=== PATIENT | male | born 1980 | race Caucasian/White ===

== ENCOUNTER 2018-01-11 11:37 | Emergency (ER) | payer OTHER, SELFPAY | END 2018-01-11 13:56 | disposition home or self-care (01) | DX: S06.0X0D Concussion without loss of consciousness, subsequent encounter (principal) | CPT/HCPCS: 96372; 99283; J1885 ==

== ENCOUNTER 2018-03-15 09:04 | Emergency (ER) | payer OTHER, MEDICAID, SELFPAY ==
[2018-03-15 09:05] VITALS: BP 142/101; PULSE 89; RESP 20; TEMP 37.1; O2SAT 99
--- NOTE | 2018-03-15 09:23 | ED.BURNSMOKE ---
HPI - Burn/Smoke Inhalation General Stated complaint: BLISTERS Time Seen by Provider: 03/15/18 09:05 Source: patient Mode of arrival: ambulatory Limitations: no limitations History of Present Illness HPI Narrative: Otherwise healthy 37-year-old male here for evaluation of a sunburn that is blistering on his bilateral upper arms. Patient states that it happened 2 days ago. States he has tried aloe which has cause it to be worse. Has not tried anything else. Is here because of the pain. Related Data Home Medications Medication Instructions Recorded Confirmed acyclovir [Zovirax] 400 mg PO BID #0 01/19/17 albuterol sulfate [Ventolin HFA] 1 puff INH #0 01/19/17 atorvastatin [Lipitor] 20 mg PO QDAY #0 01/19/17 azithromycin [Zithromax] 250 mg #0 01/19/17 disulfiram [Antabuse] 500 mg PO #0 01/19/17 hydrochlorothiazide 12.5 mg PO QDAY #0 01/19/17 metoprolol tartrate 25 mg PO BID #0 10/09/17 Previous Rx's Medication Instructions Recorded levofloxacin [Levaquin] 750 mg PO QDAY #15 tab 01/19/17 albuterol sulfate [Ventolin HFA] 0 puff INH Q4HP PRN #1 ea 10/09/17 Allergies Allergy/AdvReac Type Severity Reaction Status Date / Time amlodipine [AMLODIPINE] Allergy Unknown Unverified 01/03/18 12:02 Review of Systems Constitutional Denies chills, Denies fever(s) and Denies headache(s) ENT Ears, Nose, Mouth, and Throat: Denies headache(s) Cardiovascular Denies chest pain and Denies dyspnea Respiratory Denies cough and Denies dyspnea Integumentary/Breasts Comments: Sunburn with blistering bilateral arms Neurologic Denies headache(s) [facility] Social History Smoking Status: Never smoker Exam Const General: cooperative and well developed Nutritional Appearance: well nourished Orientation: alert, awake, oriented x3 and not confused Resp Effort & Inspection: normal respiratory effort Skin Other: Patient with sunburn bilateral upper arms from the elbows to the shoulders laterally with blistering and redness MDM - Burn/Smoke Inhalation MDM Narrative Medical decision making narrative: Patient was asking for pain medication. Told him that sunburns did not qualify for pain meds. We did discuss other treatments to include aloe and lotions. We also discussed use of Motrin. Informed him that in the future he does need to use sunscreen. Told him that blistering sunburns to increase his risk of skin cancer. He expressed understanding and agreement with plan Discharge Plan Departure Patient Disposition: Home, Self-Care Clinical Impression: Sunburn Instructions: How to Avoid Sunburn, Sunburn (Alternative Therapy), DI for Sunburn Activity Restrictions/Additional Instructions: Recommend that you continue the Motrin/Tylenol as needed. You can use other lotions such as Cetaphil or Aquaphor as needed. He could also use aloe. Recommend that in the future you wear sunscreen. Return to the emergency department for any new or worsening symptoms Prescriptions: No Action atorvastatin [Lipitor] 20 MG tablet 20 mg PO QDAY Qty: 0 RF: 0 azithromycin [Zithromax] 250 MG tablet 250 mg Qty: 0 RF: 0 albuterol sulfate [Ventolin HFA] 90 MCG/PUFF HFA aerosol inhaler 1 puff INH Qty: 0 RF: 0 acyclovir [Zovirax] 400 MG tablet 400 mg PO BID Qty: 0 RF: 0 hydrochlorothiazide 12.5 MG capsule 12.5 mg PO QDAY Qty: 0 RF: 0 disulfiram [Antabuse] 500 MG tablet 500 mg PO Qty: 0 RF: 0 levofloxacin [Levaquin] 750 MG tablet 750 mg PO QDAY Qty: 15 RF: 0 metoprolol tartrate 25 MG tablet 25 mg PO BID Qty: 0 RF: 0 albuterol sulfate [Ventolin HFA] 90 MCG/PUFF HFA aerosol inhaler INH Q4HP PRNQty: 1 RF: 0
== END 2018-03-15 09:38 | disposition home or self-care (01) ==
PROVIDERS: Emergency Provider Emergency Medicine; PCP Family Medicine
DX: L55.9 Sunburn, unspecified (principal)
CPT/HCPCS: 99282

== ENCOUNTER 2018-04-18 04:55 | Emergency (ER) | payer OTHER, MEDICAID, SELFPAY ==
[2018-04-18 05:03] VITALS: BP 147/101; PULSE 116; RESP 20; TEMP 36.9; O2SAT 100
[2018-04-18] MEDS: METOPROLOL 25 MG TABLET PO (05:42)
[2018-04-18 05:46] VITALS: BP 134/65; PULSE 91; RESP 18; O2SAT 100
--- NOTE | 2018-04-18 05:46 | ED_ITS ---
HPI - Arrhythmia/Palpitations General Chief Complaint: Arrhythmia/Palpitations Stated Complaint: head pain left, dizziness Time Seen by Provider: 04/18/18 05:04 Source: patient Mode of arrival: ambulatory Limitations: no limitations History of Present Illness HPI narrative: 38-year-old male here with multiple complaints. Patient states that for the past couple days he has had left-sided neck pain that gets worse when he touches it. Is in the back of his neck. No trauma. Patient is also here for evaluation of both low and high blood pressure and also a fast heart rate. He states that he does have a prescription for metoprolol but has been ? weaning himself off that medication because he states that when he smokes marijuana which he did last evening and then also several hours ago his blood pressure goes low. Patient also states that he feels now like he is coming down from his marijuana high and his heart rate is fast because of that. He is also here for complaints of pain and tingling around his left elbow and also on his left knee. Patient states that he was gurgling his symptoms and read some information about having a ?blood clot? and that is what he is concerned about. Related Data Home Medications Medication Instructions Recorded Confirmed acyclovir [Zovirax] 400 mg PO BID #0 01/19/17 albuterol sulfate [Ventolin HFA] 1 puff INH #0 01/19/17 atorvastatin [Lipitor] 20 mg PO QDAY #0 01/19/17 azithromycin [Zithromax] 250 mg #0 01/19/17 disulfiram [Antabuse] 500 mg PO #0 01/19/17 hydrochlorothiazide 12.5 mg PO QDAY #0 01/19/17 metoprolol tartrate 25 mg PO BID #0 10/09/17 Previous Rx's Medication Instructions Recorded levofloxacin [Levaquin] 750 mg PO QDAY #15 tab 01/19/17 albuterol sulfate [Ventolin HFA] 0 puff INH Q4HP PRN #1 ea 10/09/17 Allergies Allergy/AdvReac Type Severity Reaction Status Date / Time amlodipine [AMLODIPINE] Allergy Unknown Unverified 01/03/18 12:02 Review of Systems Constitutional Denies fatigue and Denies fever(s) ENT Ears, Nose, Mouth, and Throat: Denies vertigo and Reports dizziness Cardiovascular Denies chest pain, Reports rapid heart rate, Reports palpitations and Denies dyspnea Respiratory Denies cough and Denies dyspnea Gastrointestinal Gastrointestinal: Denies abdominal pain, Denies diarrhea, Denies nausea and Denies vomiting Musculoskeletal Comments: Occasional Left elbow burning and pain Left knee cap pain Integumentary/Breasts Denies lesions and Denies rash Neurologic Denies confusion, Denies vertigo and Reports dizziness Psychiatric Reports anxiety and Denies confusion Endocrine Denies fatigue and Reports palpitations Hematologic/Lymphatic Denies easy bleeding and Denies easy bruising [facility] Medical History Anxiety (Acute) Hypertension (Acute) Social History marital status: unknown Smoking Status: Never smoker alcohol intake: current substance use type: marijuana Exam Initial Vital Signs Initial Vital Signs: Vital Signs Temperature 98.5 F 04/18/18 05:03 Pulse Rate 116 H 04/18/18 05:03 Respiratory Rate 20 04/18/18 05:03 Blood Pressure 147/101 H 04/18/18 05:03 Pulse Oximetry 100 04/18/18 05:03 Const General: cooperative, healthy appearing, comfortable, well developed and well groomed Orientation: alert, awake and oriented x3 HENMT Head: normal to inspection, normocephalic and atraumatic Ears: TM's normal bilaterally Eyes General: appearance normal, both eyes and all related structures EOM: EOM intact bilaterally Neck Other: Patient with reproducible tenderness to palpation over the left-sided paraspinal/occipital muscle/trapezius muscle. Resp Effort & Inspection: normal respiratory effort Auscultation: clear to auscultation bilaterally Cardio Rate: tachycardic Rhythm: regular rhythm Pulses: radial pulses present Skin Lesions: no lesions Rashes: no rashes Extrem Other: Left upper extremity left lower extremity unremarkable Psych Appearance: grossly normal and well kempt Course Orders Ordered: ED Orders 04/18/18 05:06 EKG-12 Lead Stat Discontinued Medications Metoprolol Tartrate (Lopressor) 25 mg PO NOW ONE Stop: 04/18/18 05:30 Vital Signs - 8 hr 04/18/18 05:03 Temperature 98.5 F Pulse Rate 116 H Respiratory Rate 20 Blood Pressure 147/101 H Pulse Oximetry 100 MDM - Arrhythmia/Palpitations ECG Data Attestation: I personally reviewed and interpreted this ECG as follows: Prior ECG tracings: not available for review Interpretation: Sinus rhythm Ventricular rate of 98 Normal axis QRS 124 milliseconds QTC [address] T wave changes MDM Narrative Medical decision making narrative: No emergent condition found on history and physical exam today. Patient does admit to smoking marijuana several hours ago and feels like he is coming down from his high from that. That could explain his tachycardia and his hypertension. He also states that he did not take his blood pressure medicine and has been sporadically taking it because when he smokes marijuana his blood pressure is normally low. He was given a dose of his metoprolol here in the emergency department. The left-sided neck pain is reproducible and musculoskeletal in nature. I suspect tension like headaches. The symptoms that he is having in his left arm occur when his arm is bent which could be a ulnar nerve entrapment or could also be related to his left-sided neck pain and nerve entrapment in his neck. We had a long discussion regarding his symptoms. Informed him that it is important that he takes his medication as directed. Informed him that he should refrain from using marijuana until his blood pressure is more controlled. He was given return precautions. Will hold on further workup for now. He expressed understanding and agreement with plan. Discharge Plan Departure Patient Disposition: Home, Self-Care Clinical Impression: Neck pain, Tachycardia, Hypertension Instructions: Hypertension (Alternative Therapy), Essential Hypertension Activity Restrictions/Additional Instructions: Take all of your medications as directed. Recommend that you stop smoking the weed until your blood pressure is level. Call your primary care provider for a follow up. Prescriptions: No Action atorvastatin [Lipitor] 20 MG tablet 20 mg PO QDAY Qty: 0 RF: 0 azithromycin [Zithromax] 250 MG tablet 250 mg Qty: 0 RF: 0 albuterol sulfate [Ventolin HFA] 90 MCG/PUFF HFA aerosol inhaler 1 puff INH Qty: 0 RF: 0 acyclovir [Zovirax] 400 MG tablet 400 mg PO BID Qty: 0 RF: 0 hydrochlorothiazide 12.5 MG capsule 12.5 mg PO QDAY Qty: 0 RF: 0 disulfiram [Antabuse] 500 MG tablet 500 mg PO Qty: 0 RF: 0 levofloxacin [Levaquin] 750 MG tablet 750 mg PO QDAY Qty: 15 RF: 0 metoprolol tartrate 25 MG tablet 25 mg PO BID Qty: 0 RF: 0 albuterol sulfate [Ventolin HFA] 90 MCG/PUFF HFA aerosol inhaler INH Q4HP PRNQty: 1 RF: 0
== END 2018-04-18 05:46 | disposition home or self-care (01) ==
PROVIDERS: Emergency Provider Emergency Medicine; PCP Family Medicine
DX: M54.2 Cervicalgia (principal); R00.0 Tachycardia, unspecified; I10 Essential (primary) hypertension
CPT/HCPCS: 93005; 99282; 99283

== ENCOUNTER 2018-07-10 20:37 | Emergency (ER) | payer OTHER, MEDICAID, SELFPAY ==
[2018-07-10 20:45] VITALS: BP 158/102; PULSE 118; RESP 20; O2SAT 100
--- NOTE | 2018-07-10 21:35 | ED_ITS ---
HPI - General Adult <DEBORAH Glover - Last Filed: 07/10/18 21:55> General Chief complaint: Toxicology Problem Stated complaint: SOMETHING IS NOT RIGHT Time Seen by Provider: 07/10/18 21:04 Source: patient Mode of arrival: ambulatory Limitations: no limitations History of Present Illness HPI narrative: Patient With a history of hypertension and hyperlipidemia presents with chief complaint of feeling really weird after drinking a Sprite that some the prepared for him earlier today. He is concerned that there was something in the sprite. He states he had onset of flushing, as well as shortness of breath. He denies chest pain fever nausea vomiting or diarrhea any point. He states his heart rate is high, but is concerned that is because he is dehydrated. During my initial interview, the patient asked if he could go home as he does not like needles. He denies any drug use other than smoking marijuana 2 days ago. Patient states that he had bloodshot eyes earlier today, but they are better now. Related Data Home Medications Medication Instructions Recorded Confirmed acyclovir [Zovirax] 400 mg PO BID #0 01/19/17 albuterol sulfate [Ventolin HFA] 1 puff INH #0 01/19/17 atorvastatin [Lipitor] 20 mg PO QDAY #0 01/19/17 azithromycin [Zithromax] 250 mg #0 01/19/17 disulfiram [Antabuse] 500 mg PO #0 01/19/17 hydrochlorothiazide 12.5 mg PO QDAY #0 01/19/17 metoprolol tartrate 25 mg PO BID #0 10/09/17 Previous Rx's Medication Instructions Recorded levofloxacin [Levaquin] 750 mg PO QDAY #15 tab 01/19/17 albuterol sulfate [Ventolin HFA] 0 puff INH Q4HP PRN #1 ea 10/09/17 Allergies Allergy/AdvReac Type Severity Reaction Status Date / Time amlodipine [AMLODIPINE] Allergy Unknown Unverified 01/03/18 12:02 Review of Systems <DEBORAH Glover - Last Filed: 07/10/18 21:55> Review of Systems GENERAL: Denies chills, fatigue, malaise, fever, sweats. HEENT: Denies sinus pain, ear pain, sore throat, difficulty swallowing, dizziness. RESPIRATORY: Denies dyspnea, cough, wheezing, hemoptysis, sputum. CARDIOVASCULAR: Denies chest pain, palpitations, orthopnea, edema, GASTROINTESTINAL: Denies nausea, vomiting, abdominal pain, diarrhea, constipation, melena. : Denies dysuria, frequency, incontinence, hematuria, urinary retention. MUSCULOSKELETAL: denies weakness, joint pain, or bony pain SKIN: Denies rash, skin lesions, or other NEUROLOGIC: Denies weakness, headache, numbness, change in speech, confusion, seizures, incoordination. PSYCHIATRIC: No concerning psychosocial issues. 12 point review of systems is negative except for those stated above Exam <JESUSITA Glover-BC - Last Filed: 07/10/18 21:55> Narrative Exam Narrative: GENERAL: This is a well-nourished, well-developed patient, Lying on stretcher HEAD: Atraumatic. Normocephalic. No temporal or scalp tenderness. EYES: Pupils equal round and reactive. Extraocular motions intact. No scleral icterus. No injection or drainage. ENT: Nose without bleeding, purulent drainage or septal hematoma. Throat without erythema, tonsillar hypertrophy or exudate. Uvula midline. Airway patent. NECK: Trachea midline. No JVD or lymphadenopathy. Supple, nontender, no meningeal signs. CARDIOVASCULAR: tachycardic rate and rhythm without murmurs, gallops, or rubs. RESPIRATORY: Clear to auscultation. Breath sounds equal bilaterally. No wheezes , rales, or rhonchi. no increased respiratory effort. No cough on exam. GASTROINTESTINAL: Abdomen soft, non-tender, nondistended. No hepato-splenomegaly , or palpable masses. No guarding. Active bowel sounds all 4 quadrants. EXTREMITIES: No clubbing, cyanosis, or edema. No joint tenderness, effusion, or edema noted. BACK: Nontender without deformity or crepitance. No flank tenderness. NEURO: AOx3. SKIN: No rash or erythema. Initial Vital Signs Initial Vital Signs: Vital Signs Pulse Rate 118 H 07/10/18 20:45 Respiratory Rate 20 07/10/18 20:45 Blood Pressure 158/102 H 07/10/18 20:45 Pulse Oximetry 100 07/10/18 20:45 <Marizol Dodge DO - Last Filed: 07/11/18 00:12> Initial Vital Signs Initial Vital Signs: Vital Signs Pulse Rate 118 H 07/10/18 20:45 Respiratory Rate 20 07/10/18 20:45 Blood Pressure 158/102 H 07/10/18 20:45 Pulse Oximetry 100 07/10/18 20:45 Course <BEAU GloverP-BC - Last Filed: 07/10/18 21:55> Course Narrative: 22:00 signed patient out to Dr Dodge with labs pending Orders Ordered: ED Orders 07/10/18 21:15 EKG-12 Lead Stat 07/10/18 21:30 Complete Blood Count AUTO DIFF Stat Comprehensive Metabolic Panel Stat Ethanol (ETOH) Stat Troponin & CK Cardiac Panel Stat 07/10/18 22:37 Urinalysis and Microscopic Stat Urine Drug Screen, Rapid Stat Discontinued Medications Sodium Chloride (Normal Saline 0.9%) 1,000 mls @ 1,000 mls/hr IV BOLUS ONE Stop: 07/10/18 22:14 Last Infusion: 07/10/18 23:20 Dose: 1,000 mls/hr Admin: 07/10/18 21:40 Dose: 1,000 mls/hr Ibuprofen (Advil) 800 mg PO NOW ONE Stop: 07/10/18 22:23 Last Admin: 07/10/18 22:23 Dose: 800 mg Reevaluation(s) Reevaluation #1: Patient is lying in bed talking on phone. Patient states he stopped taking his daily medications as he is smoking marijuana. I discussed at length with patient he needs to take his daily medications even if he is smoking marijuana. Time: 21:40 Vital Signs - 8 hr 07/10/18 20:45 07/10/18 21:46 07/10/18 22:30 Pulse Rate 118 H 118 H 96 H Respiratory Rate 20 20 17 Blood Pressure 158/102 H 158/102 H Blood Pressure [Left Arm] 128/84 Pulse Oximetry 100 100 100 <Marizol Dodge DO - Last Filed: 07/11/18 00:12> Orders Ordered: ED Orders 07/10/18 21:15 EKG-12 Lead Stat 07/10/18 21:30 Complete Blood Count AUTO DIFF Stat Comprehensive Metabolic Panel Stat Ethanol (ETOH) Stat Troponin & CK Cardiac Panel Stat 07/10/18 22:37 Urinalysis and Microscopic Stat Urine Drug Screen, Rapid Stat Discontinued Medications Sodium Chloride (Normal Saline 0.9%) 1,000 mls @ 1,000 mls/hr IV BOLUS ONE Stop: 07/10/18 22:14 Last Infusion: 07/10/18 23:20 Dose: 1,000 mls/hr Admin: 07/10/18 21:40 Dose: 1,000 mls/hr Ibuprofen (Advil) 800 mg PO NOW ONE Stop: 07/10/18 22:23 Last Admin: 07/10/18 22:23 Dose: 800 mg Vital Signs - 8 hr 07/10/18 20:45 07/10/18 21:46 07/10/18 22:30 Pulse Rate 118 H 118 H 96 H Respiratory Rate 20 20 17 Blood Pressure 158/102 H 158/102 H Blood Pressure [Left Arm] 128/84 Pulse Oximetry 100 100 100 Medical Decision Making <JESUSITA Glover- - Last Filed: 07/10/18 21:55> Lab Data Result diagrams: 07/10/18 21:30 07/10/18 21:30 Lab Results 07/10/18 07/10/18 07/10/18 Range/Units 21:30 21:30 22:37 WBC 12.1 H (4.5-11.0) X10^3/uL RBC 5.23 (4.5-5.9) X10^6/uL Hgb 15.1 (13.5-17.5) g/dL Hct 45.2 (41-53) % MCV 86.4 (80-100) fL MCH 29.0 (26-34) PG MCHC 33.5 (30-36) % RDW 12.8 (11.6-14.8) % Plt Count 272 (150-400) X10^3/uL Neut % (Auto) 68.6 (50-75) % Lymph % (Auto) 20.8 L (25-40) % [place] % (Auto) 8.1 (3-14) % Eos % (Auto) 1.6 L (2-4) % Baso % (Auto) 0.9 (0-2) % Neut # (Auto) 8300 H (2331-9507) /uL Sodium 149 H (137-145) mmol/L Potassium 3.4 (3.4-5.1) mmol/L Chloride 107 (98-107) mmol/L Carbon Dioxide 27 (22-32) mmol/L BUN 18 (9-20) mg/dL Creatinine 0.90 (0.66-1.25) mg/dL Estimated GFR > 60.0 (>60) mL/min BUN/Creatinine Ratio 20.0 (6-22) Glucose 90 (70-100) mg/dL Calcium 9.2 (8.4-10.2) mg/dL Total Bilirubin 0.3 (0.2-1.3) mg/dL AST 37 (17-59) IU/L ALT 52 (21-72) IU/L Alkaline Phosphatase 112 (38-126) U/L Total Creatine Kinase 110 (55-170) U/L CK-MB (CK-2) 0.47 (<2.37) ng/mL CK-MB (CK-2) Rel Index 0.4 L (1.5-5.0) % Troponin I 0.020 (0.01-0.034) ng/mL Total Protein 7.9 (6.3-8.2) g/dL Albumin 4.6 (3.5-5.0) g/dL Globulin 3.3 (1.7-4.1) g/dL Albumin/Globulin Ratio 1.4 (1.0-2.8) Urine Color Yellow Urine Appearance Clear Urine pH 7.0 (4.5-8.0) Ur Specific [place] 1.020 (1.000-1.035) Urine Protein Negative (Negative) Urine Glucose (UA) Negative (Normal) g/dL Urine Ketones Trace H (NEGATIVE) Urine Occult Blood Negative (Negative) Urine Nitrate Negative (Negative) Urine Bilirubin Negative (NEGATIVE) Urine Urobilinogen 0.2 (0.2) E.U./dL Ur Leukocyte Esterase Negative (NEGATIVE) Urine RBC None seen (0-5/HPF) Urine WBC None seen (0-5/HPF) Urine Bacteria None seen (None) Ur Culture Indicated? Cult not indicated Micro UA Comment Microscopic normal Urine Opiates Screen (Negative) Ur Oxycodone Screen (Negative) Urine Methadone Screen (Negative) Ur Barbiturates Screen (Negative) U Tricyclic Antidepress (Negative) Ur Phencyclidine Scrn (Negative) Ur Amphetamines Screen (Negative) U Methamphetamines Scrn (Negative) Ur MDMA Scrn (Ecstasy) (Negative) U Benzodiazepines Scrn (Negative) Urine Cocaine Screen (Negative) U Marijuana (THC) Screen (Negative) Ethyl Alcohol 39 mg/dL 07/10/18 Range/Units 22:37 WBC (4.5-11.0) X10^3/uL RBC (4.5-5.9) X10^6/uL Hgb (13.5-17.5) g/dL Hct (41-53) % MCV (80-100) fL MCH (26-34) PG MCHC (30-36) % RDW (11.6-14.8) % Plt Count (150-400) X10^3/uL Neut % (Auto) (50-75) % Lymph % (Auto) (25-40) % [place] % (Auto) (3-14) % Eos % (Auto) (2-4) % Baso % (Auto) (0-2) % Neut # (Auto) (7922-2430) /uL Sodium (137-145) mmol/L Potassium (3.4-5.1) mmol/L Chloride (98-107) mmol/L Carbon Dioxide (22-32) mmol/L BUN (9-20) mg/dL Creatinine (0.66-1.25) mg/dL Estimated GFR (>60) mL/min BUN/Creatinine Ratio (6-22) Glucose (70-100) mg/dL Calcium (8.4-10.2) mg/dL Total Bilirubin (0.2-1.3) mg/dL AST (17-59) IU/L ALT (21-72) IU/L Alkaline Phosphatase (38-126) U/L Total Creatine Kinase (55-170) U/L CK-MB (CK-2) (<2.37) ng/mL CK-MB (CK-2) Rel Index (1.5-5.0) % Troponin I (0.01-0.034) ng/mL Total Protein (6.3-8.2) g/dL Albumin (3.5-5.0) g/dL Globulin (1.7-4.1) g/dL Albumin/Globulin Ratio (1.0-2.8) Urine Color Urine Appearance Urine pH (4.5-8.0) Ur Specific [place] (1.000-1.035) Urine Protein (Negative) Urine Glucose (UA) (Normal) g/dL Urine Ketones (NEGATIVE) Urine Occult Blood (Negative) Urine Nitrate (Negative) Urine Bilirubin (NEGATIVE) Urine Urobilinogen (0.2) E.U./dL Ur Leukocyte Esterase (NEGATIVE) Urine RBC (0-5/HPF) Urine WBC (0-5/HPF) Urine Bacteria (None) Ur Culture Indicated? Micro UA Comment Urine Opiates Screen Negative (Negative) Ur Oxycodone Screen Negative (Negative) Urine Methadone Screen Negative (Negative) Ur Barbiturates Screen Negative (Negative) U Tricyclic Antidepress Negative (Negative) Ur Phencyclidine Scrn Negative (Negative) Ur Amphetamines Screen Negative (Negative) U Methamphetamines Scrn Negative (Negative) Ur MDMA Scrn (Ecstasy) Negative (Negative) U Benzodiazepines Scrn Negative (Negative) Urine Cocaine Screen Negative (Negative) U Marijuana (THC) Screen Positive H (Negative) Ethyl Alcohol mg/dL ECG Data Attestation: I personally reviewed and interpreted this ECG as follows: Interpretation: Sinus tachycardia. Ventricular rate 109. No ST elevation or depression. No ectopy noted. <Marizol Dodge, DO - Last Filed: 07/11/18 00:12> Lab Data Lab results reviewed: Yes I reviewed the patient's lab results. Lab Results 07/10/18 07/10/18 07/10/18 Range/Units 21:30 21:30 22:37 WBC 12.1 H (4.5-11.0) X10^3/uL RBC 5.23 (4.5-5.9) X10^6/uL Hgb 15.1 (13.5-17.5) g/dL Hct 45.2 (41-53) % MCV 86.4 (80-100) fL MCH 29.0 (26-34) PG MCHC 33.5 (30-36) % RDW 12.8 (11.6-14.8) % Plt Count 272 (150-400) X10^3/uL Neut % (Auto) 68.6 (50-75) % Lymph % (Auto) 20.8 L (25-40) % [place] % (Auto) 8.1 (3-14) % Eos % (Auto) 1.6 L (2-4) % Baso % (Auto) 0.9 (0-2) % Neut # (Auto) 8300 H (3947-4362) /uL Sodium 149 H (137-145) mmol/L Potassium 3.4 (3.4-5.1) mmol/L Chloride 107 (98-107) mmol/L Carbon Dioxide 27 (22-32) mmol/L BUN 18 (9-20) mg/dL Creatinine 0.90 (0.66-1.25) mg/dL Estimated GFR > 60.0 (>60) mL/min BUN/Creatinine Ratio 20.0 (6-22) Glucose 90 (70-100) mg/dL Calcium 9.2 (8.4-10.2) mg/dL Total Bilirubin 0.3 (0.2-1.3) mg/dL AST 37 (17-59) IU/L ALT 52 (21-72) IU/L Alkaline Phosphatase 112 (38-126) U/L Total Creatine Kinase 110 (55-170) U/L CK-MB (CK-2) 0.47 (<2.37) ng/mL CK-MB (CK-2) Rel Index 0.4 L (1.5-5.0) % Troponin I 0.020 (0.01-0.034) ng/mL Total Protein 7.9 (6.3-8.2) g/dL Albumin 4.6 (3.5-5.0) g/dL Globulin 3.3 (1.7-4.1) g/dL Albumin/Globulin Ratio 1.4 (1.0-2.8) Urine Color Yellow Urine Appearance Clear Urine pH 7.0 (4.5-8.0) Ur Specific [place] 1.020 (1.000-1.035) Urine Protein Negative (Negative) Urine Glucose (UA) Negative (Normal) g/dL Urine Ketones Trace H (NEGATIVE) Urine Occult Blood Negative (Negative) Urine Nitrate Negative (Negative) Urine Bilirubin Negative (NEGATIVE) Urine Urobilinogen 0.2 (0.2) E.U./dL Ur Leukocyte Esterase Negative (NEGATIVE) Urine RBC None seen (0-5/HPF) Urine WBC None seen (0-5/HPF) Urine Bacteria None seen (None) Ur Culture Indicated? Cult not indicated Micro UA Comment Microscopic normal Urine Opiates Screen (Negative) Ur Oxycodone Screen (Negative) Urine Methadone Screen (Negative) Ur Barbiturates Screen (Negative) U Tricyclic Antidepress (Negative) Ur Phencyclidine Scrn (Negative) Ur Amphetamines Screen (Negative) U Methamphetamines Scrn (Negative) Ur MDMA Scrn (Ecstasy) (Negative) U Benzodiazepines Scrn (Negative) Urine Cocaine Screen (Negative) U Marijuana (THC) Screen (Negative) Ethyl Alcohol 39 mg/dL 07/10/18 Range/Units 22:37 WBC (4.5-11.0) X10^3/uL RBC (4.5-5.9) X10^6/uL Hgb (13.5-17.5) g/dL Hct (41-53) % MCV (80-100) fL MCH (26-34) PG MCHC (30-36) % RDW (11.6-14.8) % Plt Count (150-400) X10^3/uL Neut % (Auto) (50-75) % Lymph % (Auto) (25-40) % [place] % (Auto) (3-14) % Eos % (Auto) (2-4) % Baso % (Auto) (0-2) % Neut # (Auto) (0405-6883) /uL Sodium (137-145) mmol/L Potassium (3.4-5.1) mmol/L Chloride (98-107) mmol/L Carbon Dioxide (22-32) mmol/L BUN (9-20) mg/dL Creatinine (0.66-1.25) mg/dL Estimated GFR (>60) mL/min BUN/Creatinine Ratio (6-22) Glucose (70-100) mg/dL Calcium (8.4-10.2) mg/dL Total Bilirubin (0.2-1.3) mg/dL AST (17-59) IU/L ALT (21-72) IU/L Alkaline Phosphatase (38-126) U/L Total Creatine Kinase (55-170) U/L CK-MB (CK-2) (<2.37) ng/mL CK-MB (CK-2) Rel Index (1.5-5.0) % Troponin I (0.01-0.034) ng/mL Total Protein (6.3-8.2) g/dL Albumin (3.5-5.0) g/dL Globulin (1.7-4.1) g/dL Albumin/Globulin Ratio (1.0-2.8) Urine Color Urine Appearance Urine pH (4.5-8.0) Ur Specific [place] (1.000-1.035) Urine Protein (Negative) Urine Glucose (UA) (Normal) g/dL Urine Ketones (NEGATIVE) Urine Occult Blood (Negative) Urine Nitrate (Negative) Urine Bilirubin (NEGATIVE) Urine Urobilinogen (0.2) E.U./dL Ur Leukocyte Esterase (NEGATIVE) Urine RBC (0-5/HPF) Urine WBC (0-5/HPF) Urine Bacteria (None) Ur Culture Indicated? Micro UA Comment Urine Opiates Screen Negative (Negative) Ur Oxycodone Screen Negative (Negative) Urine Methadone Screen Negative (Negative) Ur Barbiturates Screen Negative (Negative) U Tricyclic Antidepress Negative (Negative) Ur Phencyclidine Scrn Negative (Negative) Ur Amphetamines Screen Negative (Negative) U Methamphetamines Scrn Negative (Negative) Ur MDMA Scrn (Ecstasy) Negative (Negative) U Benzodiazepines Scrn Negative (Negative) Urine Cocaine Screen Negative (Negative) U Marijuana (THC) Screen Positive H (Negative) Ethyl Alcohol mg/dL ECG Data Attestation: I personally reviewed and interpreted this ECG as follows: Prior ECG tracings: available for review Interpretation: Normal sinus rhythm rate 109 as needed herbal [address] changes similar to previous EKG MDM Narrative Medical decision making narrative: I took over for Theodore Glover in evaluated patient myself. He says he drinks a Sprite and initially felt flushed. He denies drinking any alcohol though his alcohol level is positive it is within the normal limits. He is also positive for marijuana. He does not is feel that someone is out to get him he does not seem gravely disabled or paranoid. He denies drinking alcohol. Discharge Plan Departure Patient Disposition: Home Clinical Impression: Alcohol intoxication Discharge Date/Time: 07/10/18 23:23 Interventions: ED Discharge Assessment Last Done: 07/10/18 23:22 Instructions: DI for Drug or Alcohol Withdrawal Activity Restrictions/Additional Instructions: *You have been diagnosed with alcohol intoxication *What to do: You're alcohol level is not over the legal limit but it is slightly elevated. This may be contributing to some your symptoms *Continue to take medications as directed -take mental daily as prescribed *Follow up with your primary care provider in 2-3 days *Return to ER if you should have any new, worsening or concerning symptoms Prescriptions: No Action atorvastatin [Lipitor] 20 MG tablet 20 mg PO QDAY Qty: 0 RF: 0 azithromycin [Zithromax] 250 MG tablet 250 mg Qty: 0 RF: 0 albuterol sulfate [Ventolin HFA] 90 MCG/PUFF HFA aerosol inhaler 1 puff INH Qty: 0 RF: 0 acyclovir [Zovirax] 400 MG tablet 400 mg PO BID Qty: 0 RF: 0 hydrochlorothiazide 12.5 MG capsule 12.5 mg PO QDAY Qty: 0 RF: 0 disulfiram [Antabuse] 500 MG tablet 500 mg PO Qty: 0 RF: 0 levofloxacin [Levaquin] 750 MG tablet 750 mg PO QDAY Qty: 15 RF: 0 metoprolol tartrate 25 MG tablet 25 mg PO BID Qty: 0 RF: 0 albuterol sulfate [Ventolin HFA] 90 MCG/PUFF HFA aerosol inhaler INH Q4HP PRNQty: 1 RF: 0 Referrals: Tyler Lubin MD [Primary Care Provider] -
[2018-07-10] MEDS: SODIUM CHLORIDE 0.9% 1,000 ML 1000 ML IV (21:40)
[2018-07-10 21:46] VITALS: BP 158/102; PULSE 118; RESP 20; O2SAT 100
[2018-07-10 21:49] LABS: Add Manual Diff / Slide Review NO; Basophils Percent Auto 0.9 % (0-2); Eosinophils Percent Auto 1.6 % (2-4); Hematocrit 45.2 % (41-53); Hemoglobin 15.1 g/dL (13.5-17.5); Lymphocytes Percent Auto 20.8 % (25-40); Mean Corpuscular HGB Conc 33.5 % (30-36); Mean Corpuscular Volume 86.4 fL (80-100); Monocytes Percent Auto 8.1 % (3-14); Neutrophils Absolute Auto 8300 /uL (3000-5900); Neutrophils Percent Auto 68.6 % (50-75); Platelet Count 272 X10^3/uL (150-400); Red Blood Cell Count 5.23 X10^6/uL (4.5-5.9); Red Cell Distribution Width 12.8 % (11.6-14.8); White Blood Cell Count 12.1 X10^3/uL (4.5-11.0)
[2018-07-10 21:56] LABS: Alanine Aminotransferase 52 IU/L (21-72); Albumin 4.6 g/dL (3.5-5.0); Albumin Globulin Ratio 1.4 (1.0-2.8); Alkaline Phosphatase 112 U/L (38-126); Aspartate Aminotransferase 37 IU/L (17-59); Bilirubin Total 0.3 mg/dL (0.2-1.3); Blood Urea Nitrogen 18 mg/dL (9-20); Calcium 9.2 mg/dL (8.4-10.2); Carbon Dioxide 27 mmol/L (22-32); Chloride 107 mmol/L (98-107); Creatine Kinase 110 U/L (55-170); Estimated Glomerular Filt Rate > 60.0 mL/min (>60); Ethanol (ETOH) 39 mg/dL; Globulin 3.3 g/dL (1.7-4.1); Glucose 90 mg/dL (70-100); HEMOLYSIS 15 (0-50); Potassium 3.4 mmol/L (3.4-5.1); Sodium 149 mmol/L (137-145); Total Protein 7.9 g/dL (6.3-8.2)
[2018-07-10 22:12] LABS: CKMB % Relative Index 0.4 % (1.5-5.0); Creatine Kinase MB 0.47 ng/mL (<2.37)
[2018-07-10] MEDS: IBUPROFEN 400 MG TABLET 800 MG PO (22:23)
[2018-07-10 22:30] VITALS: BP 128/84; PULSE 96; RESP 17; O2SAT 100
[2018-07-10 22:44] LABS: Bacteria Urine None Seen; RBC Urine None Seen (0-5/HPF); WBC Urine None Seen (0-5/HPF)
[2018-07-10 22:52] LABS: Urine Amphetamines Negative (Negative); Urine Barbiturates Negative (Negative); Urine Benzodiazepines Negative (Negative); Urine Cocaine Negative (Negative); Urine MDMA Negative (Negative); Urine Methadone Negative (Negative); Urine Methamphetamines Negative (Negative); Urine Morphine/Opi cutoff 2000 Negative (Negative); Urine Oxycodone Negative (Negative); Urine Phencyclidine Negative (Negative); Urine Tetrahydrocannabinol Positive (Negative); Urine Tricyclic Antidepressant Negative (Negative)
[2018-07-10 22:54] LABS: Appearance Urine UA CLEAR; Bilirubin Urine UA NEGATIVE (NEGATIVE); Color Urine UA YELLOW; Glucose Urine UA NEGATIVE (Normal); Ketones Urine UA TRACE (NEGATIVE); Leukocyte Esterase Urine UA NEGATIVE (NEGATIVE); Nitrite Urine UA NEGATIVE (Negative); Occult Blood Urine UA NEGATIVE (Negative); Protein Urine UA NEGATIVE (Negative); Urobilinogen Urine UA 0.2 E.U./dL (0.2)
[2018-07-10 22:57] LABS: Culture Indicated Urine Cult Not Indicated; Urine Comments Microscopic Normal
== END 2018-07-10 23:23 | disposition home or self-care (01) ==
PROVIDERS: Emergency Provider Nurse Practitioner Family; Family Provider Family Medicine; PCP Family Medicine
DX: F10.929 Alcohol use, unspecified with intoxication, unspecified (principal); R06.02 Shortness of breath
CPT/HCPCS: 80053; 80305; 80320; 81001; 82550; 82553; 84484; 85025; 93005; 93010; 96360; 96361; 99283; 99284

== ENCOUNTER 2019-05-10 12:05 | Emergency (ER) | payer OTHER, MEDICAID, SELFPAY ==
[2019-05-10 12:12] VITALS: BP 109/77; PULSE 76; RESP 18; TEMP 36.4; O2SAT 98
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
[2019-05-10 13:48] VITALS: BP 131/93; PULSE 78; RESP 16; O2SAT 99
== END 2019-05-10 13:48 | disposition home or self-care (01) ==
PROVIDERS: Emergency Provider Emergency Medicine; Family Provider Family Medicine; PCP Family Medicine
DX: S62.92XA Unspecified fracture of left hand, initial encounter for closed fracture (principal)
CPT/HCPCS: 29125; 73130; 99282; 99283

== ENCOUNTER 2019-05-14 12:55 | Emergency (ER) | payer OTHER, MEDICAID, SELFPAY ==
[2019-05-14 12:58] VITALS: BP 149/104; PULSE 78; RESP 18; TEMP 36.7; O2SAT 98
[2019-05-14 13:04] VITALS: PULSE 70
--- NOTE | 2019-05-14 13:58 | PC.NURSE ---
practioner readjusted and rewrapped splint.
--- NOTE | 2019-05-16 02:01 | ED.UPPEXIN ---
HPI - Extremity Injury (Upper) <SAMAN Pham - Last Filed: 05/16/19 02:22> General Chief Complaint: Extremity Injury, Upper Stated Complaint: left hand middle finger skin feels tight Time Seen by Provider: 05/14/19 12:59 Source: patient Mode of arrival: ambulatory Limitations: no limitations History of Present Illness HPI narrative: This is a 39-year-old male, previous smoker, presents with left 3rd finger swelling and discomfort. Patient was here and seen on 05/10/19 nondisplaced fracture on 4th metacarpal and had ulnar gutter splint applied to affected hand discharged to home with medication T3. Patient reports the 3rd finger swelling and discomfort is new today and denies any new or additional injury to affected finger after the x-ray was obtained several days ago. Patient states he has of follow-up appointment with the orthopedist and his primary care physician at the end of this month. Related Data Home Medications Medication Instructions Recorded Confirmed atorvastatin [Lipitor] 20 mg PO QPM #0 01/19/17 05/14/19 metoprolol tartrate 25 mg PO DAILY #0 10/09/17 05/14/19 albuterol sulfate [Ventolin HFA] 0 puff INH Q4HP PRN 05/10/19 05/14/19 alprazolam 0.5 mg PO TID PRN 05/10/19 05/14/19 paroxetine HCl 30 mg PO DAILY 05/10/19 05/14/19 Previous Rx's Medication Instructions Recorded acetaminophen-codeine 1 tab PO Q6H PRN #7 tab 05/10/19 [Tylenol-Codeine #3] acetaminophen-codeine 1 tab PO BID PRN #7 tab 05/14/19 [Tylenol-Codeine #3] Allergies Allergy/AdvReac Type Severity Reaction Status Date / Time amlodipine [AMLODIPINE] Allergy Unknown Verified 05/14/19 13:14 Review of Systems <SAMAN Pham - Last Filed: 05/16/19 02:22> Review of Systems ROS Unobtainable: All systems reviewed & are unremarkable except as noted in HPI and below PFSH <SAMAN Pham - Last Filed: 05/16/19 02:22> Medical History Anxiety (Acute) Hypertension (Acute) Social History marital status: unknown Smoking Status: Former smoker alcohol intake: current substance use type: marijuana Social History marital status: unknown Smoking Status: Former smoker alcohol intake: current substance use type: marijuana Exam <SAMAN Pham - Last Filed: 05/16/19 02:22> Narrative Exam Narrative: General appearance: well developed, well nourished, in no acute distress. Head: normocephalic, atraumatic, no scalp lesions, non-tender. Eye: pupil equal, round. EOMI. Nose: nares patent. Oral: mucosa moist. Neck/Thyroid: neck supple, full range of motion, no visible masses. Skin: no suspicious rashes, lesions over visible areas. Warm and dry. Heart: no clubbing, no cyanosis, no edema. Lungs: Breathing even and unlabored. No stridor. No accessory muscles used. Chest: normal shape and expansion. Abdomen: non-obese, non-distended. Neurologic: alert and oriented. Cognitive exam, SURFACE GRINDER and PNS grossly intact on informal exam. Psych: good eye contact, normal affect. Initial Vital Signs Initial Vital Signs: Vital Signs Temperature 98.0 F 05/14/19 12:58 Pulse Rate 78 05/14/19 12:58 Respiratory Rate 18 05/14/19 12:58 Blood Pressure 149/104 H 05/14/19 12:58 Pulse Oximetry 98 05/14/19 12:58 Extrem Left upper extremity: hand Details: normal capillary refill, neuromotor exam normal (on finger 1-3), tenderness Location: of the 3rd digit, vascular exam Details: radial pulse present and normal capillary refill, abnormal ROM of finger Details: pain with active ROM Location: of the 3rd digit and pain with passive ROM Location: of the 3rd digit and swelling Location: of the 3rd digit; no abrasions and no lacerations <Marizol Dodge DO - Last Filed: 05/18/19 07:07> Initial Vital Signs Initial Vital Signs: Vital Signs Temperature 98.0 F 05/14/19 12:58 Pulse Rate 78 05/14/19 12:58 Respiratory Rate 18 05/14/19 12:58 Blood Pressure 149/104 H 05/14/19 12:58 Pulse Oximetry 98 05/14/19 12:58 MDM - Extremity Injury (Upper) <SAMAN Pham - Last Filed: 05/16/19 02:22> Differential Diagnosis Differential diagnosis: Likely other (strained finger, finger pain) Medical Records Attestation: I reviewed the patient's medical records. [facility] Narrative Medical decision making narrative: The patient reports nontraumatic pain in his left 3rd finger. He was evaluated on the 05/10/19 and had an x-ray test done. At that time, x-ray shows a small ossific/calcific density along the radial aspect of the DIP joint of the middle finger which is likely related to previous injury and there was no acute findings for fracture. The Naman wrap on his splint was removed and applied less snugly today. X-ray test was deferred today's visit since there was no trauma or injury to on affected finger since last visit. Patient was able to move his fingers against resistance with some discomfort. Patient advised to elevate unaffected arm above his chest level and is resting and use a small ice pack on 3rd finger for swelling. His prescription for T3 was renewed today. Patient advised to follow with orthopedist as scheduled. Return precautions were discussed with the patient and no further questions at this time. Patient agrees with the treatment plan. Discharge Plan Departure Patient Disposition: Home Clinical Impression: Finger pain, left Fracture of hand Qualifiers: Encounter type: subsequent encounter Fracture type: closed Laterality: left Fracture healing: with routine healing Qualified Code(s): S62.92XD - Unspecified fracture of left wrist and hand, subsequent encounter for fracture with routine healing Discharge Date/Time: 05/14/19 14:04 Interventions: ED Discharge Assessment Last Done: 05/14/19 14:00 Instructions: DI for a Hand Fracture Activity Restrictions/Additional Instructions: You had been diagnosed with [nondisplaced left hand fracture on the 4th metacarpal on 05/10/19. We had placed on ulnar gutter splint during the visit. You had pain on L 3rd finger which is not covered on the splint. We deferred x-ray test at this time since you had not injured you're 3rd finger since the last x-ray test. This may caused due to malposition, tightness of the splint wrapped. You're splint Naman wrap has replaced during this visit. Please keep your splint all times and keep it clean and dry.]. What to do: *Take your medications as directed. I prescribed a few more tabs of T3 for the severe pain as you're requested. You could use [id number] Tylenol as needed and take T3 for only severe pain. T3 will cause drowsiness so please take precaution. Not drive, drink alcohol, operate heavy equipment while on the T3. Also this could cause constipation so take high-fiber diet [id number] stool softener. * Please follow up with the orthopedist next week Monday as scheduled and your primary care provider as scheduled on the . *Return to ED if you have any new, worsening, or concerning symptoms, such as [severe pain, swelling, tingling numbness to her fingertips, weakness to in her left fingers room, chest pain, breathing difficulty, any acute concerns]. Prescriptions: New acetaminophen-codeine [Tylenol-Codeine #3] 300-30 mg tablet 1 tab PO BID PRN (Reason: pain) Qty: 7 RF: 0 No Action atorvastatin [Lipitor] 20 MG tablet 20 mg PO QPM Qty: 0 RF: 0 metoprolol tartrate 25 MG tablet 25 mg PO DAILY Qty: 0 RF: 0 alprazolam 0.5 mg tablet 0.5 mg PO TID PRN (Reason: Anxiety) RF: 0 paroxetine HCl 20 mg tablet 30 mg PO DAILY RF: 0 albuterol sulfate [Ventolin HFA] 90 MCG/PUFF HFA aerosol inhaler INH Q4HP PRN (Reason: Shortness Of Breath) RF: 0 acetaminophen-codeine [Tylenol-Codeine #3] 300-30 mg tablet 1 tab PO Q6H PRN (Reason: pain) Qty: 7 RF: 0 Referrals: [facility] [Outside] Tyler Lubin MD [Primary Care Provider] - <Marizol Dodge DO - Last Filed: 05/18/19 07:07> Cosign ED Attending Sabraature Attestation: I was immediately available in the department for consultation. Documentation has been reviewed. I agree with assessment and plan.
--- NOTE | 2019-05-16 02:07 | ED_ITS ---
HPI - Extremity Injury (Upper) <SAMAN Pham - Last Filed: 05/16/19 02:22> General Chief Complaint: Extremity Injury, Upper Stated Complaint: left hand middle finger skin feels tight Time Seen by Provider: 05/14/19 12:59 Source: patient Mode of arrival: ambulatory Limitations: no limitations History of Present Illness HPI narrative: This is a 39-year-old male, previous smoker, presents with left 3rd finger swelling and discomfort. Patient was here and seen on 05/10/19 nondisplaced fracture on 4th metacarpal and had ulnar gutter splint applied to affected hand discharged to home with medication T3. Patient reports the 3rd finger swelling and discomfort is new today and denies any new or additional injury to affected finger after the x-ray was obtained several days ago. Pamela dailey states he has of follow-up appointment with the orthopedist and his primary care physician at the end of this month. Related Data Home Medications Medication Instructions Recorded Confirmed atorvastatin [Lipitor] 20 mg PO QPM #0 01/19/17 05/14/19 metoprolol tartrate 25 mg PO DAILY #0 10/09/17 05/14/19 albuterol sulfate [Ventolin HFA] 0 puff INH Q4HP PRN 05/10/19 05/14/19 alprazolam 0.5 mg PO TID PRN 05/10/19 05/14/19 paroxetine HCl 30 mg PO DAILY 05/10/19 05/14/19 Previous Rx's Medication Instructions Recorded acetaminophen-codeine 1 tab PO Q6H PRN #7 tab 05/10/19 [Tylenol-Codeine #3] acetaminophen-codeine 1 tab PO BID PRN #7 tab 05/14/19 [Tylenol-Codeine #3] Allergies Allergy/AdvReac Type Severity Reaction Status Date / Time amlodipine [AMLODIPINE] Allergy Unknown Verified 05/14/19 13:14 Review of Systems <SAMAN Pham - Last Filed: 05/16/19 02:22> Review of Systems ROS Unobtainable: All systems reviewed & are unremarkable except as noted in HPI and below PFSH <SAMAN Pham - Last Filed: 05/16/19 02:22> Medical History Anxiety (Acute) Hypertension (Acute) Social History marital status: unknown Smoking Status: Former smoker alcohol intake: current substance use type: marijuana Social History marital status: unknown Smoking Status: Former smoker alcohol intake: current substance use type: marijuana Exam <SAMAN Pham - Last Filed: 05/16/19 02:22> Narrative Exam Narrative: General appearance: well developed, well nourished, in no acute distress. Head: normocephalic, atraumatic, no scalp lesions, non-tender. Eye: pupil equal, round. EOMI. Nose: nares patent. Oral: mucosa moist. Neck/Thyroid: neck supple, full range of motion, no visible masses. Skin: no suspicious rashes, lesions over visible areas. Warm and dry. Heart: no clubbing, no cyanosis, no edema. Lungs: Breathing even and unlabored. No stridor. No accessory muscles used. Chest: normal shape and expansion. Abdomen: non-obese, non-distended. Neurologic: alert and oriented. Cognitive exam, ALLOPATHIC DOCTOR and PNS grossly intact on informal exam. Psych: good eye contact, normal affect. Initial Vital Signs Initial Vital Signs: Vital Signs Temperature 98.0 F 05/14/19 12:58 Pulse Rate 78 05/14/19 12:58 Respiratory Rate 18 05/14/19 12:58 Blood Pressure 149/104 H 05/14/19 12:58 Pulse Oximetry 98 05/14/19 12:58 Extrem Left upper extremity: hand Details: normal capillary refill, neuromotor exam normal (on finger 1-3), tenderness Location: of the 3rd digit, vascular exam Details: radial pulse present and normal capillary refill, abnormal ROM of finger Details: pain with active ROM Location: of the 3rd digit and pain with passive ROM Location: of the 3rd digit and swelling Location: of the 3rd digit; no abrasions and no lacerations <Marizol Dodge DO - Last Filed: 05/18/19 07:07> Initial Vital Signs Initial Vital Signs: Vital Signs Temperature 98.0 F 05/14/19 12:58 Pulse Rate 78 05/14/19 12:58 Respiratory Rate 18 05/14/19 12:58 Blood Pressure 149/104 H 05/14/19 12:58 Pulse Oximetry 98 05/14/19 12:58 [facility] - Extremity Injury (Upper) <SAMAN Pham - Last Filed: 05/16/19 02:22> Differential Diagnosis Differential diagnosis: Likely other (strained finger, finger pain) Medical Records Attestation: I reviewed the patient's medical records. [facility]DM Narrative Medical decision making narrative: The patient reports nontraumatic pain in his left 3rd finger. He was evaluated on the 05/10/19 and had an x-ray test done. At that time, x-ray shows a small ossific/calcific density along the radial aspect of the DIP joint of the middle finger which is likely related to previous injury and there was no acute findings for fracture. The Naman wrap on his splint was removed and applied less snugly today. X-ray test was deferred today's visit since there was no trauma or injury to on affected finger since last visit. Patient was able to move his fingers against resistance with some discomfort. Patient advised to elevate unaffected arm above his chest level and is resting and use a small ice pack on 3rd finger for swelling. His prescription for T3 was renewed today. Patient advised to follow with orthopedist as scheduled. Return precautions were discussed with the patient and no further questions at this time. Patient agrees with the treatment plan. Discharge Plan Departure Patient Disposition: Home Clinical Impression: Finger pain, left Fracture of hand Qualifiers: Encounter type: subsequent encounter Fracture type: closed Laterality: left Fracture healing: with routine healing Qualified Code(s): S62.92XD - Unspecified fracture of left wrist and hand, subsequent encounter for fracture with routine healing Discharge Date/Time: 05/14/19 14:04 Interventions: ED Discharge Assessment Last Done: 05/14/19 14:00 Instructions: DI for a Hand Fracture Activity Restrictions/Additional Instructions: You had been diagnosed with [nondisplaced left hand fracture on the 4th metacarpal on 05/10/19. We had placed on ulnar gutter splint during the visit. You had pain on L 3rd finger which is not covered on the splint. We deferred x- ray test at this time since you had not injured you're 3rd finger since the last x-ray test. This may caused due to malposition, tightness of the splint wrapped. You're splint Naman wrap has replaced during this visit. Please keep your splint all times and keep it clean and dry.]. What to do: *Take your medications as directed. I prescribed a few more tabs of T3 for the severe pain as you're requested. You could use [id number] Tylenol as needed and take T3 for only severe pain. T3 will cause drowsiness so please take precaution. Not drive, drink alcohol, operate heavy equipment while on the T3. Also this could cause constipation so take high-fiber diet [id number] stool softener. * Please follow up with the orthopedist next week Monday as scheduled and your primary care provider as scheduled on the . *Return to ED if you have any new, worsening, or concerning symptoms, such as [severe pain, swelling, tingling numbness to her fingertips, weakness to in her left fingers room, chest pain, breathing difficulty, any acute concerns]. Prescriptions: New acetaminophen-codeine [Tylenol-Codeine #3] 300-30 mg tablet 1 tab PO BID PRN (Reason: pain) Qty: 7 RF: 0 No Action atorvastatin [Lipitor] 20 MG tablet 20 mg PO QPM Qty: 0 RF: 0 metoprolol tartrate 25 MG tablet 25 mg PO DAILY Qty: 0 RF: 0 alprazolam 0.5 mg tablet 0.5 mg PO TID PRN (Reason: Anxiety) RF: 0 paroxetine HCl 20 mg tablet 30 mg PO DAILY RF: 0 albuterol sulfate [Ventolin HFA] 90 MCG/PUFF HFA aerosol inhaler INH Q4HP PRN (Reason: Shortness Of Breath) RF: 0 acetaminophen-codeine [Tylenol-Codeine #3] 300-30 mg tablet 1 tab PO Q6H PRN (Reason: pain) Qty: 7 RF: 0 Referrals: [facility] [Outside] Tyler Lubin MD [Primary Care Provider] - <Marizol Dodge DO - Last Filed: 05/18/19 07:07> Cosign ED Attending Sabraature Attestation: I was immediately available in the department for consultation. Documentation has been reviewed. I agree with assessment and plan.
== END 2019-05-14 14:04 | disposition home or self-care (01) ==
PROVIDERS: Emergency Provider Nurse Practitioner Family; Family Provider Family Medicine; PCP Family Medicine
DX: M79.645 Pain in left finger(s) (principal); S62.92XD Unspecified fracture of left hand, subsequent encounter for fracture with routine healing
CPT/HCPCS: 99282; 99283

== ENCOUNTER 2019-07-22 12:50 | Emergency (ER) | payer OTHER, MEDICAID, SELFPAY ==
[2019-07-22 13:04] VITALS: BP 136/91; PULSE 64; RESP 16; TEMP 36.3; O2SAT 99; BMI 163.9
--- NOTE | 2019-07-22 13:06 | DI.RAD.S_ITS ---
PROCEDURE: XR FINGER RT MIN 2V INDICATIONS: injury pain TECHNIQUE: AP hand, 2 views of the right finger(s) acquired. COMPARISON: None. FINDINGS: Bones: Distal tuft fracture of the right ring finger. Soft tissues: No suspicious soft tissue calcifications. IMPRESSION: Right ring finger distal tuft fracture. Dictated by: Prem Magallon M.D. on 07/22/2019 at 13:49 Approved by: Prem Magallon M.D. on 07/22/2019 at 13:50
--- NOTE | 2019-07-22 13:26 | ED.GENADULT ---
HPI - General Adult General Chief complaint: Extremity Injury, Upper Stated complaint: RT RING FINGER SMASHED 2XDAYS Time Seen by Provider: 07/22/19 13:19 Source: patient Mode of arrival: Ambulatory Limitations: no limitations History of Present Illness HPI narrative: 39-year-old male [id number] here for evaluation to injuries sustained to his distal over right ring finger. Patient states he was at school. He states he was putting an axle in a car when he smashed his finger. Had pain immediately afterwards. Related Data Home Medications Medication Instructions Recorded Confirmed atorvastatin [Lipitor] 20 mg PO QPM #0 01/19/17 07/22/19 metoprolol tartrate 25 mg PO DAILY #0 10/09/17 05/14/19 albuterol sulfate [Ventolin HFA] 0 puff INH Q4HP PRN 05/10/19 05/14/19 alprazolam 0.5 mg PO TID PRN 05/10/19 05/14/19 paroxetine HCl 30 mg PO DAILY 05/10/19 07/22/19 tizanidine 4 mg PO TID 07/22/19 07/22/19 valacyclovir 07/22/19 Previous Rx's Medication Instructions Recorded acetaminophen-codeine 1 tab PO Q6H PRN #7 tab 05/10/19 [Tylenol-Codeine #3] acetaminophen-codeine 1 tab PO BID PRN #7 tab 05/14/19 [Tylenol-Codeine #3] acetaminophen-codeine 1 tab PO Q4H PRN #10 tab 07/22/19 [Tylenol-Codeine #3] Allergies Allergy/AdvReac Type Severity Reaction Status Date / Time amlodipine [AMLODIPINE] Allergy Unknown Verified 07/22/19 13:04 Review of Systems Constitutional Constitutional: Denies headache(s) ENT Ears, Nose, Mouth, and Throat: Denies headache(s) Musculoskeletal Musculoskeletal: Denies tingling Comments: Right ring finger pain Integumentary/Breasts Comments: Bruising to the end of the right ring finger Neurologic Neurologic: Denies headache(s) and Denies tingling Hematologic/Lymphatic Hematologic/Lymphatic: Denies easy bleeding and Denies easy bruising Patient History Medical History Anxiety (Acute) Hypertension (Acute) Social History marital status: unknown Smoking Status: Former smoker alcohol intake: current substance use type: marijuana alcohol intake frequency: 0-2 drinks per day Substance Use Type: does not use Exam Initial Vital Signs Initial Vital Signs: Vital Signs Temperature 97.3 F L 07/22/19 13:04 Pulse Rate 64 07/22/19 13:04 Respiratory Rate 16 07/22/19 13:04 Blood Pressure 136/91 H 07/22/19 13:04 Pulse Oximetry 99 07/22/19 13:04 Cardio Pulses: radial pulses present on the right Skin Other: Slight bruising to the pad of the right ring finger and also a subungual hematoma right ring finger. Neuro General: alert and awake Extrem General: normal to inspection and capillary refill normal Psych Appearance: grossly normal and well kempt Procedures Orthopedic Splinting/Casting Injury #1: Side: right Upper Extremity Injury Location: finger Upper Extremity Immobilizer: aluminum form splint Post splinting neuro exam: intact Post splinting vascular exam: intact Placed by: Nursing Course Orders Ordered: ED Orders 07/22/19 13:06 XR finger RT min 2V Stat Vital Signs Vital signs: Vital Signs - 8 hr 07/22/19 13:04 Temperature 97.3 F L Pulse Rate 64 Respiratory Rate 16 Blood Pressure 136/91 H Pulse Oximetry 99 Medical Decision Making Imaging Data Finger x-ray: Attestation: I personally reviewed and interpreted this imaging study as follows: My impression: Tuft after fracture right ring finger. MDM Narrative Medical decision making narrative: Neurovascular intact, nondisplaced fracture the distal right ring finger. Does have a subungual hematoma that is small. Low no splint was placed. Discussed return precautions and follow-up instructions. He expressed understanding agreement plan. Discharge Plan Departure Patient Disposition: Home Clinical Impression: Fracture of finger of right hand Qualifiers: Encounter type: initial encounter Finger: ring finger Fracture type: closed Phalanx: distal Fracture alignment: nondisplaced Qualified Code(s): S62.664A - Nondisplaced fracture of distal phalanx of right ring finger, initial encounter for closed fracture Instructions: DI for Finger Fracture Activity Restrictions/Additional Instructions: The splint needs to stay on for the next several weeks. It needs to stay clean and dry. Contact your primary provider for follow-up. Prescriptions: New acetaminophen-codeine [Tylenol-Codeine #3] 300-30 mg tablet 1 tab PO Q4H PRN (Reason: pain) Qty: 10 RF: 0 No Action atorvastatin [Lipitor] 20 MG tablet 20 mg PO QPM Qty: 0 RF: 0 metoprolol tartrate 25 MG tablet 25 mg PO DAILY Qty: 0 RF: 0 tizanidine 4 mg tablet 4 mg PO TID RF: 0 valacyclovir 500 mg tablet RF: 0 alprazolam 0.5 mg tablet 0.5 mg PO TID PRN (Reason: Anxiety) RF: 0 paroxetine HCl 20 mg tablet 30 mg PO DAILY RF: 0 albuterol sulfate [Ventolin HFA] 90 MCG/PUFF HFA aerosol inhaler 0 puff INH Q4HP PRN (Reason: Shortness Of Breath) RF: 0 acetaminophen-codeine [Tylenol-Codeine #3] 300-30 mg tablet 1 tab PO Q6H PRN (Reason: pain) Qty: 7 RF: 0 acetaminophen-codeine [Tylenol-Codeine #3] 300-30 mg tablet 1 tab PO BID PRN (Reason: pain) Qty: 7 RF: 0 Referrals: Tyler Lubin MD [Primary Care Provider] -
[2019-07-22 13:30] VITALS: PULSE 72
--- NOTE | 2019-07-22 13:35 | PC.NURSE ---
cms intact. No acute distress. Requesting pain medication, provider wrote script.
== END 2019-07-22 13:40 | disposition home or self-care (01) ==
PROVIDERS: Emergency Provider Emergency Medicine; Family Provider Family Medicine; PCP Family Medicine
DX: S62.664A Nondisplaced fracture of distal phalanx of right ring finger, initial encounter for closed fracture (principal); S60.041A Contusion of right ring finger without damage to nail, initial encounter; W23.1XXA Caught, crushed, jammed, or pinched between stationary objects, initial encounter
CPT/HCPCS: 73140; 99282; 99283

== ENCOUNTER 2019-11-08 15:26 | Emergency (ER) | payer OTHER, MEDICAID, SELFPAY ==
--- NOTE | 2019-11-08 15:36 | ED.SYNCOPE ---
HPI - Syncope General Chief Complaint: Syncope Stated Complaint: Blacking Out and Hit Head Time Seen by Provider: 11/08/19 15:32 History of Present Illness HPI narrative: CC: Head injury with a headache after passing out. HPI: The patient is a 39-year-old male who is on 500 mg of Antabuse per day. He states that periodically he does not take the Antivert be use and at that time he has been drinking alcohol. He states that he has been on the Antabuse for about 2 years. He states that he took Antabuse 2 days ago and last night had some red wine. Afterwards he became intensely nauseous bent over and became dizzy and lightheaded when he bent over passed out fell forward striking his head on the counter. This has happened twice. He sustained abrasions and very superficial lacerations to his central scalp. He has an abrasion over his left shoulder. He has had a persistent headache that is throbbing both anteriorly and posteriorly. He has anisocoria with his right pupil being larger than the left but both reacts. He has had this is entire life. He denies a history of diabetes mellitus. He smokes cigarettes. He does not have any numbness tingling anesthesia as paresis or paralysis. He has had no loss of vision double vision. He has had no chest pain cough shortness of breath difficulty in breathing palpitations. He has had no abdominal pain diarrhea. He has had no urinary symptoms. Related Data Home Medications Medication Instructions Recorded Confirmed atorvastatin [Lipitor] 20 mg PO QPM #0 01/19/17 11/08/19 metoprolol tartrate 25 mg PO DAILY #0 10/09/17 11/08/19 albuterol sulfate [Ventolin HFA] 0 puff INH Q4HP PRN 05/10/19 11/08/19 paroxetine HCl 30 mg PO DAILY 05/10/19 11/08/19 valacyclovir 500 mg PO DIRECTED PRN 07/22/19 11/08/19 disulfiram [Antabuse] 500 mg PO DAILY 11/08/19 11/08/19 methylphenidate HCl 10 mg PO BID 11/08/19 11/08/19 Previous Rx's Medication Instructions Recorded naproxen [Naprosyn] 500 mg PO BID PRN #20 tab 11/08/19 ondansetron HCl [Zofran] 4 mg PO Q6H PRN #10 tab 11/08/19 Allergies Allergy/AdvReac Type Severity Reaction Status Date / Time amlodipine [AMLODIPINE] Allergy Unknown Verified 11/08/19 15:50 Review of Systems Review of Systems Narrative: His review of systems were all negative except for those mentioned in the history of present illness. Patient History Medical History Anxiety (Acute) Hypertension (Acute) Social History marital status: unknown Smoking Status: Former smoker alcohol intake: current substance use type: marijuana Smoking Status: Former smoker alcohol intake frequency: 0-2 drinks per day Substance Use Type: does not use Exam Narrative Exam Narrative: PHYSICAL EXAM: CONSTITUTIONAL: Awake, Alert, Oriented, Coherent, Cooperative in NAD. Does not appear toxic or ill. HEAD: Reveals 2 abrasions and a superficial laceration over the vertex of his scalp. EENT: The pupils are on equal with the right being slightly larger than the left but both are reactive. No drainage from the ears, Tympanic membranes intact bilaterally, without hemotympanum. clear EAC No epistaxis or nasal drainage Oral mucosa is moist and pink, posterior pharynx is without erythema or exudate. NECK: Supple, no obvious JVD, Trachea is midline without stridor, no palpable LN or masses. SPINE: No gross deformity, no palpable tenderness of the cervical, thoracic, lumbar or sacral spine. No CVA tenderness. The patient's back is mildly clammy. THORAX: No deformity, retractions, chest wall tenderness, subcutaneous air or crepitice. LUNGS: Clear with symmetrical breath sounds without respiratory distress HEART: Normal heart tones, regular rhythm and rate without murmur. ABDOMEN: Soft, non-tender, normal bowel sounds without guarding, rebound, rigidity or palpable mass . EXTREMITIES: No edema, cyanosis, deformity or tenderness. SKIN: No rash, bruising, petechiae or purpura. NEURO: Awake, alert, oriented, conversive, cranial nerves II-XII are symmetrical and normal, moves all 4 extremities and is ambulatory Initial Vital Signs Initial Vital Signs: Vital Signs Temperature 98.0 F 11/08/19 15:38 Pulse Rate 74 11/08/19 15:38 Respiratory Rate 18 11/08/19 15:38 Blood Pressure 145/87 H 11/08/19 15:38 Pulse Oximetry 100 11/08/19 15:38 Course Course Course Narrative: 1610 clinically I believe that the patient had a vasovagal response secondary to his alcohol interacting with his Antabuse causing nausea. This was amplified when he bent forward passed out and fell forward striking his head. He states that this happened 2 or 3 times. He now has a persistent bifrontal headache and occipital headache. A CT scan will be obtained to rule out any intracranial pathology or hemorrhage. The patient has abnormal liver functions. His troponin is within normal limits. Magnesium is 2.9 1540: Patient's CT scan of his head that was negative for an acute stroke, hemorrhage, or mass effect. There is no evidence of significant intracranial pathology of acute trauma. Orders Ordered: Discontinued Medications Diphenhydramine HCl (Benadryl) 25 mg IV NOW ONE Stop: 11/08/19 16:16 Last Admin: 11/08/19 16:20 Dose: 25 mg Documented by: JEROME Ketorolac Tromethamine (Toradol) 30 mg IV NOW ONE Stop: 11/08/19 16:16 Last Admin: 11/08/19 16:19 Dose: 30 mg Documented by: SCANRAD Metoclopramide HCl (Reglan) 10 mg IV NOW ONE Stop: 11/08/19 16:16 Last Admin: 11/08/19 16:19 Dose: 10 mg Documented by: SCANAPO Vital Signs Vital signs: Vital Signs - 8 hr 11/08/19 15:38 11/08/19 15:46 11/08/19 16:03 Temperature 98.0 F 98.0 F Pulse Rate 74 77 Pulse Rate [Orthostatic Lying] 75 Pulse Rate [Orthostatic Sitting] 81 Pulse Rate [Orthostatic Standing] 77 Respiratory Rate 18 18 Blood Pressure 145/87 H Blood Pressure [Left Arm] 145/87 H Blood Pressure [Orthostatic Lying] 133/90 Blood Pressure [Orthostatic Sitting] 141/91 H Blood Pressure [Orthostatic Standing] 160/105 H Pulse Oximetry 100 100 11/08/19 17:00 Temperature Pulse Rate 62 Pulse Rate [Orthostatic Lying] Pulse Rate [Orthostatic Sitting] Pulse Rate [Orthostatic Standing] Respiratory Rate 19 Blood Pressure Blood Pressure [Left Arm] 118/77 Blood Pressure [Orthostatic Lying] Blood Pressure [Orthostatic Sitting] Blood Pressure [Orthostatic Standing] Pulse Oximetry 96 MDM - Syncope Lab Data Result diagrams: 11/08/19 15:42 11/08/19 15:42 Labs: Lab Results 11/08/19 11/08/19 11/08/19 Range/Units 15:42 15:42 15:42 WBC 7.9 (4.5-11.0) X10^3/uL RBC 5.44 (4.5-5.9) X10^6/uL Hgb 16.6 (13.5-17.5) g/dL Hct 47.8 (41-53) % MCV 87.7 (80-100) fL MCH 30.4 (26-34) PG MCHC 34.7 (30-36) % RDW 12.9 (11.6-14.8) % Plt Count 312 (150-400) X10^3/uL Neut % (Auto) 65.3 (50-75) % Lymph % (Auto) 21.1 L (25-40) % [place] % (Auto) 9.3 (3-14) % Eos % (Auto) 3.0 (2-4) % Baso % (Auto) 1.3 (0-2) % Neut # (Auto) 5200 (3923-9548) /uL Lymph # (Auto) 1700 (9993-8323) /uL [place] # (Auto) 700 (0-900) /uL Eos # (Auto) 200 (0-450) /uL Baso # (Auto) 100 (0-100) /uL Sodium 142 (137-145) mmol/L Potassium 4.2 (3.4-5.1) mmol/L Chloride 106 (98-107) mmol/L Carbon Dioxide 29 (22-32) mmol/L BUN 18 (9-20) mg/dL Creatinine 0.90 (0.66-1.25) mg/dL Estimated GFR > 60.0 (>60) mL/min BUN/Creatinine Ratio 20.0 (6-22) Glucose 86 (70-100) mg/dL Calcium 9.6 (8.4-10.2) mg/dL Magnesium 2.9 H (1.6-2.3) mg/dL Total Bilirubin 0.5 (0.2-1.3) mg/dL AST 45 (17-59) IU/L ALT 71 H (<50) IU/L Alkaline Phosphatase 135 H (38-126) U/L Total Creatine Kinase 171 H (55-170) U/L Troponin I < 0.012 (0.01-0.034) ng/mL Total Protein 8.7 H (6.3-8.2) g/dL Albumin 4.7 (3.5-5.0) g/dL Globulin 4.0 (1.7-4.1) g/dL Albumin/Globulin Ratio 1.2 (1.0-2.8) Ethyl Alcohol < 10 ( - 10) mg/dL ECG Data Attestation: I personally reviewed and interpreted this ECG as follows: Interpretation: The patient's EKG obtained at 15:3 6:35 a.m. on November 08 reveals a normal sinus rhythm with a ventricular rate of 74. Intervals are normal QT and QTC are within normal limits left axis deviation. The patient has T-wave inversions in lead III and V1. There are no other T-wave inversions or abnormal ST segment changes. The patient has a ST segment depression in lead III. Her his EKG otherwise is within normal limits. Discharge Plan Departure Patient Disposition: Home Clinical Impression: Syncope, vasovagal Closed head injury Qualifiers: Encounter type: initial encounter Qualified Code(s): S09.90XA - Unspecified injury of head, initial encounter Acute post-traumatic headache Qualifiers: Intractability: not intractable Qualified Code(s): G44.319 - Acute post-traumatic headache, not intractable Discharge Date/Time: 11/08/19 18:07 Instructions: DI for Concussion, Fainting, DI for Closed Head Injury Activity Restrictions/Additional Instructions: Do not drink alcohol with in 48 hours of taking or failing to take Antabuse. For your headache take Naprosyn 500 mg b.i.d.. Follow-up with your primary care physician. Take Zofran for your nausea and vomiting. Prescriptions: New naproxen [Naprosyn] 500 mg tablet 500 mg PO BID PRN (Reason: pain) Qty: 20 RF: 0 ondansetron HCl [Zofran] 4 mg tablet 4 mg PO Q6H PRN (Reason: nausea and vomiting) Qty: 10 RF: 0 No Action atorvastatin [Lipitor] 20 MG tablet 20 mg PO QPM Qty: 0 RF: 0 metoprolol tartrate 25 MG tablet 25 mg PO DAILY Qty: 0 RF: 0 valacyclovir 500 mg tablet 500 mg PO DIRECTED PRN (Reason: Cold Sores) RF: 0 disulfiram [Antabuse] 500 mg Tablet 500 mg PO DAILY RF: 0 methylphenidate HCl 10 mg tablet extended release 10 mg PO BID RF: 0 paroxetine HCl 20 mg tablet 30 mg PO DAILY RF: 0 albuterol sulfate [Ventolin HFA] 90 MCG/PUFF HFA aerosol inhaler 0 puff INH Q4HP PRN (Reason: Shortness Of Breath) RF: 0 Referrals: Tyler Lubin MD [Primary Care Provider] -
[2019-11-08 15:38] VITALS: BP 145/87; PULSE 74; RESP 18; TEMP 36.7; O2SAT 100
[2019-11-08 15:46] VITALS: BP 145/87; PULSE 77; RESP 18; TEMP 36.7; O2SAT 100
[2019-11-08 15:50] LABS: Add Manual Diff / Slide Review NO; Basophils Absolute Auto 100 /uL (0-100); Basophils Percent Auto 1.3 % (0-2); Eosinophils Absolute Auto 200 /uL (0-450); Hematocrit 47.8 % (41-53); Hemoglobin 16.6 g/dL (13.5-17.5); Lymphocytes Absolute Auto 1700 /uL (1100-4500); Lymphocytes Percent Auto 21.1 % (25-40); Mean Corpuscular HGB Conc 34.7 % (30-36); Mean Corpuscular Hemoglobin 30.4 PG (26-34); Mean Corpuscular Volume 87.7 fL (80-100); Monocytes Absolute Auto 700 /uL (0-900); Monocytes Percent Auto 9.3 % (3-14); Neutrophils Absolute Auto 5200 /uL (1500-7000); Neutrophils Percent Auto 65.3 % (50-75); Platelet Count 312 X10^3/uL (150-400); Red Blood Cell Count 5.44 X10^6/uL (4.5-5.9); Red Cell Distribution Width 12.9 % (11.6-14.8); White Blood Cell Count 7.9 X10^3/uL (4.5-11.0)
--- NOTE | 2019-11-08 15:51 | DI.CT.S_ITS ---
PROCEDURE: CT HEAD/BRAIN WO CON INDICATIONS: head injury with persistent headache. TECHNIQUE: Noncontrast 4.5 mm thick angled axial sections acquired from the foramen magnum to the vertex, with coronal and sagittal reformats. For radiation dose reduction, the following was used: automated exposure control, adjustment of mA and/or kV according to patient size. COMPARISON: [facility], CT, HEAD WITHOUT CONTRAST, 01/01/2018, 18:42. FINDINGS: Image quality: Excellent. CSF spaces: Basal cisterns are patent. No extra-axial fluid collections. Ventricles are normal in size and shape. Brain: No midline shift. No intracranial masses or hemorrhage. [place]-white matter interface is normal. Skull and face: Calvarium and visualized facial bones are intact, without suspicious lesions. Sinuses: Visualized sinuses and mastoids are clear. IMPRESSION: Negative for acute stroke, hemorrhage, or mass. No evidence of significant intracranial sequelae of acute trauma. Dictated by: Kole Waddell M.D. on 11/08/2019 at 16:13 Approved by: Kole Waddell M.D. on 11/08/2019 at 16:15
--- NOTE | 2019-11-08 15:53 | PC.NURSE ---
pt c/o headache. pt states he was drinking wine last santos, only had 2 glasses of wine, when he began to feel nauseated, bent over when he stood up he blacked out. hitting head on counter. states then got up and had a second episode of blacking out. pt reports he did take his antibuse 2 days ago.
[2019-11-08 16:02] LABS: Alanine Aminotransferase 71 IU/L (<50); Albumin 4.7 g/dL (3.5-5.0); Albumin Globulin Ratio 1.2 (1.0-2.8); Alkaline Phosphatase 135 U/L (38-126); Aspartate Aminotransferase 45 IU/L (17-59); Bilirubin Total 0.5 mg/dL (0.2-1.3); Blood Urea Nitrogen 18 mg/dL (9-20); Calcium 9.6 mg/dL (8.4-10.2); Carbon Dioxide 29 mmol/L (22-32); Chloride 106 mmol/L (98-107); Creatine Kinase 171 U/L (55-170); Estimated Glomerular Filt Rate > 60.0 mL/min (>60); Glucose 86 mg/dL (70-100); Potassium 4.2 mmol/L (3.4-5.1); Sodium 142 mmol/L (137-145); Total Protein 8.7 g/dL (6.3-8.2)
[2019-11-08 16:03] VITALS: BP 133/90; BP 141/91; BP 160/105; PULSE 75; PULSE 77; PULSE 81
[2019-11-08 16:03] LABS: Ethanol (ETOH) < 10 mg/dL; Magnesium 2.9 mg/dL (1.6-2.3)
[2019-11-08 16:14] LABS: Troponin I < 0.012 ng/mL (0.01-0.034)
[2019-11-08 16:18] LABS: HEMOLYSIS 28 (0-50)
[2019-11-08] MEDS: METOCLOPRAMIDE 10 MG/2 ML INJ IV (16:19)
[2019-11-08] MEDS: KETOROLAC 60 MG/2 ML VIAL 30 MG IV (16:19)
[2019-11-08] MEDS: diphenhydrAMINE 50 MG/ML VIAL 25 MG IV (16:20)
[2019-11-08 17:00] VITALS: BP 118/77; PULSE 62; RESP 19; O2SAT 96
[2019-11-08 18:01] VITALS: BP 120/60; PULSE 61; RESP 16; O2SAT 99
== END 2019-11-08 18:07 | disposition home or self-care (01) ==
PROVIDERS: Emergency Provider Emergency Medicine; Family Provider Family Medicine; PCP Family Medicine
DX: S09.90XA Unspecified injury of head, initial encounter (principal); G44.319 Acute post-traumatic headache, not intractable; W19.XXXA Unspecified fall, initial encounter
CPT/HCPCS: 36415; 70450; 80053; 80320; 82550; 83735; 84484; 85025; 93005; 96374; 96375; 99284; 99285; J1200; J1885; J2765

== ENCOUNTER 2019-11-21 09:45 | Emergency (ER) | payer OTHER, MEDICAID, SELFPAY ==
[2019-11-21 09:51] VITALS: BP 140/83; PULSE 82; RESP 16; TEMP 36.5; O2SAT 100; BMI 28.1
== END 2019-11-21 12:10 | disposition left against medical advice (07) ==
PROVIDERS: Emergency Provider Emergency Medicine; Family Provider Family Medicine; PCP Family Medicine
CPT/HCPCS: 99281

== ENCOUNTER 2019-11-26 17:43 | Emergency (ER) | payer OTHER, MEDICAID, SELFPAY ==
[2019-11-26 17:57] VITALS: BP 160/100; PULSE 100; RESP 13; TEMP 36.1; O2SAT 99
--- NOTE | 2019-11-26 17:58 | DI.RAD.S_ITS ---
PROCEDURE: XR ELBOW LT MIN 3V INDICATIONS: fall/ injury TECHNIQUE: 4 views of the elbow were acquired. COMPARISON: None. FINDINGS: Bones: No fractures or dislocations. No suspicious bony lesions. Soft tissues: No elbow joint effusion. No suspicious soft tissue calcifications. IMPRESSION: Left elbow without acute radiographic abnormalities. If there is persistent clinical concern for occult fracture given adequate mechanism of injury, consider repeat imaging in 10-14 days. Dictated by: Jose Brown M.D. on 11/26/2019 at 18:42 Approved by: Jose Brown M.D. on 11/26/2019 at 18:43
--- NOTE | 2019-11-26 18:14 | ED_ITS ---
HPI - Extremity Injury (Upper) General Chief Complaint: Extremity Injury, Upper Stated Complaint: left elbow injury Time Seen by Provider: 11/26/19 18:14 Source: patient Mode of arrival: Ambulatory Limitations: no limitations History of Present Illness HPI narrative: Prior to arrival here, the patient walked out of a local [employer], he slipped on a wet surface, falling onto his left lateral elbow. There was no head, neck or spine injury. He had no LOC. He has no chest discomfort. Extremity injuries limited to the left lateral elbow. There is swelling and ecchymosis to the left lateral. He has pain with motion of the elbow. He has no numbness or weakness in the left forearm. He is right-hand dominant. Related Data Home Medications Medication Instructions Recorded Confirmed atorvastatin [Lipitor] 20 mg PO QPM #0 01/19/17 11/26/19 metoprolol tartrate 25 mg PO DAILY #0 10/09/17 11/26/19 albuterol sulfate [Ventolin HFA] 0 puff INH Q4HP PRN 05/10/19 11/21/19 paroxetine HCl 30 mg PO DAILY 05/10/19 11/26/19 valacyclovir 500 mg PO DIRECTED PRN 07/22/19 11/21/19 disulfiram [Antabuse] 500 mg PO DAILY 11/08/19 11/08/19 methylphenidate HCl 10 mg PO BID 11/08/19 11/26/19 alprazolam 1.5 mg PO Q8H PRN 11/21/19 Previous Rx's Medication Instructions Recorded naproxen [Naprosyn] 500 mg PO BID PRN #20 tab 11/08/19 ondansetron HCl [Zofran] 4 mg PO Q6H PRN #10 tab 11/08/19 hydrocodone-acetaminophen [[place]] 1 tab PO Q6H PRN #10 tab 11/26/19 Allergies Allergy/AdvReac Type Severity Reaction Status Date / Time amlodipine [AMLODIPINE] Allergy Unknown Verified 11/21/19 09:51 Review of Systems Review of Systems ROS Unobtainable: All systems reviewed & are unremarkable except as noted in HPI and below Constitutional Constitutional: Denies headache(s) Comments: No recent illness other injuries ENT Ears, Nose, Mouth, and Throat: Denies headache(s) Comments: No head injury or neck injury Cardiovascular Cardiovascular: Denies chest pain and Denies dyspnea Respiratory Respiratory: Denies dyspnea Musculoskeletal Comments: Left elbow injury is noted HPI Integumentary/Breasts Comments: Left elbow ecchymosis, no other skin injuries. Neurologic Neurologic: Denies confusion and Denies headache(s) Psychiatric Psychiatric: Denies confusion Patient History Medical History Anxiety (Acute) Hypertension (Acute) Surgical History (Updated 11/26/19 @ 19:51 by Edgar Rangel MD) No significant past surgical history (Acute) Social History marital status: unknown Smoking Status: Former smoker alcohol intake: current substance use type: marijuana Smoking Status: Former smoker alcohol intake frequency: a few times a month Substance Use Type: does not use Exam Initial Vital Signs Initial Vital Signs: Vital Signs Temperature 97 F L 11/26/19 17:57 Pulse Rate 100 H 11/26/19 17:57 Respiratory Rate 13 11/26/19 17:57 Blood Pressure 160/100 H 11/26/19 17:57 Pulse Oximetry 99 11/26/19 17:57 Const General: cooperative and well developed Nutritional Appearance: well nourished [facility] Head: normocephalic and atraumatic Neck Neck: full ROM and No tender Back/Spine/Pelvis Back: normal to inspection and No back tenderness Skin Other: Normal other than left elbow contusion. Neuro Other: Normal motor and sensory exam of the left upper extremity. Extrem Other: Left shoulder is nontender. Left upper arm is nontender. Large hematoma to the left lateral elbow, with restriction of full extension elbow. No palpable bony defects. Pronation/supination is normal. The left forearm is nontender. The left radial pulse is normal. The left wrist and hand are atraumatic. Course Course Course Narrative: The left elbow x-ray was normal, the patient is placed in a sling prior to discharge by his nurse. The left arm is neurovascularly intact. He was discharged with ibuprofen for pain, [place] for added pain control. He was given a work note to not use his left arm for the next 2 days. I advised he can wean from the sling as tolerated. I advised follow-up with ortho, Dr. Ohara has been consulted. Orders Ordered: ED Orders 11/26/19 17:58 XR elbow LT min 3V Stat Discontinued Medications Hydrocodone Bitart/Acetaminophen (Vicodin 5/325 Prepack) 1 bottle MISC SEEINSTR ONE Stop: 11/26/19 19:14 Last Admin: 11/26/19 19:20 Dose: Not Given Documented by: ELISEONER Ketorolac Tromethamine (Toradol) 60 mg IM NOW ONE Stop: 11/26/19 18:19 Last Admin: 11/26/19 18:29 Dose: 60 mg Documented by: BTONER Vital Signs Vital signs: Vital Signs - 8 hr 11/26/19 17:57 Temperature 97 F L Pulse Rate 100 H Respiratory Rate 13 Blood Pressure 160/100 H Pulse Oximetry 99 MDM - Extremity Injury (Upper) Imaging Data Left elbow x-ray:: Radiologist's Impression: Normal. Discharge Plan Departure Patient Disposition: Home Clinical Impression: Traumatic hematoma of left elbow Qualifiers: Encounter type: initial encounter Qualified Code(s): S50.02XA - Contusion of left elbow, initial encounter Discharge Date/Time: 11/26/19 19:20 Instructions: DI for Elbow Pain Activity Restrictions/Additional Instructions: Advil 3 tablets every 6 hours as needed for pain. [place] every 4 hours as needed for added pain control. Apply ice to the left elbow frequently for the next [address] Ohara, orthopedics, for follow-up exam, contact information is provided. Return to the ER as needed. Prescriptions: New hydrocodone-acetaminophen [[place]] 5-325 mg tablet 1 tab PO Q6H PRN (Reason: pain) Qty: 10 RF: 0 No Action atorvastatin [Lipitor] 20 MG tablet 20 mg PO QPM Qty: 0 RF: 0 metoprolol tartrate 25 MG tablet 25 mg PO DAILY Qty: 0 RF: 0 valacyclovir 500 mg tablet 500 mg PO DIRECTED PRN (Reason: Cold Sores) RF: 0 disulfiram [Antabuse] 500 mg Tablet 500 mg PO DAILY RF: 0 methylphenidate HCl 10 mg tablet extended release 10 mg PO BID RF: 0 naproxen [Naprosyn] 500 mg tablet 500 mg PO BID PRN (Reason: pain) Qty: 20 RF: 0 ondansetron HCl [Zofran] 4 mg tablet 4 mg PO Q6H PRN (Reason: nausea and vomiting) Qty: 10 RF: 0 alprazolam 0.5 mg tablet 1.5 mg PO Q8H PRN (Reason: Anxiety) RF: 0 paroxetine HCl 20 mg tablet 30 mg PO DAILY RF: 0 albuterol sulfate [Ventolin HFA] 90 MCG/PUFF HFA aerosol inhaler 0 puff INH Q4HP PRN (Reason: Shortness Of Breath) RF: 0 Referrals: Roberta Ohara MD [Physician] - Tyler Lubin MD [Primary Care Provider] - Stand Alone Forms: Work Release Note
[2019-11-26] MEDS: KETOROLAC 60 MG/2 ML VIAL IM (18:29)
--- NOTE | 2019-11-26 19:21 | PC.NURSE ---
dr. de la cruz verbal order to cancel hydrocodone prepack.
== END 2019-11-26 19:20 | disposition home or self-care (01) ==
PROVIDERS: Emergency Provider Emergency Medicine; Family Provider Family Medicine; PCP Family Medicine
DX: S50.02XA Contusion of left elbow, initial encounter (principal); W01.0XXA Fall on same level from slipping, tripping and stumbling without subsequent striking against object, initial encounter
CPT/HCPCS: 73080; 96372; 99283; 99284; J1885

== ENCOUNTER 2019-11-30 20:59 | Emergency (ER) | payer OTHER, MEDICAID, SELFPAY ==
--- NOTE | 2019-11-30 21:20 | ED_ITS ---
HPI - Extremity Injury (Upper) General Chief Complaint: Extremity Injury, Upper Stated Complaint: fall on the , left elbow not better Time Seen by Provider: 11/30/19 21:01 Source: patient Mode of arrival: Ambulatory Limitations: no limitations History of Present Illness HPI narrative: 39-year-old male former smoker with history of hyperlipidemia returns for evaluation of a left elbow injury suffered while working November 25. He slipped and landed on his left elbow and developed significant swelling and pain and was seen here. X-rays were negative and patient was given a sling and encouraged to take Tylenol and Motrin for pain. Over the past week or so he has developed some increased swelling and now is having pain in the absence of any new injury. He denies any numbness, tingling or weakness. He states the pain is worse with motion and improves with rest. Additionally notes that he is starting to have some pain in his right knee and thinks he probably to he did with the same fall. MD complaint: injury to: left and elbow Other Extremity Injury: Left: elbow Other injuries: none Handedness: right Severity: moderate Relieving factors: rest Exacerbating factors: movement of extremity Context: fall and direct blow Related Data Home Medications Medication Instructions Recorded Confirmed atorvastatin [Lipitor] 20 mg PO QPM #0 01/19/17 11/26/19 metoprolol tartrate 25 mg PO DAILY #0 10/09/17 11/26/19 albuterol sulfate [Ventolin HFA] 0 puff INH Q4HP PRN 05/10/19 11/21/19 paroxetine HCl 30 mg PO DAILY 05/10/19 11/26/19 valacyclovir 500 mg PO DIRECTED PRN 07/22/19 11/21/19 disulfiram [Antabuse] 500 mg PO DAILY 11/08/19 11/08/19 methylphenidate HCl 10 mg PO BID 11/08/19 11/26/19 alprazolam 1.5 mg PO Q8H PRN 11/21/19 Previous Rx's Medication Instructions Recorded naproxen [Naprosyn] 500 mg PO BID PRN #20 tab 11/08/19 ondansetron HCl [Zofran] 4 mg PO Q6H PRN #10 tab 11/08/19 hydrocodone-acetaminophen [[place]] 1 tab PO Q6H PRN #10 tab 11/26/19 Allergies Allergy/AdvReac Type Severity Reaction Status Date / Time amlodipine [AMLODIPINE] Allergy Unknown Verified 11/21/19 09:51 Review of Systems Constitutional Constitutional: Denies chills, Denies fatigue, Denies fever(s), Denies frequent falls, Denies lethargy and Denies weakness Eyes Eyes: Denies change in vision, Denies eye discharge, Denies irritation and Denies loss of vision ENT Ears, Nose, Mouth, and Throat: Denies change in voice, Denies dizziness, Denies neck pain, Denies sore throat and Denies throat swelling Cardiovascular Cardiovascular: Denies chest pain, Denies irregular heart rhythm, Denies lightheadedness, Denies palpitations, Denies dyspnea, Denies dyspnea on exertion and Denies orthopnea Respiratory Respiratory: Denies cough, Denies dyspnea, Denies dyspnea on exertion and Denies wheezing Gastrointestinal Gastrointestinal: Denies abdominal pain, Denies change in bowel habits, Denies diarrhea, Denies nausea and Denies vomiting Genitourinary Genitourinary: Denies hematuria, Denies flank pain, Denies urinary incontinence and Denies urinary urgency Musculoskeletal Musculoskeletal: Denies back pain, Reports joint swelling, Reports limited range of motion, Denies muscle weakness, Denies neck pain, Denies numbness and Denies tingling Integumentary/Breasts Skin/Breast: Denies pruritus, Denies erythema, Denies rash and Denies wounds Neurologic Neurologic: Denies behavioral changes, Denies confusion, Denies dizziness, Denies frequent falls, Denies loss of vision, Denies numbness, Denies tingling and Denies weakness Psychiatric Psychiatric: Denies anxiety, Denies behavioral changes, Denies confusion, Denies depression, Denies homicidal ideation and Denies suicidal ideation Endocrine Endocrine: Denies fatigue, Denies flushing and Denies palpitations Hematologic/Lymphatic Hematologic/Lymphatic: Denies easy bruising Allergic/Immunologic Allergic/Immunologic: Denies urticaria, Denies throat swelling and Denies wheezing Patient History Medical History Anxiety (Acute) Hypertension (Acute) Surgical History No significant past surgical history (Acute) Social History (Reviewed 12/01/19 @ 07:31 by SURESH Larry marital status: unknown Smoking Status: Former smoker alcohol intake: current substance use type: marijuana Smoking Status: Former smoker alcohol intake frequency: a few times a month Substance Use Type: does not use Exam Narrative Exam Narrative: GEN: AOx3 and in mild distress EYES: Pupils are equal, round, and reactive to light and accommodation. Extraoccular muscles are intact bilaterally. There is no subconjunctival hemorrhage or exudate. CHEST: Lungs are clear to auscultation bilaterally and free of wheezes, rales, or rhonchi. Heart rate is regular rhythm, there are no murmurs, clicks, rubs, or gallops. There is no chest wall tenderness. ABD: Abdomen is soft and nontender. There is no guarding or rebound. Bowel sounds are normal in all 4 quadrants. There is no mass or organomegaly. EXT: Decreased range of motion of left elbow secondary to pain. There is notable swelling with some aging bruising noted by it is yellowish tint. This is closed and neurovascularly intact. Right knee has full range of motion with no effusion, redness, warmth, ligamentous instability or joint line tenderness. SKIN: Warm, pink, and dry. No erythema or rash Initial Vital Signs Initial Vital Signs: Vital Signs Temperature 98.5 F 11/30/19 21:25 Pulse Rate 89 11/30/19 21:25 Respiratory Rate 15 11/30/19 21:25 Blood Pressure 135/90 11/30/19 21:25 Pulse Oximetry 98 11/30/19 21:25 Course Orders Ordered: ED Orders 11/30/19 23:48 CT UE LT wo con Stat Vital Signs Vital signs: Vital Signs - 8 hr 12/01/19 01:15 Pulse Rate 77 Respiratory Rate 14 Blood Pressure 128/88 Pulse Oximetry 99 MDM - Extremity Injury (Upper) Imaging Data CT Elbow: Radiologist's Impression: No fracture Discharge Plan Departure Patient Disposition: Home Clinical Impression: Acute pain of right knee Traumatic hematoma of left elbow Qualifiers: Encounter type: initial encounter Qualified Code(s): S50.02XA - Contusion of left elbow, initial encounter Discharge Date/Time: 12/01/19 01:17 Instructions: DI for Hematoma (Bruise) Activity Restrictions/Additional Instructions: *You have been diagnosed with [hematoma of left elbow, right knee pain] *What to do: *Take medications as directed *Follow up with your primary care provider in 2-3 days, call for an appointment. Let them know you were seen in the Emergency Department and that we ask that you be seen in follow up *Return to ER if you should have any new, worsening or concerning symptoms Prescriptions: No Action atorvastatin [Lipitor] 20 MG tablet 20 mg PO QPM Qty: 0 RF: 0 metoprolol tartrate 25 MG tablet 25 mg PO DAILY Qty: 0 RF: 0 valacyclovir 500 mg tablet 500 mg PO DIRECTED PRN (Reason: Cold Sores) RF: 0 disulfiram [Antabuse] 500 mg Tablet 500 mg PO DAILY RF: 0 methylphenidate HCl 10 mg tablet extended release 10 mg PO BID RF: 0 naproxen [Naprosyn] 500 mg tablet 500 mg PO BID PRN (Reason: pain) Qty: 20 RF: 0 ondansetron HCl [Zofran] 4 mg tablet 4 mg PO Q6H PRN (Reason: nausea and vomiting) Qty: 10 RF: 0 alprazolam 0.5 mg tablet 1.5 mg PO Q8H PRN (Reason: Anxiety) RF: 0 hydrocodone-acetaminophen [[place]] 5-325 mg tablet 1 tab PO Q6H PRN (Reason: pain) Qty: 10 RF: 0 paroxetine HCl 20 mg tablet 30 mg PO DAILY RF: 0 albuterol sulfate [Ventolin HFA] 90 MCG/PUFF HFA aerosol inhaler 0 puff INH Q4HP PRN (Reason: Shortness Of Breath) RF: 0 Referrals: Tyler Lubin MD [Primary Care Provider] - Stand Alone Forms: School Release Note
[2019-11-30 21:25] VITALS: BP 135/90; PULSE 89; RESP 15; TEMP 36.9; O2SAT 98; BMI 27.3
--- NOTE | 2019-11-30 23:48 | DI.CT.S_ITS ---
PROCEDURE: CT UE LT WO CON INDICATIONS: severe pain, swelling, trauma, negative Xrays TECHNIQUE: Noncontrast 1-1.5 mm axial sections were acquired through the elbow joint, with coronal and sagittal reformats. COMPARISON: None. FINDINGS: Image quality: Excellent. Bones: No acute fracture dislocation. No suspicious bony abnormalities. Soft tissues: Fat stranding, soft tissue swelling, and a small subcutaneous hematoma overlies the elbow joint. IMPRESSION: 1. No acute fracture or dislocation. 2. Fat stranding and small soft tissue hematoma. These findings are concordant with the overnight interpretation. Dictated by: Leslie Nuñez M.D. on 12/01/2019 at 7:38 Approved by: Leslie Nuñez M.D. on 12/01/2019 at 7:41
[2019-12-01 01:15] VITALS: BP 128/88; PULSE 77; RESP 14; O2SAT 99
== END 2019-12-01 01:17 | disposition home or self-care (01) ==
PROVIDERS: Emergency Provider Emergency Medicine; Family Provider Family Medicine; PCP Family Medicine
DX: M25.561 Pain in right knee (principal); S50.02XA Contusion of left elbow, initial encounter; W19.XXXA Unspecified fall, initial encounter
CPT/HCPCS: 73200; 99283; 99284

== ENCOUNTER 2020-04-05 09:56 | Emergency (ER) | payer OTHER, MEDICAID, SELFPAY ==
[2020-04-05] VITALS (7 sets, daily range): BP systolic 135–156; BP diastolic 89–102; PULSE 61–82; RESP 18; O2SAT 96–98; BMI 27.3
--- NOTE | 2020-04-05 11:12 | DI.RAD.S_ITS ---
PROCEDURE: XR CHEST 1V INDICATIONS: R arm tingling TECHNIQUE: One view of the chest was acquired. COMPARISON: [facility], , CHEST 1 VIEW, 10/09/2017, 21:57. FINDINGS: Surgical changes and devices: None. Lungs and pleura: Lungs are clear. No pleural effusions or pneumothorax. Mediastinum: Mediastinal contours appear normal. Heart size is normal. Bones and chest wall: No suspicious bony lesions. Overlying soft tissues appear unremarkable. IMPRESSION: Negative chest. No acute cardiopulmonary process is evident. Dictated by: Roni Richardson M.D. on 04/05/2020 at 10:55 Approved by: Roni Richardson M.D. on 04/05/2020 at 10:56
--- NOTE | 2020-04-05 11:14 | ED.EXTPRO ---
HPI - Extremity Problem <Patria ArmendarizSAMAN warren - Last Filed: 04/05/20 13:07> General Chief complaint: Extremity Problem,Nontraumatic Stated complaint: Tingling sensation rt hand and leg Time Seen by Provider: 04/05/20 11:00 Source: patient Mode of arrival: Family Vehicle History of Present Illness HPI Narrative: 40-year-old male with a history of hypertension and hypercholesteremia, presents to the emergency department for 2 weeks of intermittent right hand numbness and tingling, 24 hours of left calf pain, in 2 weeks of intermittent nausea that is now resolved. Patient states the right hand numbness and tingling often is exacerbated by different positions of his wrist and back. 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 Patient reports left calf pain which she describes as a intermittent 4/10 squeezing pain that radiates to the back of his knee. He denies any history of DVTs, not taking any blood thinners, no recent long trips, no hormone supplements. Patient states he takes metoprolol for hypertension but has stopped taking his atorvastatin about a year ago. Patient is worried about his cholesterol, a DVT, and his heart. Patient denies any a chest pain, shortness of breath, high fevers, sore throat, dizziness, trauma to the area, abdominal pain, nausea at this time, vomiting, diarrhea, or any other concerns. Related Data Home Medications Medication Instructions Recorded Confirmed atorvastatin [Lipitor] 20 mg PO QPM #0 01/19/17 11/26/19 metoprolol tartrate 25 mg PO DAILY #0 10/09/17 11/26/19 albuterol sulfate [Ventolin HFA] 0 puff INH Q4HP PRN 05/10/19 11/21/19 paroxetine HCl 30 mg PO DAILY 05/10/19 11/26/19 valacyclovir 500 mg PO DIRECTED PRN 07/22/19 11/21/19 disulfiram [Antabuse] 500 mg PO DAILY 11/08/19 11/08/19 methylphenidate HCl 10 mg PO BID 11/08/19 11/26/19 alprazolam 1.5 mg PO Q8H PRN 11/21/19 Previous Rx's Medication Instructions Recorded naproxen [Naprosyn] 500 mg PO BID PRN #20 tab 11/08/19 ondansetron HCl [Zofran] 4 mg PO Q6H PRN #10 tab 11/08/19 hydrocodone-acetaminophen [[place]] 1 tab PO Q6H PRN #10 tab 11/26/19 Allergies Allergy/AdvReac Type Severity Reaction Status Date / Time amlodipine [AMLODIPINE] Allergy Unknown Verified 11/21/19 09:51 Review of Systems <SAMAN Crystal - Last Filed: 04/05/20 13:07> Review of Systems Narrative: REVIEW OF SYSTEMS: GENERAL: Denies fevers. HENT: No head trauma or hearing loss. EYES: No loss of vision, double vision, eye pain, irritation or discharge. CARDIOVASCULAR: No chest pain or syncope. RESPIRATORY: No shortness of breath. GASTROINTESTINAL: No nausea, vomiting, diarrhea, or constipation. MUSCULOSKELETAL: No weakness or injury. Describes numbness and tingling to his right hand. Reports left calf pain. INTEGUMENTARY: No rash, lesions, or pruritus. NEURO: No memory loss, or confusion. Patient History <SAMAN Crystal - Last Filed: 04/05/20 13:07> Medical History Anxiety (Acute) Hypertension (Acute) Surgical History No significant past surgical history (Acute) Social History marital status: unknown Smoking Status: Former smoker alcohol intake: current substance use type: marijuana Smoking Status: Former smoker alcohol intake frequency: a few times a month Substance Use Type: does not use Exam <SAMAN Crystal - Last Filed: 04/05/20 13:07> Initial Vital Signs Initial Vital Signs: Vital Signs Pulse Rate 82 04/05/20 10:04 Respiratory Rate 18 04/05/20 10:04 Blood Pressure 156/102 H 04/05/20 10:04 Pulse Oximetry 98 04/05/20 10:04 PHYSICAL EXAMINATION: GENERAL: Well groomed, alert, and cooperative. Answers questions promptly and appropriately. Vital signs noted. HENT: Normocephalic, atraumatic. Ear canals patent. Oral mucosa is pink and moist. EYES: Conjunctiva pink, sclera white, no periorbital swelling. CHEST: Normal to inspection and without deformities. CARDIOVASCULAR: S1 and S2 sounds normal. Regular rate and rhythm, no murmurs, clicks, or bruits. No pedal edema. RESPIRATORY: Normal respiratory rate, trachea midline, airway patent. No stridor, nasal flaring or accessory muscle use. Lungs are clear in all [place] without wheeze, rhonchi, or crackles. No cough. GASTROINTESTINAL: Bowel sounds normoactive. Abdomen is soft and non-tender. No organomegaly. MUSCULOSKELETAL: Numbness and tingling of right hand is exacerbated with palpation of the right mid trapezius muscles and palpation of the wrist. No swelling, erythema, or ecchymosis. Equal leathersmith strength, forearm strength, deltoid strength bilaterally. Negative fullness sign, slight tenderness to upper midline calf. No swelling, erythema, or bulge to calf. Normal gait and coordination. Equal tone and mass bilaterally. EXTREMITIES: CMS intact. Moves all extremities. SKIN: Warm, dry, soft, appropriate color for ethnicity. No lesions, rashes, or wounds. NEURO: Alert and Oriented X 3. Good coordination. No ataxia, or sensory deficits, or cognitive issues. PSYCH: Appropriate affect and mood. <Marizol Dodge DO - Last Filed: 04/06/20 07:05> Initial Vital Signs Initial Vital Signs: Vital Signs Pulse Rate 82 04/05/20 10:04 Respiratory Rate 18 04/05/20 10:04 Blood Pressure 156/102 H 04/05/20 10:04 Pulse Oximetry 98 04/05/20 10:04 Scores <SAMAN Crystal - Last Filed: 04/05/20 13:07> HEART Score Heart Score history: Slightly Suspicious Heart Score EKG: Normal Heart Score Age: < 45 years old Heart Score risk factors: 1-2 risk factors Heart Score troponin: < or = to normal limit Heart Score Total: 1 PERC Score Age greater than or equal to 50 years: No Heart rate greater than or equal to 100 bpm: No Room Air O2 Sat less than 95%: No Unilateral leg swelling: No Recent trauma or surgery: No Hemoptysis: No Prior PE or DVT: No Hormone Use: No Total PERC Score: 0 Wells' Criteria for DVT Active Cancer (Treatment within 6 months): No Bedridden recently >3 days or major surgery within 4 weeks: No Calf Swelling >3cm compared to other leg: No Collateral (nonvericose) superficial veins present: No Entire leg swollen: No Localized tenderness along the deep vein system: No Pitting edema, confined to symtomatic leg: No Paralysis, paresis, or recent plaster immobilization of ext: No Previously documented DVT: No Alternative dx to DVT as likely or more likely: Yes Wells' criteria for DVT: -2 Course <SAMAN Crystal - Last Filed: 04/05/20 13:07> Course Course Narrative: Patient was offered Toradol, declined. Orders Ordered: ED Orders 04/05/20 11:12 XR chest 1V Stat 04/05/20 11:15 EKG-12 Lead Stat 04/05/20 11:18 Complete Blood Count AUTO DIFF Stat Comprehensive Metabolic Panel Stat D Dimer Stat Troponin & CK Cardiac Panel Stat Vital Signs Vital signs: Vital Signs - 8 hr 04/05/20 10:04 04/05/20 10:10 04/05/20 10:30 Pulse Rate 82 71 64 Respiratory Rate 18 Blood Pressure 156/102 H Pulse Oximetry 98 97 96 04/05/20 10:33 04/05/20 11:00 04/05/20 11:30 Pulse Rate 65 65 62 Respiratory Rate Blood Pressure 136/89 135/93 H Pulse Oximetry 97 96 96 04/05/20 12:00 Pulse Rate 61 Respiratory Rate Blood Pressure Pulse Oximetry 96 <Marizol Dodge DO - Last Filed: 04/06/20 07:05> Orders Ordered: ED Orders 04/05/20 11:12 XR chest 1V Stat 04/05/20 11:15 EKG-12 Lead Stat 04/05/20 11:18 Complete Blood Count AUTO DIFF Stat Comprehensive Metabolic Panel Stat D Dimer Stat Troponin & CK Cardiac Panel Stat Vital Signs Vital signs: Vital Signs - 8 hr 04/05/20 10:04 04/05/20 10:10 04/05/20 10:30 Pulse Rate 82 71 64 Respiratory Rate 18 Blood Pressure 156/102 H Pulse Oximetry 98 97 96 04/05/20 10:33 04/05/20 11:00 04/05/20 11:30 Pulse Rate 65 65 62 Respiratory Rate Blood Pressure 136/89 135/93 H Pulse Oximetry 97 96 96 07/12/20 12:00 Pulse Rate 61 Respiratory Rate Blood Pressure Pulse Oximetry 96 MDM - Extremity (Nontraumatic) <PatriaSAMAN Velázquez - Last Filed: 04/05/20 13:07> Medical Records Attestation: I reviewed the patient's medical records. Lab Data Attestation: I reviewed the patient's lab results. Result diagrams: 04/05/20 11:18 04/05/20 11:18 Labs: Lab Results 04/05/20 04/05/20 04/05/20 Range/Units 11:18 11:18 11:18 WBC 7.3 (4.5-11.0) X10^3/uL RBC 5.33 (4.5-5.9) X10^6/uL Hgb 15.7 (13.5-17.5) g/dL Hct 45.7 (41-53) % MCV 85.7 (80-100) fL MCH 29.5 (26-34) PG MCHC 34.4 (30-36) % RDW 12.6 (11.6-14.8) % Plt Count 288 (150-400) X10^3/uL Neut % (Auto) 65.6 (50-75) % Lymph % (Auto) 24.6 L (25-40) % Starke % (Auto) 6.7 (3-14) % Eos % (Auto) 1.6 L (2-4) % Baso % (Auto) 1.5 (0-2) % Neut # (Auto) 4800 (1868-2191) /uL Lymph # (Auto) 1800 (7491-9660) /uL Starke # (Auto) 500 (0-900) /uL Eos # (Auto) 100 (0-450) /uL Baso # (Auto) 100 (0-100) /uL D-Dimer < 200 (<230) ng/mL Sodium 139 (137-145) mmol/L Potassium 4.5 (3.4-5.1) mmol/L Chloride 107 (98-107) mmol/L Carbon Dioxide 26 (22-32) mmol/L BUN 20 (9-20) mg/dL Creatinine 0.84 (0.66-1.25) mg/dL Estimated GFR > 60.0 (>60) mL/min BUN/Creatinine Ratio 23.8 H (6-22) Glucose 112 H (70-100) mg/dL Calcium 9.6 (8.4-10.2) mg/dL Total Bilirubin 0.6 (0.2-1.3) mg/dL AST 31 (17-59) IU/L ALT 35 (<50) IU/L Alkaline Phosphatase 106 (38-126) U/L Total Creatine Kinase 58 (55-170) U/L CK-MB (CK-2) TNP CK-MB (CK-2) Rel Index TNP Troponin I < 0.012 (0.01-0.034) ng/mL Total Protein 7.7 (6.3-8.2) g/dL Albumin 4.4 (3.5-5.0) g/dL Globulin 3.3 (1.7-4.1) g/dL Albumin/Globulin Ratio 1.3 (1.0-2.8) Imaging Data Chest x-ray: Radiologist's Impression: [address] [address] XRay Report Signed Patient: Oz Pal BMR#: [id number] : 1980Acct:[id number] Age/Sex: 40 / MDate of Service: 04/05/20 Loc: ED Accession Number: [id number] Procedure: XR chest 1V Ordering Provider: Patria Lim PROCEDURE: XR CHEST 1V INDICATIONS: R arm tingling TECHNIQUE: One view of the chest was acquired. COMPARISON: [facility], CHEST 1 VIEW, 10/09/2017, 21:57. FINDINGS: Surgical changes and devices: None. Lungs and pleura: Lungs are clear. No pleural effusions or pneumothorax. Mediastinum: Mediastinal contours appear normal. Heart size is normal. Bones and chest wall: No suspicious bony lesions. Overlying soft tissues appear unremarkable. IMPRESSION: Negative chest. No acute cardiopulmonary process is evident. Dictated by: Roni Richardson M.D. on 04/05/2020 at 10:55 Approved by: Roni Richardson M.D. on 04/05/2020 at 10:56 ECG Data Interpretation: 1115: Normal sinus rhythm, rate 63, SC interval 140, QTC 377. No ST elevation or ST depression. T-wave inversion noted in LEAD III which is consistent with prior EKG from 11/08/19 and 07/10/2020. No ectopy. EKG also viewed by Dr. Dodge. [facility] Narrative Medical decision making narrative: 40-year-old male presents emergency department for left calf pain and right arm numbness and tingling. I suspect patient's symptoms are caused by left calf muscle spasm. Numbness and tingling is most likely carpal tunnel versus muscle spasm of right trapezius muscle. Less concern for cardiac etiology given normal EKG, negative troponin, non-remarkable chest x-ray, heart score of 1. Additionally, patient denies any concerning symptoms such as chest pain or shortness of breath. Less likely CVA due to lack of muscle weakness, facial distortion, or other concerns. Patient is neurologically intact without focal deficits. Numbness and tingling was worsened with palpation of the trapezius muscle and movement of the wrist on exam. Less likely DVT as D-dimer is negative, negative PERC and well's criteria I discussed with patient following up with his primary care provider for discussion of possible physical therapy for his arm on back if he continues to have these issues. He was encouraged to apply hot packs from gentle stretches to the areas. He was encouraged to follow up with PCP for further evaluation of high cholesterol and blood pressure as he verbalized he was worried about these areas. Return precautions given for new or worsening symptoms. Patient agreed to plan of care verbalized understanding. <Marizol Dodge, DO - Last Filed: 04/06/20 07:05> Lab Data Labs: Lab Results 04/05/20 04/05/20 04/05/20 Range/Units 11:18 11:18 11:18 WBC 7.3 (4.5-11.0) X10^3/uL RBC 5.33 (4.5-5.9) X10^6/uL Hgb 15.7 (13.5-17.5) g/dL Hct 45.7 (41-53) % MCV 85.7 (80-100) fL MCH 29.5 (26-34) PG MCHC 34.4 (30-36) % RDW 12.6 (11.6-14.8) % Plt Count 288 (150-400) X10^3/uL Neut % (Auto) 65.6 (50-75) % Lymph % (Auto) 24.6 L (25-40) % Starke % (Auto) 6.7 (3-14) % Eos % (Auto) 1.6 L (2-4) % Baso % (Auto) 1.5 (0-2) % Neut # (Auto) 4800 (1465-6940) /uL Lymph # (Auto) 1800 (2270-3756) /uL Starke # (Auto) 500 (0-900) /uL Eos # (Auto) 100 (0-450) /uL Baso # (Auto) 100 (0-100) /uL D-Dimer < 200 (<230) ng/mL Sodium 139 (137-145) mmol/L Potassium 4.5 (3.4-5.1) mmol/L Chloride 107 (98-107) mmol/L Carbon Dioxide 26 (22-32) mmol/L BUN 20 (9-20) mg/dL Creatinine 0.84 (0.66-1.25) mg/dL Estimated GFR > 60.0 (>60) mL/min BUN/Creatinine Ratio 23.8 H (6-22) Glucose 112 H (70-100) mg/dL Calcium 9.6 (8.4-10.2) mg/dL Total Bilirubin 0.6 (0.2-1.3) mg/dL AST 31 (17-59) IU/L ALT 35 (<50) IU/L Alkaline Phosphatase 106 (38-126) U/L Total Creatine Kinase 58 (55-170) U/L CK-MB (CK-2) TNP CK-MB (CK-2) Rel Index TNP Troponin I < 0.012 (0.01-0.034) ng/mL Total Protein 7.7 (6.3-8.2) g/dL Albumin 4.4 (3.5-5.0) g/dL Globulin 3.3 (1.7-4.1) g/dL Albumin/Globulin Ratio 1.3 (1.0-2.8) Discharge Plan Departure Patient Disposition: Home Clinical Impression: Calf cramp Acute carpal tunnel syndrome Qualifiers: Laterality: right Qualified Code(s): G56.01 - Carpal tunnel syndrome, right upper limb Discharge Date/Time: 04/05/20 12:15 Instructions: Carpal Tunnel Syndrome, DI for Muscle Spasm Activity Restrictions/Additional Instructions: Thank you for entrusting me with your care today. As discussed, your laboratory work, EKG, and chest x-ray are non-remarkable. There is no evidence of pneumonia, a blood clot, a heart attack, diabetes, or liver problems. It is possible that your calf pain is caused by a muscle spasm in your arm numbness and tingling is caused by muscle spasms and/or your back and or carpal tunnel/irritation of the nerve. I suggest applying warm compresses to the area, stretching the area, taking ibuprofen as needed for pain, and following up with your primary care provider for discussion about possible physical therapy if indicated. Your blood pressure was high today, continue to monitor blood pressure for the next few weeks. Please follow up with your primary care provider for discussion of cholesterol testing and blood pressure management. Return emergency department for any new or worsening symptoms such as chest pain, shortness of breath, dizziness, syncope, fevers, or any other concerns. Prescriptions: No Action atorvastatin [Lipitor] 20 MG tablet 20 mg PO QPM Qty: 0 RF: 0 metoprolol tartrate 25 MG tablet 25 mg PO DAILY Qty: 0 RF: 0 valacyclovir 500 mg tablet 500 mg PO DIRECTED PRN (Reason: Cold Sores) RF: 0 disulfiram [Antabuse] 500 mg Tablet 500 mg PO DAILY RF: 0 methylphenidate HCl 10 mg tablet extended release 10 mg PO BID RF: 0 naproxen [Naprosyn] 500 mg tablet 500 mg PO BID PRN (Reason: pain) Qty: 20 RF: 0 ondansetron HCl [Zofran] 4 mg tablet 4 mg PO Q6H PRN (Reason: nausea and vomiting) Qty: 10 RF: 0 alprazolam 0.5 mg tablet 1.5 mg PO Q8H PRN (Reason: Anxiety) RF: 0 hydrocodone-acetaminophen [[place]] 5-325 mg tablet 1 tab PO Q6H PRN (Reason: pain) Qty: 10 RF: 0 paroxetine HCl 20 mg tablet 30 mg PO DAILY RF: 0 albuterol sulfate [Ventolin HFA] 90 MCG/PUFF HFA aerosol inhaler 0 puff INH Q4HP PRN (Reason: Shortness Of Breath) RF: 0 Referrals: Tyler Lubin MD [Primary Care Provider] - Stand Alone Forms: Work Release Note <Marizol Dodge DO - Last Filed: 04/06/20 07:05> Cosign ED Attending Cosignature Attestation: I was immediately available in the department for consultation. Documentation has been reviewed. I agree with assessment and plan.
[2020-04-05 11:26] LABS: Add Manual Diff / Slide Review NO; Basophils Absolute Auto 100 /uL (0-100); Basophils Percent Auto 1.5 % (0-2); Eosinophils Absolute Auto 100 /uL (0-450); Eosinophils Percent Auto 1.6 % (2-4); Hematocrit 45.7 % (41-53); Hemoglobin 15.7 g/dL (13.5-17.5); Lymphocytes Absolute Auto 1800 /uL (1100-4500); Lymphocytes Percent Auto 24.6 % (25-40); Mean Corpuscular HGB Conc 34.4 % (30-36); Mean Corpuscular Hemoglobin 29.5 PG (26-34); Mean Corpuscular Volume 85.7 fL (80-100); Monocytes Absolute Auto 500 /uL (0-900); Monocytes Percent Auto 6.7 % (3-14); Neutrophils Absolute Auto 4800 /uL (1500-7000); Neutrophils Percent Auto 65.6 % (50-75); Platelet Count 288 X10^3/uL (150-400); Red Blood Cell Count 5.33 X10^6/uL (4.5-5.9); Red Cell Distribution Width 12.6 % (11.6-14.8); White Blood Cell Count 7.3 X10^3/uL (4.5-11.0)
[2020-04-05 11:39] LABS: Alanine Aminotransferase 35 IU/L (<50); Albumin 4.4 g/dL (3.5-5.0); Albumin Globulin Ratio 1.3 (1.0-2.8); Alkaline Phosphatase 106 U/L (38-126); Aspartate Aminotransferase 31 IU/L (17-59); BUN Creatinine Ratio 23.8 (6-22); Bilirubin Total 0.6 mg/dL (0.2-1.3); Blood Urea Nitrogen 20 mg/dL (9-20); Calcium 9.6 mg/dL (8.4-10.2); Carbon Dioxide 26 mmol/L (22-32); Chloride 107 mmol/L (98-107); Creatine Kinase 58 U/L (55-170); Estimated Glomerular Filt Rate > 60.0 mL/min (>60); Globulin 3.3 g/dL (1.7-4.1); Glucose 112 mg/dL (70-100); HEMOLYSIS < 15 (0-50); Potassium 4.5 mmol/L (3.4-5.1); Sodium 139 mmol/L (137-145); Total Protein 7.7 g/dL (6.3-8.2)
[2020-04-05 11:50] LABS: D Dimer < 200 ng/mL (<230)
[2020-04-05 11:51] LABS: Troponin I < 0.012 ng/mL (0.01-0.034)
== END 2020-04-05 12:15 | disposition home or self-care (01) ==
PROVIDERS: Emergency Provider Nurse Practitioner; Family Provider Family Medicine; PCP Family Medicine
DX: G56.01 Carpal tunnel syndrome, right upper limb (principal); M62.831 Muscle spasm of calf; I10 Essential (primary) hypertension; E78.00 Pure hypercholesterolemia, unspecified; R20.2 Paresthesia of skin
CPT/HCPCS: 36415; 71045; 80053; 82550; 84484; 85025; 85379; 93005; 93010; 99284

== ENCOUNTER 2020-10-07 21:34 | Emergency (ER) | payer OTHER, MEDICAID, SELFPAY ==
[2020-10-07 21:39] VITALS: BP 143/97; PULSE 96; RESP 17; TEMP 37.2; O2SAT 99; BMI 29.5
[2020-10-07 22:19] VITALS: PULSE 85; RESP 22; O2SAT 96
[2020-10-07 22:30] VITALS: BP 139/98; PULSE 89; RESP 28; O2SAT 95
[2020-10-07 22:45] LABS: COVID19 -Nasal RAPID Negative (Negative)
[2020-10-07 23:00] VITALS: BP 145/106; PULSE 89; RESP 31; O2SAT 96
--- NOTE | 2020-10-07 23:05 | ED.NAVMDI ---
HPI - Nausea/Vomiting/Diarrhea General Chief complaint: Nausea/Vomiting/Diarrhea Stated complaint: states high blood pressure, diarrhea Time Seen by Provider: 10/07/20 22:23 Source: patient Mode of arrival: Ambulatory Limitations: no limitations History of Present Illness HPI Narrative: Patient is a 40-year-old male with a history of high blood pressure. Is on metoprolol but states that he has not taken it for several days. He states that over the past couple days he has had a headache. He took his blood pressure at home and his systolic blood pressure has been in the 160s to 170s. He took a dose of his metoprolol today and it did not help his symptoms of he took a 2nd dose. He also states that he started to have diarrhea today. Related Data Home Medications Medication Instructions Recorded Confirmed atorvastatin [Lipitor] 20 mg PO QPM #0 01/19/17 11/26/19 metoprolol tartrate 25 mg PO DAILY #0 10/09/17 11/26/19 albuterol sulfate [Ventolin HFA] 0 puff INH Q4HP PRN 05/10/19 11/21/19 paroxetine HCl 30 mg PO DAILY 05/10/19 11/26/19 valacyclovir 500 mg PO DIRECTED PRN 07/22/19 11/21/19 disulfiram [Antabuse] 500 mg PO DAILY 11/08/19 11/08/19 methylphenidate HCl 10 mg PO BID 11/08/19 11/26/19 alprazolam 1.5 mg PO Q8H PRN 11/21/19 Previous Rx's Medication Instructions Recorded naproxen [Naprosyn] 500 mg PO BID PRN #20 tab 11/08/19 ondansetron HCl [Zofran] 4 mg PO Q6H PRN #10 tab 11/08/19 hydrocodone-acetaminophen [[place]] 1 tab PO Q6H PRN #10 tab 11/26/19 lisinopril 10 mg PO DAILY #30 tab 10/07/20 Allergies Allergy/AdvReac Type Severity Reaction Status Date / Time amlodipine [AMLODIPINE] Allergy Unknown Verified 11/21/19 09:51 Review of Systems Constitutional Constitutional: Denies fever(s) and Reports headache(s) ENT Ears, Nose, Mouth, and Throat: Reports headache(s) Cardiovascular Cardiovascular: Denies chest pain and Denies dyspnea Respiratory Respiratory: Denies dyspnea Gastrointestinal Gastrointestinal: Denies abdominal pain, Reports diarrhea, Denies nausea and Denies vomiting Genitourinary Genitourinary: Denies dysuria Genitourinary: Denies dysuria Musculoskeletal Musculoskeletal: Denies arthralgias and Denies myalgias Integumentary/Breasts Skin/Breast: Denies rash Neurologic Neurologic: Denies behavioral changes and Reports headache(s) Psychiatric Psychiatric: Denies behavioral changes Hematologic/Lymphatic On Anticoagulants: No Allergic/Immunologic Allergic/Immunologic: Denies urticaria Patient History Medical History Anxiety Hypertension Surgical History No significant past surgical history Social History marital status: unknown Smoking Status: Former smoker alcohol intake: current substance use type: marijuana Smoking Status: Former smoker alcohol intake frequency: a few times a month Substance Use Type: does not use Exam Initial Vital Signs Initial Vital Signs: Vital Signs Temperature 98.9 F 10/07/20 21:39 Pulse Rate 96 H 10/07/20 21:39 Respiratory Rate 17 10/07/20 21:39 Blood Pressure 143/97 H 10/07/20 21:39 Pulse Oximetry 99 10/07/20 21:39 Const General: cooperative and comfortable Limitations: mental status not altered HENMT Head: normal to inspection and normocephalic Resp Effort & Inspection: normal respiratory effort Auscultation: clear to auscultation bilaterally Cardio Rate: regular rate Rhythm: regular rhythm GI Inspection: non-distended Palpation: soft Skin Lesions: no lesions Rashes: no rashes Neuro General: patient alert, patient awake and patient oriented x3 Cognition: normal cognition Speech: speech normal Extrem General: normal to inspection and capillary refill normal Psych Appearance: grossly normal and well kempt Scores GCS Carlita coma scale eye opening: Spontaneous Carlita coma scale verbal response: Orientated Carlita coma scale motor response: Obey commands Carlita coma scale total score: 15 Course Orders Ordered: ED Orders 10/07/20 22:22 COVID19 Stat Discontinued Medications Acetaminophen (Acetaminophen 325 Mg Tablet) 650 mg PO NOW ONE Stop: 10/07/20 23:07 Last Admin: 10/07/20 23:16 Dose: 650 mg Documented by: JEVON Lisinopril (Lisinopril 10 Mg Tablet) 10 mg PO NOW ONE Stop: 10/07/20 23:07 Last Admin: 10/07/20 23:16 Dose: 10 mg Documented by: JEVON Vital Signs Vital signs: Vital Signs - 8 hr 10/07/20 21:39 10/07/20 22:19 10/07/20 22:30 Temperature 98.9 F Pulse Rate 96 H 85 89 Respiratory Rate 17 22 28 H Blood Pressure 143/97 H 139/98 H Pulse Oximetry 99 96 95 10/07/20 23:00 10/07/20 23:16 Temperature Pulse Rate 89 87 Respiratory Rate 31 H Blood Pressure 145/106 H 145/106 H Pulse Oximetry 96 MDM - Nausea/Vomiting/Diarrhea Lab Data Attestation: I reviewed the patient's lab results. Labs: Lab Results 10/07/20 Range/Units 22:22 SARS-CoV-2 (PCR) Negative (Negative) MDM Narrative Medical decision making narrative: Low suspicion for hypertensive emergency given his clinical presentation today. Patient is extremely concerned about his high blood pressure the fact that has not improved with the metoprolol. He initially stated that he had missed several days of his metoprolol but then stated that he has been taking it for the past several days and still is having elevated blood pressures. He states he does take his blood pressure at home and is frequently greater than 140 systolic. Had a discussion with him regarding his medicines. Plan will be is to start him on a low-dose lisinopril in addition to his metoprolol to see if this does not improve his blood pressures at home. He was given instructions on how to take his blood pressure properly at home. He is going to contact his primary provider for follow-up. Given return precautions and follow-up instructions. He expressed understanding and agreement. Discharge Plan Departure Patient Disposition: Home Clinical Impression: Hypertension, Headache, Diarrhea Instructions: DI for High Blood Pressure Activity Restrictions/Additional Instructions: Recommend that you continue taking your metoprolol at 25 mg a day. A prescription for a new blood pressure medicine was electronically transmitted to [facility] in [place]. I do recommend that you start taking your blood pressure at home. Take it 1 time a day like we discussed. Contact your primary provider for follow-up. Return to the emergency department for any new or worsening symptoms. Prescriptions: New lisinopril 10 mg tablet 10 mg PO DAILY Qty: 30 RF: 0 No Action atorvastatin [Lipitor] 20 MG tablet 20 mg PO QPM Qty: 0 RF: 0 metoprolol tartrate 25 MG tablet 25 mg PO DAILY Qty: 0 RF: 0 valacyclovir 500 mg tablet 500 mg PO DIRECTED PRN (Reason: Cold Sores) RF: 0 disulfiram [Antabuse] 500 mg Tablet 500 mg PO DAILY RF: 0 methylphenidate HCl 10 mg tablet extended release 10 mg PO BID RF: 0 naproxen [Naprosyn] 500 mg tablet 500 mg PO BID PRN (Reason: pain) Qty: 20 RF: 0 ondansetron HCl [Zofran] 4 mg tablet 4 mg PO Q6H PRN (Reason: nausea and vomiting) Qty: 10 RF: 0 alprazolam 0.5 mg tablet 1.5 mg PO Q8H PRN (Reason: Anxiety) RF: 0 hydrocodone-acetaminophen [[place]] 5-325 mg tablet 1 tab PO Q6H PRN (Reason: pain) Qty: 10 RF: 0 paroxetine HCl 20 mg tablet 30 mg PO DAILY RF: 0 albuterol sulfate [Ventolin HFA] 90 MCG/PUFF HFA aerosol inhaler 0 puff INH Q4HP PRN (Reason: Shortness Of Breath) RF: 0 Referrals: Tyler Lubin MD [Primary Care Provider] - Stand Alone Forms: Work Release Note
[2020-10-07 23:16] VITALS: BP 145/106; PULSE 87
[2020-10-07] MEDS: ACETAMINOPHEN 325 MG TABLET 650 MG PO (23:16)
[2020-10-07] MEDS: lisinopriL 10 MG TABLET PO (23:16)
== END 2020-10-07 23:30 | disposition home or self-care (01) ==
PROVIDERS: Emergency Provider Emergency Medicine; Family Provider Family Medicine; PCP Family Medicine
DX: I10 Essential (primary) hypertension (principal); R51.9 Headache, unspecified; R19.7 Diarrhea, unspecified; Z20.822 Contact with and (suspected) exposure to COVID-19
CPT/HCPCS: 87635; 99281; 99283; C9803

== ENCOUNTER 2022-03-16 04:02 | Emergency (ER) | payer OTHER, MEDICAID, SELFPAY ==
[2022-03-16 04:16] VITALS: BP 161/118; PULSE 98; RESP 18; TEMP 36.7; O2SAT 95; BMI 28.8
--- NOTE | 2022-03-16 04:17 | ED_ITS ---
HPI - Eye Problem General Chief complaint: Upper Respiratory Symptoms Stated complaint: left eye and no taste Time Seen by Provider: 03/16/22 04:14 History of Present Illness HPI Narrative: Patient is a 41-year-old male history asthma hyperlipidemia hypertension presenting today with left eye pruritus. He says he has had some sneezes he has been itching his left eye near the tear duct. Is now on low bit more swollen. It was crusted over as well. No blurry vision or double vision. He says he is supposed were glasses but he does not wear them frequently. He also says he can not taste or smell. No fever or chills. Related Data Home Medications Medication Instructions Recorded Confirmed atorvastatin 20 mg tablet (Lipitor) 20 mg PO QPM ##0 01/19/17 11/26/19 metoprolol tartrate 25 mg tablet 25 mg PO DAILY ##0 10/09/17 11/26/19 albuterol sulfate 90 mcg/actuation 0 puff INH Q4HP PRN Shortness Of 05/10/19 11/21/19 aerosol inhaler (Ventolin HFA) Breath paroxetine HCl 20 mg tablet 30 mg PO DAILY 05/10/19 11/26/19 valacyclovir 500 mg tablet 500 mg PO DIRECTED PRN Cold 07/22/19 11/21/19 Sores disulfiram 500 mg tablet (Antabuse) 500 mg PO DAILY 11/08/19 11/08/19 methylphenidate HCl 10 mg 10 mg PO BID 11/08/19 11/26/19 tablet,extended release alprazolam 0.5 mg tablet 1.5 mg PO Q8H PRN Anxiety 11/21/19 Previous Rx's Medication Instructions Recorded naproxen 500 mg tablet (Naprosyn) 500 mg PO BID PRN pain #20 tabs 11/08/19 ondansetron HCl 4 mg tablet 4 mg PO Q6H PRN nausea and 11/08/19 (Zofran) vomiting #10 tabs hydrocodone 5 mg-acetaminophen 325 1 tab PO Q6H PRN pain #10 tabs 11/26/19 mg tablet ([place]) lisinopril 10 mg tablet 10 mg PO DAILY #30 tabs 10/07/20 cetirizine 10 mg tablet 10 mg PO DAILY PRN allergy 03/16/22 symptoms #30 tabs Allergies Allergy/AdvReac Type Severity Reaction Status Date / Time amlodipine [AMLODIPINE] Allergy Unknown Verified 11/21/19 09:51 Review of Systems Review of Systems Narrative: GENERAL: Denies chills, fatigue, malaise, fever, sweats, travel HEENT: See HPI RESPIRATORY: Denies dyspnea, cough, wheezing, hemoptysis, sputum. CARDIOVASCULAR: Denies chest pain, palpitations, orthopnea, edema GASTROINTESTINAL: Denies nausea, vomiting, abdominal pain, diarrhea, constipation, melena. : Denies dysuria, frequency, incontinence, hematuria, urinary retention, flank pain. MUSCULOSKELETAL: Denies weakness, joint pain, or bony pain SKIN: No rash, no erythema, no pruritus NEUROLOGIC: Denies weakness, dizziness, headache, numbness, change in speech, confusion PSYCHIATRIC: No concerning psychosocial issues. 12 point review of systems is negative except for those stated above and HPI Patient History Medical History (Updated 03/16/22 @ 04:55 by Marizol Dodge DO) Anxiety Hypertension Surgical History No significant past surgical history Social History marital status: unknown Smoking Status: Former smoker alcohol intake: current substance use type: marijuana Smoking Status: Former smoker alcohol intake frequency: a few times a month Substance Use Type: does not use Exam Initial Vital Signs Initial Vital Signs: Vital Signs Temperature 98.0 F 03/16/22 04:16 Pulse Rate 98 H 03/16/22 04:16 Respiratory Rate 18 03/16/22 04:16 Blood Pressure 161/118 H 03/16/22 04:16 Pulse Oximetry 95 03/16/22 04:16 Oxygen Delivery Method 03/16/22 04:16 GENERAL: Well-appearing, well-nourished and in no acute distress. EYE: EOMI, CHAU, left eye has some mild periorbital edema no significant swelling no tenderness. Able to open it completely. Left eye was treated with proparacaine, stained with fluorescein. No dye uptake. No foreign body. CARDIOVASCULAR: peripheral pulses in tact, cap refill <2 sec RESPIRATORY: No respiratory distress, speaks in full sentences without difficulty EXTREMITIES: Normal range of motion, no clubbing or edema. Neurovascularly intact NEUROLOGICAL: Cranial nerves II through XII grossly intact. Normal gait and speech. SKIN: Warm, dry, no petechiae, no rashes or lesions. Course Orders Ordered: ED Orders 03/16/22 04:10 COVID19 -Nasal RAPID/Pre-Proc Stat Discontinued Medications Fluorescein Sodium (Fluorescein 1 Mg Strip) 1 mg EYE-BOTH NOW ONE Stop: 03/16/22 04:18 Last Admin: 03/16/22 04:40 Dose: 1 mg Proparacaine HCl (Proparacaine 0.5% Ophth [place]) 1 drops EYE-BOTH NOW ONE Stop: 03/16/22 04:18 Last Admin: 03/16/22 04:40 Dose: 1 drop Vital Signs Vital signs: Vital Signs - 8 hr 03/16/22 04:16 03/16/22 05:05 Temperature 98.0 F Pulse Rate 98 H 75 Respiratory Rate 18 15 Blood Pressure 161/118 H 131/81 Pulse Oximetry 95 98 Oxygen Delivery Method Room Air Room Air MDM - Eye Problem Lab Data Labs: Lab Results 03/16/22 Range/Units 04:10 SARS-CoV-2 (PCR) Negative (Negative) MDM Narrative Medical decision making narrative: At this time his COVID test is negative he overall appears well. With sneezing and pruritus of left eye probably more allergic related and allergies. He has no sign of periorbital cellulitis. Recommend outpatient allergy medication and close monitoring. Currently there is no corneal abrasion. Discharge Plan Departure Patient Disposition: Home Clinical Impression: Allergic conjunctivitis and rhinitis Instructions: Allergies, Respiratory (Alternative Therapy) Activity Restrictions/Additional Instructions: *You have been diagnosed with allergic conjunctivitis *What to do: At this time no need for antibiotics. May expect to have more swelling around left eye when you wake and swelling should improve when your upright. Monitor for any worsening redness around her eye and swelling. *Continue to take medications as directed cetirizine 10 mg once a day as needed for itching and allergy *Follow up with your primary care provider in 2-3 days or call [phone] *Return to ER if you should have increasing redness around her eye crusting over worsening vision fever [or] any new, worsening or concerning symptoms Prescriptions: New cetirizine 10 mg tablet 10 mg PO DAILY PRN (Reason: allergy symptoms) Qty: 30 0RF No Action atorvastatin [Lipitor] 20 MG tablet 20 mg PO QPM Qty: 0 metoprolol tartrate 25 MG tablet 25 mg PO DAILY Qty: 0 valacyclovir 500 mg tablet 500 mg PO DIRECTED PRN (Reason: Cold Sores) disulfiram [Antabuse] 500 mg Tablet 500 mg PO DAILY methylphenidate HCl 10 mg tablet extended release 10 mg PO BID naproxen [Naprosyn] 500 mg tablet 500 mg PO BID PRN (Reason: pain) Qty: 20 0RF ondansetron HCl [Zofran] 4 mg tablet 4 mg PO Q6H PRN (Reason: nausea and vomiting) Qty: 10 0RF alprazolam 0.5 mg tablet 1.5 mg PO Q8H PRN (Reason: Anxiety) hydrocodone-acetaminophen [[place]] 5-325 mg tablet 1 tab PO Q6H PRN (Reason: pain) Qty: 10 0RF paroxetine HCl 20 mg tablet 30 mg PO DAILY albuterol sulfate [Ventolin HFA] 90 MCG/PUFF HFA aerosol inhaler 0 puff INH Q4HP PRN (Reason: Shortness Of Breath) lisinopril 10 mg tablet 10 mg PO DAILY Qty: 30 0RF Referrals: Tyler Lubin MD [Primary Care Provider] - Stand Alone Forms: Work Release Note Visit Report Forms: Patient Portal/API
[2022-03-16 04:40] LABS: COVID19 -Nasal RAPID Negative (Negative)
[2022-03-16] MEDS: FLUORESCEIN 1 MG STRIP EYE-BOTH (04:40)
[2022-03-16] MEDS: PROPARACAINE 0.5% OPHTH SOL 1 DROPS EYE-BOTH (04:40)
[2022-03-16 05:05] VITALS: BP 131/81; PULSE 75; RESP 15; O2SAT 98
== END 2022-03-16 05:06 | disposition home or self-care (01) ==
PROVIDERS: Emergency Provider Emergency Medicine; Family Provider Family Medicine; PCP Family Medicine
DX: H10.12 Acute atopic conjunctivitis, left eye (principal); Z20.822 Contact with and (suspected) exposure to COVID-19
CPT/HCPCS: 87635; 99282; C9803

== ENCOUNTER 2022-11-25 08:25 | Emergency (ER) | payer OTHER, MEDICAID, SELFPAY ==
[2022-11-25] VITALS (37 sets, daily range): BP systolic 131–179; BP diastolic 76–113; PULSE 67–94; RESP 15–24; TEMP 36.8; O2SAT 94–99; BMI 27.3
--- NOTE | 2022-11-25 08:40 | DI.RAD.S_ITS ---
PROCEDURE: XR CHEST 1V INDICATIONS: chest pain TECHNIQUE: One view of the chest was acquired. COMPARISON: [facility], [facility], XR CHEST 1V, 04/05/2020, 11:38. FINDINGS: Surgical changes and devices: None. Lungs and pleura: Lungs are clear. No pleural effusions or pneumothorax. Mediastinum: Mediastinal contours appear normal. Heart size is normal. Bones and chest wall: No suspicious bony lesions. Overlying soft tissues appear unremarkable. IMPRESSION: No evidence acute pulmonary process. Dictated by: Kole Waddell M.D. on 11/25/2022 at 9:00 Approved by: Kole Waddell M.D. on 11/25/2022 at 9:00
[2022-11-25 09:00] LABS: Add Manual Diff / Slide Review NO; Basophils Absolute Auto 100 /uL (0-100); Basophils Percent Auto 1.5 % (0-2); Eosinophils Absolute Auto 200 /uL (0-450); Eosinophils Percent Auto 3.8 % (2-4); Hematocrit 44.4 % (41-53); Hemoglobin 15.3 g/dL (13.5-17.5); Lymphocytes Absolute Auto 1400 /uL (1100-4500); Lymphocytes Percent Auto 22.2 % (25-40); Mean Corpuscular HGB Conc 34.4 % (30-36); Mean Corpuscular Hemoglobin 29.2 PG (26-34); Mean Corpuscular Volume 84.9 fL (80-100); Monocytes Absolute Auto 400 /uL (0-900); Monocytes Percent Auto 6.5 % (3-14); Neutrophils Absolute Auto 4100 /uL (1500-7000); Platelet Count 247 X10^3/uL (150-400); Red Blood Cell Count 5.22 X10^6/uL (4.5-5.9); Red Cell Distribution Width 12.9 % (11.6-14.8); White Blood Cell Count 6.2 X10^3/uL (4.5-11.0)
[2022-11-25] MEDS: ASPIRIN 81 MG CHEW TAB 324 MG PO (09:05)
[2022-11-25 09:06] LABS: INR 1.1 (0.9-1.3); Prothrombin Time 13.1 SECONDS (10.1-12.7)
[2022-11-25 09:08] LABS: PTT Partial Thromboplastin Tim 32 SECONDS (26-36)
[2022-11-25 09:11] LABS: Alanine Aminotransferase 30 IU/L (<50); Albumin 4.4 g/dL (3.5-5.0); Albumin Globulin Ratio 1.1 (1.0-2.8); Alkaline Phosphatase 120 U/L (38-126); Aspartate Aminotransferase 27 IU/L (17-59); BUN Creatinine Ratio 17.5 (6-22); Bilirubin Total 0.8 mg/dL (0.2-1.3); Blood Urea Nitrogen 17 mg/dL (9-20); Calcium 8.7 mg/dL (8.4-10.2); Carbon Dioxide 30 mmol/L (22-32); Chloride 105 mmol/L (98-107); Creatine Kinase 110 U/L (55-170); Estimated Glomerular Filt Rate > 60 mL/min (>60); Globulin 3.9 g/dL (1.7-4.1); Glucose 99 mg/dL (70-100); HEMOLYSIS < 15 (0-50); Lipase 301 U/L (23-300); Magnesium 2.3 mg/dL (1.6-2.3); Potassium 3.8 mmol/L (3.4-5.1); Sodium 141 mmol/L (137-145); Total Protein 8.3 g/dL (6.3-8.2)
[2022-11-25 09:22] LABS: Troponin I < 0.012 ng/mL (0.01-0.034)
[2022-11-25 09:26] LABS: CKMB % Relative Index 0.3 % (1.5-5.0); Creatine Kinase MB 0.38 ng/mL (<2.37)
[2022-11-25 09:53] LABS: COVID19 -Nasal RAPID Negative (Negative)
--- NOTE | 2022-11-25 09:57 | ED.CHESTPAIN ---
HPI - Chest Pain <Marizol DO Echo - Last Filed: 11/26/22 07:13> General Chief Complaint: Chest Pain Stated Complaint: pressure in heart area Time Seen by Provider: 11/25/22 08:45 Source: patient Mode of arrival: Ambulatory Limitations: no limitations History of Present Illness HPI narrative: Patient is a 42-year-old male history of hypertension hyperlipidemia tobacco abuse, presents today with chest discomfort. He reports that yesterday he noticed chest discomfort got better when he laid down. It was worse with exertion. [place] like tightness and pressure over the left side. Nonradiating no significant nausea diaphoresis or abdominal pain. He is never had anything like this before. He has no establish care but the [facility] does refill his medications. He is not having any just has discomfort now. No family history of coronary artery disease. No recent travel. Related Data Home Medications Medication Instructions Recorded Confirmed atorvastatin 20 mg tablet (Lipitor) 20 mg PO QPM ##0 01/19/17 11/26/19 metoprolol tartrate 25 mg tablet 25 mg PO DAILY ##0 10/09/17 11/26/19 albuterol sulfate 90 mcg/actuation 0 puff INH Q4HP PRN Shortness Of 05/10/19 11/21/19 aerosol inhaler (Ventolin HFA) Breath paroxetine HCl 20 mg tablet 30 mg PO DAILY 05/10/19 11/26/19 valacyclovir 500 mg tablet 500 mg PO DIRECTED PRN Cold 07/22/19 11/21/19 Sores disulfiram 500 mg tablet (Antabuse) 500 mg PO DAILY 11/08/19 11/08/19 methylphenidate HCl 10 mg 10 mg PO BID 11/08/19 11/26/19 tablet,extended release alprazolam 0.5 mg tablet 1.5 mg PO Q8H PRN Anxiety 11/21/19 Previous Rx's Medication Instructions Recorded naproxen 500 mg tablet (Naprosyn) 500 mg PO BID PRN pain #20 tabs 11/08/19 ondansetron HCl 4 mg tablet 4 mg PO Q6H PRN nausea and 11/08/19 (Zofran) vomiting #10 tabs hydrocodone 5 mg-acetaminophen 325 1 tab PO Q6H PRN pain #10 tabs 11/26/19 mg tablet ([place]) lisinopril 10 mg tablet 10 mg PO DAILY #30 tabs 10/07/20 cetirizine 10 mg tablet 10 mg PO DAILY PRN allergy 03/16/22 symptoms #30 tabs Allergies Allergy/AdvReac Type Severity Reaction Status Date / Time amlodipine [AMLODIPINE] Allergy Unknown Verified 11/25/22 08:45 Review of Systems <Marizol Barry DO - Last Filed: 11/26/22 07:13> Review of Systems ROS Unobtainable: All systems reviewed & are unremarkable except as noted in HPI and below Patient History <Marizol Barry DO - Last Filed: 11/26/22 07:13> Medical History (Updated 11/26/22 @ 01:53 by David Jamison DO) Anxiety Hypertension Surgical History No significant past surgical history Social History marital status: unknown Smoking Status: Former smoker alcohol intake: current substance use type: marijuana Smoking Status: Former smoker alcohol intake frequency: a few times a month Substance Use Type: does not use Exam <Marizol Barry DO - Last Filed: 11/26/22 07:13> Initial Vital Signs Initial Vital Signs: Vital Signs Pulse Rate 94 H 11/25/22 08:37 Blood Pressure 166/100 H 11/25/22 08:37 Pulse Oximetry 98 11/25/22 08:37 GENERAL: Alert 42-year-old male and in no acute distress. HEENT: Head atraumatic,EOMI, pupils reactive, face symmetric, moist mucous membranes CARDIOVASCULAR: Regular rate and rhythm without murmurs, rubs or gallops. RESPIRATORY: Breath sounds equal bilaterally, no wheezes rales or rhonchi. ABDOMEN: Soft, nontender. Normoactive bowel sounds all 4 quadrants. No guarding or rebound. EXTREMITIES: Normal range of motion, no clubbing or edema. Neurovascularly intact NEUROLOGICAL: Alert and oriented x4.Normal gait and speech. SKIN: Warm, dry, no laceration, no petechiae, no rashes or lesions. <David Jamison DO - Last Filed: 11/26/22 05:15> Initial Vital Signs Initial Vital Signs: Vital Signs Pulse Rate 94 H 11/25/22 08:37 Blood Pressure 166/100 H 11/25/22 08:37 Pulse Oximetry 98 11/25/22 08:37 Scores <Marizol Barry DO - Last Filed: 11/26/22 07:13> HEART Score Heart Score history: Highly Suspicious Heart Score EKG: Non-Specific repolarization disturbance Heart Score Age: < 45 years old Heart Score risk factors: > 3 risk factors or hx of atherosclerotic disease Heart Score troponin: < or = to normal limit Heart Score Total: 5 <David Jamison DO - Last Filed: 11/26/22 05:15> HEART Score Heart Score Total: 5 Course <Marizol Barry DO - Last Filed: 11/26/22 07:13> Orders Ordered: ED Orders 11/26/22 01:00 Partial Thromboplastin Time Q6H Discontinued Medications Aspirin (Aspirin 81 Mg Chew Tab) 324 mg PO NOW ONE Stop: 11/25/22 08:41 Last Admin: 11/25/22 09:05 Dose: 324 mg Documented By: ISA Atorvastatin Calcium (Atorvastatin 20 Mg Tablet) 80 mg PO NOW ONE Stop: 11/26/22 01:31 Last Admin: 11/26/22 01:39 Dose: 80 mg Documented By: RONNY Heparin Sodium (Porcine) (Heparin 5,000 Unit/Ml Vial) 5,000 unit IV NOW ONE Stop: 11/26/22 00:53 Last Admin: 11/26/22 01:22 Dose: 5,000 unit Documented By: YASH Heparin Sodium/Dextrose (Heparin Drip) 25,000 unit in 500 mls @ 20 mls/hr IV CONT FLORINDA; Protocol Last Titration: 11/26/22 05:35 Dose: 0 units/hr, 0 mls/hr Documented By: Admin: 11/26/22 01:18 Dose: 1,000 units/hr, 20 mls/hr Documented By: YASH Metoprolol Tartrate (Metoprolol Ir 25 Mg Tablet) 25 mg PO NOW ONE Stop: 11/26/22 01:31 Last Admin: 11/26/22 01:39 Dose: 25 mg Documented By: RONNY Nitroglycerin (Nitroglycerin 0.4 Mg Sl Tab) 0.4 mg SL [id number] PRN PRN Reason: Chest Pain Last Admin: 11/25/22 20:28 Dose: 0.4 mg Documented By: NR Vital Signs Vital signs: Vital Signs - 8 hr 11/25/22 23:30 11/26/22 00:00 11/26/22 00:03 Pulse Rate 67 69 69 Respiratory Rate Blood Pressure Pulse Oximetry 96 96 97 Oxygen Delivery Method 11/26/22 00:03 11/26/22 00:30 11/26/22 01:00 Pulse Rate 61 Respiratory Rate Blood Pressure 138/86 139/70 Pulse Oximetry 96 Oxygen Delivery Method Room Air 11/26/22 01:00 11/26/22 01:30 11/26/22 02:00 Pulse Rate 66 65 Respiratory Rate Blood Pressure 131/71 Pulse Oximetry 95 96 Oxygen Delivery Method Room Air 11/26/22 02:00 11/26/22 02:30 11/26/22 03:00 Pulse Rate 62 62 Respiratory Rate Blood Pressure 133/76 Pulse Oximetry 96 94 Oxygen Delivery Method 11/26/22 03:00 11/26/22 03:30 11/26/22 04:00 Pulse Rate 62 61 74 Respiratory Rate 16 17 17 Blood Pressure Pulse Oximetry 97 96 95 Oxygen Delivery Method 11/26/22 04:01 11/26/22 04:01 11/26/22 04:30 Pulse Rate 69 59 L Respiratory Rate 17 16 Blood Pressure 150/81 H Pulse Oximetry 98 96 Oxygen Delivery Method 11/26/22 05:00 11/26/22 05:00 11/26/22 05:30 Pulse Rate 65 Respiratory Rate 13 Blood Pressure 111/75 128/76 Pulse Oximetry 95 Oxygen Delivery Method 11/26/22 05:30 Pulse Rate 65 Respiratory Rate 18 Blood Pressure Pulse Oximetry 96 Oxygen Delivery Method <David Jamison DO - Last Filed: 11/26/22 05:15> Orders Ordered: ED Orders 11/26/22 01:00 Partial Thromboplastin Time Q6H Discontinued Medications Aspirin (Aspirin 81 Mg Chew Tab) 324 mg PO NOW ONE Stop: 11/25/22 08:41 Last Admin: 11/25/22 09:05 Dose: 324 mg Documented By: ISA Atorvastatin Calcium (Atorvastatin 20 Mg Tablet) 80 mg PO NOW ONE Stop: 11/26/22 01:31 Last Admin: 11/26/22 01:39 Dose: 80 mg Documented By: RONNY Heparin Sodium (Porcine) (Heparin 5,000 Unit/Ml Vial) 5,000 unit IV NOW ONE Stop: 11/26/22 00:53 Last Admin: 11/26/22 01:22 Dose: 5,000 unit Documented By: YASH Heparin Sodium/Dextrose (Heparin Drip) 25,000 unit in 500 mls @ 20 mls/hr IV CONT FLORINDA; Protocol Last Titration: 11/26/22 05:35 Dose: 0 units/hr, 0 mls/hr Documented By: Admin: 11/26/22 01:18 Dose: 1,000 units/hr, 20 mls/hr Documented By: YASH Metoprolol Tartrate (Metoprolol Ir 25 Mg Tablet) 25 mg PO NOW ONE Stop: 11/26/22 01:31 Last Admin: 11/26/22 01:39 Dose: 25 mg Documented By: RONNY Nitroglycerin (Nitroglycerin 0.4 Mg Sl Tab) 0.4 mg SL [id number] PRN PRN Reason: Chest Pain Last Admin: 11/25/22 20:28 Dose: 0.4 mg Documented By: MIGUEL Vital Signs Vital signs: Vital Signs - 8 hr 11/25/22 23:30 11/26/22 00:00 11/26/22 00:03 Pulse Rate 67 69 69 Respiratory Rate Blood Pressure Pulse Oximetry 96 96 97 Oxygen Delivery Method 11/26/22 00:03 11/26/22 00:30 11/26/22 01:00 Pulse Rate 61 Respiratory Rate Blood Pressure 138/86 139/70 Pulse Oximetry 96 Oxygen Delivery Method Room Air 11/26/22 01:00 11/26/22 01:30 11/26/22 02:00 Pulse Rate 66 65 Respiratory Rate Blood Pressure 131/71 Pulse Oximetry 95 96 Oxygen Delivery Method Room Air 11/26/22 02:00 11/26/22 02:30 11/26/22 03:00 Pulse Rate 62 62 Respiratory Rate Blood Pressure 133/76 Pulse Oximetry 96 94 Oxygen Delivery Method 11/26/22 03:00 11/26/22 03:30 11/26/22 04:00 Pulse Rate 62 61 74 Respiratory Rate 16 17 17 Blood Pressure Pulse Oximetry 97 96 95 Oxygen Delivery Method 11/26/22 04:01 11/26/22 04:01 11/26/22 04:30 Pulse Rate 69 59 L Respiratory Rate 17 16 Blood Pressure 150/81 H Pulse Oximetry 98 96 Oxygen Delivery Method 11/26/22 05:00 11/26/22 05:00 11/26/22 05:30 Pulse Rate 65 Respiratory Rate 13 Blood Pressure 111/75 128/76 Pulse Oximetry 95 Oxygen Delivery Method 11/26/22 05:30 Pulse Rate 65 Respiratory Rate 18 Blood Pressure Pulse Oximetry 96 Oxygen Delivery Method MDM - Chest Pain <Marizol Echo, DO - Last Filed: 11/26/22 07:13> Lab Data 11/25/22 08:56 11/25/22 08:56 Labs: Lab Results 11/25/22 11/25/22 11/25/22 Range/Units 08:56 08:56 08:56 WBC 6.2 (4.5-11.0) X10^3/uL RBC 5.22 (4.5-5.9) X10^6/uL Hgb 15.3 (13.5-17.5) g/dL Hct 44.4 (41-53) % MCV 84.9 (80-100) fL MCH 29.2 (26-34) PG MCHC 34.4 (30-36) % RDW 12.9 (11.6-14.8) % Plt Count 247 (150-400) X10^3/uL Neut % (Auto) 66.0 (50-75) % Lymph % (Auto) 22.2 L (25-40) % [place] % (Auto) 6.5 (3-14) % Eos % (Auto) 3.8 (2-4) % Baso % (Auto) 1.5 (0-2) % Neut # (Auto) 4100 (3125-0924) /uL Lymph # (Auto) 1400 (9500-8576) /uL [place] # (Auto) 400 (0-900) /uL Eos # (Auto) 200 (0-450) /uL Baso # (Auto) 100 (0-100) /uL PT 13.1 H (10.1-12.7) SECONDS INR 1.1 (0.9-1.3) APTT 32 (26-36) SECONDS Sodium 141 (137-145) mmol/L Potassium 3.8 (3.4-5.1) mmol/L Chloride 105 (98-107) mmol/L Carbon Dioxide 30 (22-32) mmol/L BUN 17 (9-20) mg/dL Creatinine 0.97 (0.66-1.25) mg/dL Estimated GFR > 60 (>60) mL/min BUN/Creatinine Ratio 17.5 (6-22) Glucose 99 (70-100) mg/dL Calcium 8.7 (8.4-10.2) mg/dL Magnesium 2.3 (1.6-2.3) mg/dL Total Bilirubin 0.8 (0.2-1.3) mg/dL AST 27 (17-59) IU/L ALT 30 (<50) IU/L Alkaline Phosphatase 120 (38-126) U/L Total Creatine Kinase 110 (55-170) U/L CK-MB (CK-2) 0.38 (<2.37) ng/mL CK-MB (CK-2) Rel Index 0.3 L (1.5-5.0) % Troponin I < 0.012 (0.01-0.034) ng/mL Total Protein 8.3 H (6.3-8.2) g/dL Albumin 4.4 (3.5-5.0) g/dL Globulin 3.9 (1.7-4.1) g/dL Albumin/Globulin Ratio 1.1 (1.0-2.8) Lipase 301 H (23-300) U/L SARS-CoV-2 (PCR) (Negative) 11/25/22 11/25/22 11/25/22 Range/Units 09:27 10:46 13:12 WBC (4.5-11.0) X10^3/uL RBC (4.5-5.9) X10^6/uL Hgb (13.5-17.5) g/dL Hct (41-53) % MCV (80-100) fL MCH (26-34) PG MCHC (30-36) % RDW (11.6-14.8) % Plt Count (150-400) X10^3/uL Neut % (Auto) (50-75) % Lymph % (Auto) (25-40) % [place] % (Auto) (3-14) % Eos % (Auto) (2-4) % Baso % (Auto) (0-2) % Neut # (Auto) (2825-5038) /uL Lymph # (Auto) (7801-2312) /uL [place] # (Auto) (0-900) /uL Eos # (Auto) (0-450) /uL Baso # (Auto) (0-100) /uL PT (10.1-12.7) SECONDS INR (0.9-1.3) APTT (26-36) SECONDS Sodium (137-145) mmol/L Potassium (3.4-5.1) mmol/L Chloride (98-107) mmol/L Carbon Dioxide (22-32) mmol/L BUN (9-20) mg/dL Creatinine (0.66-1.25) mg/dL Estimated GFR (>60) mL/min BUN/Creatinine Ratio (6-22) Glucose (70-100) mg/dL Calcium (8.4-10.2) mg/dL Magnesium (1.6-2.3) mg/dL Total Bilirubin (0.2-1.3) mg/dL AST (17-59) IU/L ALT (<50) IU/L Alkaline Phosphatase (38-126) U/L Total Creatine Kinase (55-170) U/L CK-MB (CK-2) (<2.37) ng/mL CK-MB (CK-2) Rel Index (1.5-5.0) % Troponin I 0.042 H < 0.012 (0.01-0.034) ng/mL Total Protein (6.3-8.2) g/dL Albumin (3.5-5.0) g/dL Globulin (1.7-4.1) g/dL Albumin/Globulin Ratio (1.0-2.8) Lipase (23-300) U/L SARS-CoV-2 (PCR) Negative (Negative) 11/25/22 Range/Units 20:28 WBC (4.5-11.0) X10^3/uL RBC (4.5-5.9) X10^6/uL Hgb (13.5-17.5) g/dL Hct (41-53) % MCV (80-100) fL MCH (26-34) PG MCHC (30-36) % RDW (11.6-14.8) % Plt Count (150-400) X10^3/uL Neut % (Auto) (50-75) % Lymph % (Auto) (25-40) % [place] % (Auto) (3-14) % Eos % (Auto) (2-4) % Baso % (Auto) (0-2) % Neut # (Auto) (3850-3290) /uL Lymph # (Auto) (3737-7138) /uL [place] # (Auto) (0-900) /uL Eos # (Auto) (0-450) /uL Baso # (Auto) (0-100) /uL PT (10.1-12.7) SECONDS INR (0.9-1.3) APTT (26-36) SECONDS Sodium (137-145) mmol/L Potassium (3.4-5.1) mmol/L Chloride (98-107) mmol/L Carbon Dioxide (22-32) mmol/L BUN (9-20) mg/dL Creatinine (0.66-1.25) mg/dL Estimated GFR (>60) mL/min BUN/Creatinine Ratio (6-22) Glucose (70-100) mg/dL Calcium (8.4-10.2) mg/dL Magnesium (1.6-2.3) mg/dL Total Bilirubin (0.2-1.3) mg/dL AST (17-59) IU/L ALT (<50) IU/L Alkaline Phosphatase (38-126) U/L Total Creatine Kinase 84 (55-170) U/L CK-MB (CK-2) TNP (<2.37) ng/mL CK-MB (CK-2) Rel Index TNP (1.5-5.0) % Troponin I < 0.012 (0.01-0.034) ng/mL Total Protein (6.3-8.2) g/dL Albumin (3.5-5.0) g/dL Globulin (1.7-4.1) g/dL Albumin/Globulin Ratio (1.0-2.8) Lipase (23-300) U/L SARS-CoV-2 (PCR) (Negative) Imaging Data Chest x-ray: Radiologist's Impression: PROCEDURE:? XR CHEST 1V ? INDICATIONS:? chest pain ? TECHNIQUE:? One view of the chest was acquired.? ? COMPARISON:? [facility], CR, XR CHEST 1V, 04/05/2020, 11:38. ? FINDINGS:? ? Surgical changes and devices:? None.? ? Lungs and pleura:? Lungs are clear.? No pleural effusions or pneumothorax.? ? Mediastinum:? Mediastinal contours appear normal.? Heart size is normal.? ? Bones and chest wall:? No suspicious bony lesions.? Overlying soft tissues appear unremarkable.? ? IMPRESSION:? No evidence acute pulmonary process. ? ? ? Dictated by: Kole Waddell M.D. on 11/25/2022 at 9:00 ? ? ECHO: Radiologist's Impression: [facility]? +---------+ : ? :? [address] ? : ? : : ? :? [place], [place] ? : ? : : ? :? [address] ? : ? : : ? : ? Phone: [phone] ? : +---------[phone]? [phone]? +---------+ ? Echocardiogram Report + + :Name: ALTAGRACIA PERALES ? Study Date: 11/25/2022? Height: 68 in ? [id number] ? ReadingLocation:? Weight: 180 lb? : : ? Gender: Male? BSA: 2.0 m2 ? ? : :: 1980? Age: 42 yrs ? BP: 135/102 mmHg: :Reason For Study: CHEST PAIN ? : :Ordering Physician: ECHO, ? : :MARIZOL ? Performed By: JUDE MONROE? : :Referring: MARIZOL BARRY ? : + + Interpretation Summary The ejection fraction is estimated to be 55-60%. There are no obvious focal wall motion abnormalities noted but poor endocardial definition reduces the sensitivity for the detection of such. Diastolic parameters suggest probable normal left ventricular diastolic function and normal filling pressures. The right ventricular systolic function is normal. Pulmonary artery pressures cannot be estimated because of the lack of a measurable TR jet velocity. No significant valvular abnormality. ? Procedure: ? A two-dimensional transthoracic echocardiogram with color flow and Doppler was performed. The study quality was technically adequate. There is no prior echocardiogram noted for this patient. The patient was in sinus rhythm with heart rates between 67-80 bpm during the exam. Left Ventricle: ? The left ventricle is normal in size. There is normal left ventricular wall thickness. Left ventricular systolic function is normal. The ejection fraction is estimated to be 55-60%. There are no obvious focal wall motion abnormalities noted but poor endocardial definition reduces the sensitivity for the detection of such. Diastolic parameters suggest probable normal left ventricular diastolic function and normal filling pressures. Right Ventricle: ? The right ventricle is normal in size, thickness and function. The right ventricular systolic function is normal. Atria: ? The left atrial size is normal. The right atrium is normal in size. There is no Doppler evidence for an interatrial shunt. Mitral Valve: ? The mitral valve is normal in structure and function. There is mild mitral regurgitation. Aortic Valve: ? The aortic valve opens well. The aortic valve is trileaflet. There is no hemodynamically significant valvular aortic stenosis. No aortic regurgitation is present. Tricuspid Valve: ? The tricuspid valve is normal in structure and function. No tricuspid regurgitation. Pulmonary artery pressures cannot be estimated because of the lack of a measurable TR jet velocity. Pulmonic Valve: ? The pulmonic valve is normal in structure and function. There is trace pulmonic regurgitation. Great Vessels: ? The aortic root is normal size. The ascending aorta is normal in size. The IVC was not well visualized secondary to technical limitations making central venous pressures difficult to estimate. Pericardium/ Pleura ? There is no pericardial effusion. There is no pleural effusion. ? MMode/2D Measurements & Calculations LVIDd: 4.6 cm? LVOT diam: 1.9 cm LVIDs: 3.1 cm? Ao root diam: 3.1 cm FS: 32.6 % ? asc Aorta Diam: 2.9 cm IVSd: 0.80 cm? Ao Arch Diam (Prox Trans): 2.7 cm LVPWd: 0.90 cm LV ludwig. diameter/BSA (cm/m^2): 2.4 LV sys. diameter/BSA (cm/m^2): 1.6 ? LA A2 area: 13.0 cm2 ? RA long axis: 3.6 cm LA A4 area: 11.4 cm2 LA length (vol): 4.3 cm LA vol: 29.0 ml LA vol index: 14.8 ml/m2 ? LVLs ap4: 6.3 cm ? LVLd ap2: 8.2 cm ? LVLs ap2: 7.0 cm ? TAPSE_phl: 2.0 cm ? Doppler Measurements & Calculations Ao V2 max: 134.0 cm/sec? LVOT Max [place]: 99.2 cm/sec Ao V2 mean: 102.0 cm/sec ? LV V1 max P.9 mmHg Ao max P.2 mmHg? LV V1 VTI: 19.4 cm Ao mean P.0 mmHg ? ALEX(I,D): 2.1 cm2 Ao V2 VTI: 26.8 cm ? ALEX(V,D): 2.1 cm2 ? sev ratio: 0.72 ? LAEX indexed to BSA (cm^2/m^2): 1.1 ? MV E max gorge: 72.0 cm/sec? PA V2 max: 91.8 cm/sec MV A max gorge: 59.6 cm/sec? PA V2 mean: 70.9 cm/sec MV E/A: 1.2? PA mean P.0 mmHg Med Peak E' [place]orge: 9.5 cm/sec? PA pr(Accel): 26.8 mmHg E/E' med: 7.6 Lat Peak E' [place]orge: 13.2 cm/sec E/E' lat: 5.5 E/e' average: 6.5 MV dec time: 0.22 sec ? SV(LVOT): 55.0 ml? AV VR_phl: 0.74 ? ALEX(VTI)/BSA_phl: 1.1 ? MV P1/2t-pr_phl: 64.0 msec ? Reading Physician:PM ECG Data Interpretation: Normal sinus rhythm rate 81 CO interval 138 QRS [address] changes T-wave inversion noted in lead 3 similar to previous EKG 04/05/2020 MDM Narrative Medical decision making narrative: Patient has history of hypertension hyperlipidemia presenting today with chest pain. Chest pain started yesterday it is definitely exertional and better with rest. He has a heart score of 5 symptoms are certainly concerning for acute coronary syndrome. Initial troponin is negative repeat troponin is 0.04 2-1/3 troponin is again undetectable. Dr. Handy on-call cardiology updated on patient's symptoms test results recommends that patient be transferred for further cardiac evaluations symptoms are certainly concerning. Recommends getting an echo if possible in the ED to look for any sort of congestive heart failure or wall motion abnormalities Echo is negative for any wall motion abnormality. I checked on patient again he is started have some recurrent chest discomfort. Critical bed shortage patient has negative troponin no EKG changes but concerning symptoms. Patient signed out to Dr. Jamison for further management [[id number]] (Shaheen) Patient received in sign out from [Echo]. I have reviewed the clinical course and performed an independent history and physical exam. Patient has had a few occurrences of chest pain while at rest with radiation into his left shoulder, these occurrences were brief and resolved with nitro. He did have a very brief, subtle change in his EKG during 1 of the episodes of his pain in which there was about 1/2 mm of elevation in the ST segments of leads 1 and aVL and a flattening of the normally concave ST segment in the lateral precordial leads. This normalized once his pain was resolved and treated with nitro. There have been no recurrences. 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 I have discussed with cardiology at [facility] in [place] (Dr. Shields) happy to see in consultation. Agrees with plan. Requests admission to hospitalist service. Dr. Donato (hospitalist) happy to accept at [facility]. Bed is ready. ALS unit contacted <David Jamison DO - Last Filed: 11/26/22 05:15> Lab Data Labs: Lab Results 11/25/22 11/25/22 11/25/22 Range/Units 08:56 08:56 08:56 WBC 6.2 (4.5-11.0) X10^3/uL RBC 5.22 (4.5-5.9) X10^6/uL Hgb 15.3 (13.5-17.5) g/dL Hct 44.4 (41-53) % MCV 84.9 (80-100) fL MCH 29.2 (26-34) PG MCHC 34.4 (30-36) % RDW 12.9 (11.6-14.8) % Plt Count 247 (150-400) X10^3/uL Neut % (Auto) 66.0 (50-75) % Lymph % (Auto) 22.2 L (25-40) % [place] % (Auto) 6.5 (3-14) % Eos % (Auto) 3.8 (2-4) % Baso % (Auto) 1.5 (0-2) % Neut # (Auto) 4100 (2389-6630) /uL Lymph # (Auto) 1400 (7317-9749) /uL [place] # (Auto) 400 (0-900) /uL Eos # (Auto) 200 (0-450) /uL Baso # (Auto) 100 (0-100) /uL PT 13.1 H (10.1-12.7) SECONDS INR 1.1 (0.9-1.3) APTT 32 (26-36) SECONDS Sodium 141 (137-145) mmol/L Potassium 3.8 (3.4-5.1) mmol/L Chloride 105 (98-107) mmol/L Carbon Dioxide 30 (22-32) mmol/L BUN 17 (9-20) mg/dL Creatinine 0.97 (0.66-1.25) mg/dL Estimated GFR > 60 (>60) mL/min BUN/Creatinine Ratio 17.5 (6-22) Glucose 99 (70-100) mg/dL Calcium 8.7 (8.4-10.2) mg/dL Magnesium 2.3 (1.6-2.3) mg/dL Total Bilirubin 0.8 (0.2-1.3) mg/dL AST 27 (17-59) IU/L ALT 30 (<50) IU/L Alkaline Phosphatase 120 (38-126) U/L Total Creatine Kinase 110 (55-170) U/L CK-MB (CK-2) 0.38 (<2.37) ng/mL CK-MB (CK-2) Rel Index 0.3 L (1.5-5.0) % Troponin I < 0.012 (0.01-0.034) ng/mL Total Protein 8.3 H (6.3-8.2) g/dL Albumin 4.4 (3.5-5.0) g/dL Globulin 3.9 (1.7-4.1) g/dL Albumin/Globulin Ratio 1.1 (1.0-2.8) Lipase 301 H (23-300) U/L SARS-CoV-2 (PCR) (Negative) 11/25/22 11/25/22 11/25/22 Range/Units 09:27 10:46 13:12 WBC (4.5-11.0) X10^3/uL RBC (4.5-5.9) X10^6/uL Hgb (13.5-17.5) g/dL Hct (41-53) % MCV (80-100) fL MCH (26-34) PG MCHC (30-36) % RDW (11.6-14.8) % Plt Count (150-400) X10^3/uL Neut % (Auto) (50-75) % Lymph % (Auto) (25-40) % [place] % (Auto) (3-14) % Eos % (Auto) (2-4) % Baso % (Auto) (0-2) % Neut # (Auto) (0684-8855) /uL Lymph # (Auto) (2057-6921) /uL [place] # (Auto) (0-900) /uL Eos # (Auto) (0-450) /uL Baso # (Auto) (0-100) /uL PT (10.1-12.7) SECONDS INR (0.9-1.3) APTT (26-36) SECONDS Sodium (137-145) mmol/L Potassium (3.4-5.1) mmol/L Chloride (98-107) mmol/L Carbon Dioxide (22-32) mmol/L BUN (9-20) mg/dL Creatinine (0.66-1.25) mg/dL Estimated GFR (>60) mL/min BUN/Creatinine Ratio (6-22) Glucose (70-100) mg/dL Calcium (8.4-10.2) mg/dL Magnesium (1.6-2.3) mg/dL Total Bilirubin (0.2-1.3) mg/dL AST (17-59) IU/L ALT (<50) IU/L Alkaline Phosphatase (38-126) U/L Total Creatine Kinase (55-170) U/L CK-MB (CK-2) (<2.37) ng/mL CK-MB (CK-2) Rel Index (1.5-5.0) % Troponin I 0.042 H < 0.012 (0.01-0.034) ng/mL Total Protein (6.3-8.2) g/dL Albumin (3.5-5.0) g/dL Globulin (1.7-4.1) g/dL Albumin/Globulin Ratio (1.0-2.8) Lipase (23-300) U/L SARS-CoV-2 (PCR) Negative (Negative) 11/25/22 Range/Units 20:28 WBC (4.5-11.0) X10^3/uL RBC (4.5-5.9) X10^6/uL Hgb (13.5-17.5) g/dL Hct (41-53) % MCV (80-100) fL MCH (26-34) PG MCHC (30-36) % RDW (11.6-14.8) % Plt Count (150-400) X10^3/uL Neut % (Auto) (50-75) % Lymph % (Auto) (25-40) % [place] % (Auto) (3-14) % Eos % (Auto) (2-4) % Baso % (Auto) (0-2) % Neut # (Auto) (2515-6433) /uL Lymph # (Auto) (0310-1069) /uL [place] # (Auto) (0-900) /uL Eos # (Auto) (0-450) /uL Baso # (Auto) (0-100) /uL PT (10.1-12.7) SECONDS INR (0.9-1.3) APTT (26-36) SECONDS Sodium (137-145) mmol/L Potassium (3.4-5.1) mmol/L Chloride (98-107) mmol/L Carbon Dioxide (22-32) mmol/L BUN (9-20) mg/dL Creatinine (0.66-1.25) mg/dL Estimated GFR (>60) mL/min BUN/Creatinine Ratio (6-22) Glucose (70-100) mg/dL Calcium (8.4-10.2) mg/dL Magnesium (1.6-2.3) mg/dL Total Bilirubin (0.2-1.3) mg/dL AST (17-59) IU/L ALT (<50) IU/L Alkaline Phosphatase (38-126) U/L Total Creatine Kinase 84 (55-170) U/L CK-MB (CK-2) TNP (<2.37) ng/mL CK-MB (CK-2) Rel Index TNP (1.5-5.0) % Troponin I < 0.012 (0.01-0.034) ng/mL Total Protein (6.3-8.2) g/dL Albumin (3.5-5.0) g/dL Globulin (1.7-4.1) g/dL Albumin/Globulin Ratio (1.0-2.8) Lipase (23-300) U/L SARS-CoV-2 (PCR) (Negative) [facility] Narrative Medical decision making narrative: Patient has history of hypertension hyperlipidemia presenting today with chest pain. Chest pain started yesterday it is definitely exertional and better with rest. He has a heart score of 5 symptoms are certainly concerning for acute coronary syndrome. Initial troponin is negative repeat troponin is 0.04 2-1/3 troponin is again undetectable. Dr. Handy on-call cardiology updated on patient's symptoms test results recommends that patient be transferred for further cardiac evaluations symptoms are certainly concerning. Recommends getting an echo if possible in the ED to look for any sort of congestive heart failure or wall motion abnormalities Echo is negative for any wall motion abnormality. I checked on patient again he is started have some recurrent chest discomfort. Critical bed shortage patient has negative troponin no EKG changes but concerning symptoms. Patient signed out to Dr. Jamison for further management [1900] (Shaheen) Patient received in sign out from [Echo]. I have reviewed the clinical course and performed an independent history and physical exam. Patient has had a few occurrences of chest pain while at rest with radiation into his left shoulder, these occurrences were brief and resolved with nitro. He did have a very brief, subtle change in his EKG during 1 of the episodes of his pain in which there was about 1/2 mm of elevation in the ST segments of leads 1 and aVL and a flattening of the normally concave ST segment in the lateral precordial leads. This normalized once his pain was resolved and treated with nitro. There have been no recurrences. 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 I have discussed with cardiology at [facility] in [place] (Dr. Shields) happy to see in consultation. Agrees with plan. Requests admission to hospitalist service. Dr. Donato (hospitalist) happy to accept at [facility]. Bed is ready. ALS unit contacted <David Jamison, DO - Last Filed: 11/26/22 05:15> Critical Care Time Critical Care Time: Yes Total Critical Care Time: 45 Attestation: The high probability of a clinically significant, sudden or life threatening deterioration of the [45] system(s) required my full and direct attention, intervention and personal management. The aggregate critical care time was [45] minutes. This time is in addition to time spent performing reported procedures but includes the following: [x] Data Review and interpretation [x] Patient assessment and monitoring of vital signs [x] Documentation [x] Medication orders and management Discharge Plan Departure Patient Disposition: Xfer [facility] Clinical Impression: Angina pectoris, unstable Prescriptions: No Action atorvastatin [Lipitor] 20 MG tablet 20 mg PO QPM Qty: 0 metoprolol tartrate 25 MG tablet 25 mg PO DAILY Qty: 0 valacyclovir 500 mg tablet 500 mg PO DIRECTED PRN (Reason: Cold Sores) disulfiram [Antabuse] 500 mg Tablet 500 mg PO DAILY methylphenidate HCl 10 mg tablet extended release 10 mg PO BID naproxen [Naprosyn] 500 mg tablet 500 mg PO BID PRN (Reason: pain) Qty: 20 0RF ondansetron HCl [Zofran] 4 mg tablet 4 mg PO Q6H PRN (Reason: nausea and vomiting) Qty: 10 0RF alprazolam 0.5 mg tablet 1.5 mg PO Q8H PRN (Reason: Anxiety) hydrocodone-acetaminophen [[place]] 5-325 mg tablet 1 tab PO Q6H PRN (Reason: pain) Qty: 10 0RF cetirizine 10 mg tablet 10 mg PO DAILY PRN (Reason: allergy symptoms) Qty: 30 0RF paroxetine HCl 20 mg tablet 30 mg PO DAILY albuterol sulfate [Ventolin HFA] 90 MCG/PUFF HFA aerosol inhaler 0 puff INH Q4HP PRN (Reason: Shortness Of Breath) lisinopril 10 mg tablet 10 mg PO DAILY Qty: 30 0RF Referrals: Miscellaneous,Doctor, MD [Primary Care Provider] -
[2022-11-25 11:16] LABS: Troponin I 0.042 ng/mL (0.01-0.034)
[2022-11-25 13:53] LABS: Troponin I < 0.012 ng/mL (0.01-0.034)
--- NOTE | 2022-11-25 14:59 | DI.ECHO.S_ITS ---
[facility] +---------+ : : [address] : : : : [id number] : : : : Phone: [phone]+ Echocardiogram Report + + :Name: ALTAGRACIA PERALES Study Date: 11/25/2022 Height: 68 in : :[facility] ReadingLocation: Weight: 180 lb : : Gender: Male BSA: 2.0 m2 : :: 1980 Age: 42 yrs BP: 135/102 mmHg: :Reason For Study: CHEST PAIN : :Ordering Physician: ASHA, : :ERASTO Performed By: JUDE MONROE : :Referring: ERASTO BARRY : + + Interpretation Summary The ejection fraction is estimated to be 55-60%. There are no obvious focal wall motion abnormalities noted but poor endocardial definition reduces the sensitivity for the detection of such. Diastolic parameters suggest probable normal left ventricular diastolic function and normal filling pressures. The right ventricular systolic function is normal. Pulmonary artery pressures cannot be estimated because of the lack of a measurable TR jet velocity. No significant valvular abnormality. Procedure: A two-dimensional transthoracic echocardiogram with color flow and Doppler was performed. The study quality was technically adequate. There is no prior echocardiogram noted for this patient. The patient was in sinus rhythm with heart rates between 67-80 bpm during the exam. Left Ventricle: The left ventricle is normal in size. There is normal left ventricular wall thickness. Left ventricular systolic function is normal. The ejection fraction is estimated to be 55-60%. There are no obvious focal wall motion abnormalities noted but poor endocardial definition reduces the sensitivity for the detection of such. Diastolic parameters suggest probable normal left ventricular diastolic function and normal filling pressures. Right Ventricle: The right ventricle is normal in size, thickness and function. The right ventricular systolic function is normal. Atria: The left atrial size is normal. The right atrium is normal in size. There is no Doppler evidence for an interatrial shunt. Mitral Valve: The mitral valve is normal in structure and function. There is mild mitral regurgitation. Aortic Valve: The aortic valve opens well. The aortic valve is trileaflet. There is no hemodynamically significant valvular aortic stenosis. No aortic regurgitation is present. Tricuspid Valve: The tricuspid valve is normal in structure and function. No tricuspid regurgitation. Pulmonary artery pressures cannot be estimated because of the lack of a measurable TR jet velocity. Pulmonic Valve: The pulmonic valve is normal in structure and function. There is trace pulmonic regurgitation. Great Vessels: The aortic root is normal size. The ascending aorta is normal in size. The IVC was not well visualized secondary to technical limitations making central venous pressures difficult to estimate. Pericardium/ Pleura There is no pericardial effusion. There is no pleural effusion. MMode/2D Measurements & Calculations LVIDd: 4.6 cm LVOT diam: 1.9 cm LVIDs: 3.1 cm Ao root diam: 3.1 cm FS: 32.6 % asc Aorta Diam: 2.9 cm IVSd: 0.80 cm Ao Arch Diam (Prox Trans): 2.7 cm LVPWd: 0.90 cm LV ludwig. diameter/BSA (cm/m^2): 2.4 LV sys. diameter/BSA (cm/m^2): 1.6 LA A2 area: 13.0 cm2 RA long axis: 3.6 cm LA A4 area: 11.4 cm2 LA length (vol): 4.3 cm LA vol: 29.0 ml LA vol index: 14.8 ml/m2 LVLs ap4: 6.3 cm LVLd ap2: 8.2 cm LVLs ap2: 7.0 cm TAPSE_phl: 2.0 cm Doppler Measurements & Calculations Ao V2 max: 134.0 cm/sec LVOT Max Gorge: 99.2 cm/sec Ao V2 mean: 102.0 cm/sec LV V1 max P.9 mmHg Ao max P.2 mmHg LV V1 VTI: 19.4 cm Ao mean P.0 mmHg ALEX(I,D): 2.1 cm2 Ao V2 VTI: 26.8 cm ALEX(V,D): 2.1 cm2 sev ratio: 0.72 ALEX indexed to BSA (cm^2/m^2): 1.1 MV E max gorge: 72.0 cm/sec PA V2 max: 91.8 cm/sec MV A max gorge: 59.6 cm/sec PA V2 mean: 70.9 cm/sec MV E/A: 1.2 PA mean P.0 mmHg Med Peak E' Gorge: 9.5 cm/sec PA pr(Accel): 26.8 mmHg E/E' med: 7.6 Lat Peak E' Gorge: 13.2 cm/sec E/E' lat: 5.5 E/e' average: 6.5 MV dec time: 0.22 sec SV(LVOT): 55.0 ml AV VR_phl: 0.74 ALEX(VTI)/BSA_phl: 1.1 MV P1/2t-pr_phl: 64.0 msec Reading Physician:PM
[2022-11-25] MEDS: NITROGLYCERIN 0.4 MG SL TAB SL (20:28)
--- NOTE | 2022-11-25 20:36 | PC.NURSE ---
pt c/o chest pressure 6/10, if 10 was an elephant sitting on his chest. pt given first dose of nitro SL. pt reports pressure is now at a 0/10. pt states his hands feel like they are swollen and puffy, he states they were like this prior to med administration, he just forgot to tell me.
[2022-11-25 20:51] LABS: Creatine Kinase 84 U/L (55-170)
[2022-11-25 21:05] LABS: Troponin I < 0.012 ng/mL (0.01-0.034)
--- NOTE | 2022-11-25 23:15 | PC.NURSE ---
2315 Pt on waitlist with [facility] and Jany Maradiaga. Prov thinks Possible bed in the AM c/b @[phone] 11/26/22
[2022-11-26] VITALS (14 sets, daily range): BP systolic 111–150; BP diastolic 70–86; PULSE 59–74; RESP 13–18; O2SAT 94–98
[2022-11-26] MEDS: HEPARIN DRIP 25,000 UNIT/500 ML IV.SOLN 20 UNIT IV (01:18)
[2022-11-26] MEDS: HEPARIN 5,000 UNIT/ML VIAL 5000 UNIT IV (01:22)
[2022-11-26] MEDS: METOPROLOL IR 25 MG TABLET PO (01:39)
[2022-11-26] MEDS: ATORVASTATIN 20 MG TABLET 80 MG PO (01:39)
--- NOTE | 2022-11-26 02:09 | PC.NURSE ---
Accepted @ Prov Hiren Avalos [phone] Jany luong [phone]
== END 2022-11-26 05:36 | disposition short-term general hospital (02) ==
PROVIDERS: Emergency Medicine; Emergency Provider Emergency Medicine; Family Provider Family Medicine
DX: I20.0 Unstable angina (principal); I10 Essential (primary) hypertension; Z20.822 Contact with and (suspected) exposure to COVID-19
CPT/HCPCS: 36415; 71045; 80053; 82550; 82553; 83690; 83735; 84484; 85025; 85610; 85730; 87635; 93005; 93306; 96365; 96366; 96375; 99285; C9803; J1644

== ENCOUNTER 2022-11-29 18:56 | Emergency (ER) | payer OTHER, MEDICAID, SELFPAY ==
[2022-11-29 19:06] VITALS: BP 171/110; PULSE 109; RESP 16; TEMP 37.1; O2SAT 97; BMI 26.6
--- NOTE | 2022-11-29 22:26 | ED_ITS ---
HPI - Extremity Problem General Chief complaint: Extremity Problem,Nontraumatic Stated complaint: Pain in R arm after cardio surgery Time Seen by Provider: 11/29/22 22:05 Source: patient Mode of arrival: Ambulatory History of Present Illness HPI Narrative: Patient is a 42-year-old male who recently was seen here in this emergency department and transferred to an outside facility secondary to concern for ACS. He had a cardiac catheterization with the right radial artery approach. He was discharged from the hospital 2 days ago. He arrives in the emergency department today because he has been having pain in his right arm just distal to his elbow and also swelling to his right hand. He stated that he was unsure as to whether not this was normal in this situation and wanted to have it evaluated. Related Data Home Medications Medication Instructions Recorded Confirmed atorvastatin 20 mg tablet (Lipitor) 20 mg PO QPM ##0 01/19/17 11/26/19 metoprolol tartrate 25 mg tablet 25 mg PO DAILY ##0 10/09/17 11/26/19 albuterol sulfate 90 mcg/actuation 0 puff INH Q4HP PRN Shortness Of 05/10/19 11/21/19 aerosol inhaler (Ventolin HFA) Breath paroxetine HCl 20 mg tablet 30 mg PO DAILY 05/10/19 11/26/19 valacyclovir 500 mg tablet 500 mg PO DIRECTED PRN Cold 07/22/19 11/21/19 Sores disulfiram 500 mg tablet (Antabuse) 500 mg PO DAILY 11/08/19 11/08/19 methylphenidate HCl 10 mg 10 mg PO BID 11/08/19 11/26/19 tablet,extended release alprazolam 0.5 mg tablet 1.5 mg PO Q8H PRN Anxiety 11/21/19 Previous Rx's Medication Instructions Recorded naproxen 500 mg tablet (Naprosyn) 500 mg PO BID PRN pain #20 tabs 11/08/19 ondansetron HCl 4 mg tablet 4 mg PO Q6H PRN nausea and 11/08/19 (Zofran) vomiting #10 tabs hydrocodone 5 mg-acetaminophen 325 1 tab PO Q6H PRN pain #10 tabs 11/26/19 mg tablet ([place]) lisinopril 10 mg tablet 10 mg PO DAILY #30 tabs 10/07/20 cetirizine 10 mg tablet 10 mg PO DAILY PRN allergy 03/16/22 symptoms #30 tabs Allergies Allergy/AdvReac Type Severity Reaction Status Date / Time amlodipine [AMLODIPINE] Allergy Unknown Verified 11/25/22 08:45 Review of Systems Constitutional Constitutional: Reports system reviewed and no additional complaints, except as documented Musculoskeletal Musculoskeletal: Reports system reviewed and no additional complaints, except as documented Integumentary/Breasts Skin/Breast: Reports system reviewed and no additional complaints, except as documented Neurologic Neurologic: Reports system reviewed and no additional complaints, except as documented Patient History Medical History Anxiety Hypertension Surgical History No significant past surgical history Social History marital status: unknown Smoking Status: Former smoker alcohol intake: current substance use type: marijuana Smoking Status: Former smoker alcohol intake frequency: holidays/special occasions only Substance Use Type: does not use Exam Initial Vital Signs Initial Vital Signs: Vital Signs Temperature 98.8 F 11/29/22 19:06 Pulse Rate 109 H 11/29/22 19:06 Respiratory Rate 16 11/29/22 19:06 Blood Pressure 171/110 H 11/29/22 19:06 Pulse Oximetry 97 11/29/22 19:06 Oxygen Delivery Method Room Air 11/29/22 19:06 Skin Other: Some bruising to the right AC consistent with a IV placement. Has a puncture wound to the right radial artery location that appears well without surrounding erythema. Neuro Sensory Exam: no sensory deficits noted Extrem Other: Patient does have swelling of his right forearm and right hand compared to the left. Does not extend above the elbow. It seems to be more localized on the volar aspect specifically in the proximal 1/3 of the forearm. His right wrist is slightly more swollen than the left and right hand slightly more swollen than the left. Course Orders Ordered: Discontinued Medications Ibuprofen (Ibuprofen 400 Mg Tablet) 800 mg PO NOW ONE Stop: 11/29/22 22:27 Last Admin: 11/29/22 22:33 Dose: 800 mg Documented By: MARIA DEL ROSARIO Vital Signs Vital signs: Vital Signs - 8 hr 11/29/22 22:34 Pulse Rate 91 H Respiratory Rate 16 Blood Pressure 162/95 H Pulse Oximetry 95 Oxygen Delivery Method Room Air MDM - Extremity (Nontraumatic) ECG Data Interpretation: Sinus tachycardia Ventricular rate 102 Normal axis Normal QRS Normal QTC No ST T wave changes MDM Narrative Medical decision making narrative: The puncture sites in his right arm appear well. There is no bleeding. No signs of infection. His compartments are soft. Low suspicion for cellulitis. Low suspicion for compartment syndrome. I do suspect that the swelling is related to his recent procedure however does not appear to be anything that n eeds any emergent intervention. Provided reassurance to the patient. He was given return precautions. He expressed understanding and agreement. Discharge Plan Departure Patient Disposition: Home Clinical Impression: Arm swelling Activity Restrictions/Additional Instructions: I do recommend you follow all of the postprocedure instructions given to you by the medical radiation therapist. I also recommend ice over your right arm. You can use Tylenol/ibuprofen for discomfort. Keep all of your scheduled medical appointments. Return to the emergency department for any new or worsening symptoms Prescriptions: No Action atorvastatin [Lipitor] 20 MG tablet 20 mg PO QPM Qty: 0 metoprolol tartrate 25 MG tablet 25 mg PO DAILY Qty: 0 valacyclovir 500 mg tablet 500 mg PO DIRECTED PRN (Reason: Cold Sores) disulfiram [Antabuse] 500 mg Tablet 500 mg PO DAILY methylphenidate HCl 10 mg tablet extended release 10 mg PO BID naproxen [Naprosyn] 500 mg tablet 500 mg PO BID PRN (Reason: pain) Qty: 20 0RF ondansetron HCl [Zofran] 4 mg tablet 4 mg PO Q6H PRN (Reason: nausea and vomiting) Qty: 10 0RF alprazolam 0.5 mg tablet 1.5 mg PO Q8H PRN (Reason: Anxiety) hydrocodone-acetaminophen [[place]] 5-325 mg tablet 1 tab PO Q6H PRN (Reason: pain) Qty: 10 0RF cetirizine 10 mg tablet 10 mg PO DAILY PRN (Reason: allergy symptoms) Qty: 30 0RF paroxetine HCl 20 mg tablet 30 mg PO DAILY albuterol sulfate [Ventolin HFA] 90 MCG/PUFF HFA aerosol inhaler 0 puff INH Q4HP PRN (Reason: Shortness Of Breath) lisinopril 10 mg tablet 10 mg PO DAILY Qty: 30 0RF Referrals: Miscellaneous,Doctor, MD [Primary Care Provider] - Stand Alone Forms: Patient Portal/API, Work Release Note
[2022-11-29] MEDS: IBUPROFEN 400 MG TABLET 800 MG PO (22:33)
[2022-11-29 22:34] VITALS: BP 162/95; PULSE 91; RESP 16; O2SAT 95
== END 2022-11-29 22:37 | disposition home or self-care (01) ==
PROVIDERS: Emergency Provider Emergency Medicine; Family Provider Family Medicine
DX: M79.89 Other specified soft tissue disorders (principal); Z86.79 Personal history of other diseases of the circulatory system
CPT/HCPCS: 93005; 99283

== ENCOUNTER 2023-07-18 14:00 | Emergency (ER) | payer OTHER, MEDICAID, SELFPAY ==
[2023-07-18 14:03] VITALS: BP 145/95; PULSE 96; RESP 16; TEMP 36.7; O2SAT 100; BMI 27.9
--- NOTE | 2023-07-18 17:48 | ED_ITS ---
HPI - Extremity Problem <Duran Pierce PA-C - Last Filed: 07/18/23 17:54> General Chief complaint: Extremity Problem,Nontraumatic Stated complaint: RT shoulder feels tight moving into neck Time Seen by Provider: 07/18/23 14:57 Source: patient Mode of arrival: Ambulatory History of Present Illness HPI Narrative: 43-year-old male with past medical history right-sided shoulder pain presents to the ED with acute on chronic right shoulder pain. Patient states that he has limited range of motion in the right arm due to the pain. Patient states he was diagnosed with bursitis several years ago. No new trauma reported. Patient states that when he lays on the right shoulder, he sometimes feels tingling in the right hand. Patient otherwise denies numbness, tingling, weakness. Patient has not taken any medications for the pain. Patient also states that he is asthmatic, does not have a nebulizer currently. Patient had COVID 2 months ago, following which he is had intermittent cough and wheezing. Patient denies wheezing currently. Patient denies fever, chills, chest pain, shortness of breath, nausea, vomiting. Related Data Home Medications Medication Instructions Recorded Confirmed atorvastatin 20 mg tablet (Lipitor) 20 mg PO QPM ##0 01/19/17 11/26/19 metoprolol tartrate 25 mg tablet 25 mg PO DAILY ##0 10/09/17 11/26/19 albuterol sulfate 90 mcg/actuation 0 puff INH Q4HP PRN Shortness Of 05/10/19 11/21/19 aerosol inhaler (Ventolin HFA) Breath paroxetine HCl 20 mg tablet 30 mg PO DAILY 05/10/19 11/26/19 valacyclovir 500 mg tablet 500 mg PO DIRECTED PRN Cold 07/22/19 11/21/19 Sores disulfiram 500 mg tablet (Antabuse) 500 mg PO DAILY 11/08/19 11/08/19 methylphenidate HCl 10 mg 10 mg PO BID 11/08/19 11/26/19 tablet,extended release alprazolam 0.5 mg tablet 1.5 mg PO Q8H PRN Anxiety 11/21/19 Previous Rx's Medication Instructions Recorded naproxen 500 mg tablet (Naprosyn) 500 mg PO BID PRN pain #20 tabs 11/08/19 ondansetron HCl 4 mg tablet 4 mg PO Q6H PRN nausea and 11/08/19 (Zofran) vomiting #10 tabs hydrocodone 5 mg-acetaminophen 325 1 tab PO Q6H PRN pain #10 tabs 11/26/19 mg tablet ([place]) lisinopril 10 mg tablet 10 mg PO DAILY #30 tabs 10/07/20 cetirizine 10 mg tablet 10 mg PO DAILY PRN allergy 03/16/22 symptoms #30 tabs albuterol sulfate 90 mcg/actuation 2 puff inhalation Q4-6H PRN 07/18/23 aerosol inhaler shortness of breath or wheezing #8.5 grams cyclobenzaprine 10 mg tablet 10 mg PO TID PRN muscle spasm 5 07/18/23 days #15 tabs Allergies Allergy/AdvReac Type Severity Reaction Status Date / Time amlodipine [AMLODIPINE] Allergy Unknown Verified 11/25/22 08:45 Review of Systems <Duran Pierce PA-C - Last Filed: 07/18/23 17:54> Constitutional Constitutional: Denies chills, Denies fatigue, Denies fever(s), Denies frequent falls, Denies lethargy and Denies weakness Eyes Eyes: Denies change in vision, Denies eye discharge, Denies irritation and Denies loss of vision ENT Ears, Nose, Mouth, and Throat: Denies change in voice, Denies dizziness, Denies neck pain, Denies sore throat and Denies throat swelling Cardiovascular Cardiovascular: Denies chest pain, Denies irregular heart rhythm, Denies lightheadedness, Denies palpitations, Denies dyspnea, Denies dyspnea on exertion and Denies orthopnea Respiratory Respiratory: Denies cough, Denies dyspnea, Denies dyspnea on exertion and Denies wheezing Gastrointestinal Gastrointestinal: Denies abdominal pain, Denies change in bowel habits, Denies diarrhea, Denies nausea and Denies vomiting Musculoskeletal Musculoskeletal: Denies neck pain and Denies numbness Comments: Right shoulder pain Integumentary/Breasts Skin/Breast: Denies pruritus, Denies erythema, Denies rash and Denies wounds Neurologic Neurologic: Denies behavioral changes, Denies confusion, Denies dizziness, Denies frequent falls, Denies loss of vision, Denies numbness and Denies weakness Psychiatric Psychiatric: Denies anxiety, Denies behavioral changes, Denies confusion, Denies depression, Denies homicidal ideation and Denies suicidal ideation Endocrine Endocrine: Denies fatigue, Denies flushing and Denies palpitations Hematologic/Lymphatic Hematologic/Lymphatic: Denies easy bruising Allergic/Immunologic Allergic/Immunologic: Denies urticaria, Denies throat swelling and Denies wheezing Patient History <Duran Pierce PA-C - Last Filed: 07/18/23 17:54> Medical History Hypertension Anxiety Surgical History No significant past surgical history Social History marital status: unknown Smoking Status: Former smoker alcohol intake: current substance use type: marijuana Smoking Status: Former smoker alcohol intake frequency: holidays/special occasions only Substance Use Type: does not use Exam <Duran Pierce PA-C - Last Filed: 07/18/23 17:54> Narrative Exam Narrative: Const General:?cooperative, healthy appearing and comfortable [facility] Head:?normal to inspection Ears:?hearing grossly normal bilaterally Nose:?external nose normal Face and sinus:?normal facial exam and sinuses nontender Mouth:?oral mucosae normal Throat:?posterior oropharynx normal Eyes General:?appearance normal, both eyes and all related structures Neck Neck:?normal visual inspection and no lymphadenopathy noted Resp Effort & Inspection:?normal respiratory effort Auscultation:?clear to auscultation bilaterally Cardio Rate:?regular rate Rhythm:?regular rhythm Musculoskeletal There is some muscular tenderness to palpation of right shoulder. No bony tenderness to palpation. Strength and sensation is intact. Very some limited range of motion in the right arm. Patient is neurovascularly intact. No bruising or deformities noted on exam. Neuro General:?patient alert, patient awake and patient oriented x3 Initial Vital Signs Initial Vital Signs: Vital Signs Temperature 98.1 F 07/18/23 14:03 Pulse Rate 96 H 07/18/23 14:03 Respiratory Rate 16 07/18/23 14:03 Blood Pressure 145/95 H 07/18/23 14:03 Pulse Oximetry 100 07/18/23 14:03 Oxygen Delivery Method Room Air 07/18/23 14:03 <Dylon Acosta MD - Last Filed: 07/18/23 18:04> Initial Vital Signs Initial Vital Signs: Vital Signs Temperature 98.1 F 07/18/23 14:03 Pulse Rate 96 H 07/18/23 14:03 Respiratory Rate 16 07/18/23 14:03 Blood Pressure 145/95 H 07/18/23 14:03 Pulse Oximetry 100 07/18/23 14:03 Oxygen Delivery Method Room Air 07/18/23 14:03 Course <Duran Pierce PA-C - Last Filed: 07/18/23 17:54> Vital Signs Vital signs: Vital Signs - 8 hr 07/18/23 14:03 Temperature 98.1 F Pulse Rate 96 H Respiratory Rate 16 Blood Pressure 145/95 H Pulse Oximetry 100 Oxygen Delivery Method Room Air <Dylon Acosta MD - Last Filed: 07/18/23 18:04> Vital Signs Vital signs: Vital Signs - 8 hr 07/18/23 14:03 Temperature 98.1 F Pulse Rate 96 H Respiratory Rate 16 Blood Pressure 145/95 H Pulse Oximetry 100 Oxygen Delivery Method Room Air MDM - Extremity (Nontraumatic) <Duran Pierce PA-C - Last Filed: 07/18/23 17:54> MDM Narrative Medical decision making narrative: 43-year-old male with past medical history right-sided shoulder pain presents to the ED with acute on chronic right shoulder pain. Patient's symptoms are consistent with acute on chronic shoulder pain. No new trauma, no bony tenderness or deformities. No imaging indicated at this time. Prescribed a muscle relaxant for the next few days. Recommend taking ibuprofen. Also prescribed albuterol nebulizer as rescue inhaler for asthma. Recommend follow up with PCP, PT for further evaluation and monitoring. ED return precautions discussed with patient. Patient verbalized understanding. Medical records reviewed: Yes Discharge Plan Departure Patient Disposition: Home Clinical Impression: Right shoulder pain Qualifiers: Chronicity: chronic Qualified Code(s): M25.511 - Pain in right shoulder Instructions: DI for Shoulder Pain Activity Restrictions/Additional Instructions: You were evaluated in the ED today for right-sided shoulder pain. It appears that your shoulder pain is due to a musculoskeletal sprain/strain, which will need follow-up with your PCP and possibly physical therapy for further evaluation and treatment. You were being prescribed Flexeril which is a muscle relaxant. You may also take ibuprofen 800 mg 3 times a day with food to treat the inflammation and pain. You were also being prescribed an albuterol inhaler since you have asthma. Return to the ED if you experience worsening symptoms, numbness, tingling, weakness. Prescriptions: New cyclobenzaprine 10 mg tablet 10 mg PO TID PRN (Reason: muscle spasm) 5 Days Qty: 15 0RF albuterol sulfate 90 mcg/actuation HFA aerosol inhaler 2 puff inhalation Q4-6H PRN (Reason: shortness of breath or wheezing) Qty: 8.5 0RF No Action atorvastatin [Lipitor] 20 MG tablet 20 mg PO QPM Qty: 0 metoprolol tartrate 25 MG tablet 25 mg PO DAILY Qty: 0 valacyclovir 500 mg tablet 500 mg PO DIRECTED PRN (Reason: Cold Sores) disulfiram [Antabuse] 500 mg Tablet 500 mg PO DAILY methylphenidate HCl 10 mg tablet extended release 10 mg PO BID naproxen [Naprosyn] 500 mg tablet 500 mg PO BID PRN (Reason: pain) Qty: 20 0RF ondansetron HCl [Zofran] 4 mg tablet 4 mg PO Q6H PRN (Reason: nausea and vomiting) Qty: 10 0RF alprazolam 0.5 mg tablet 1.5 mg PO Q8H PRN (Reason: Anxiety) hydrocodone-acetaminophen [[place]] 5-325 mg tablet 1 tab PO Q6H PRN (Reason: pain) Qty: 10 0RF cetirizine 10 mg tablet 10 mg PO DAILY PRN (Reason: allergy symptoms) Qty: 30 0RF paroxetine HCl 20 mg tablet 30 mg PO DAILY albuterol sulfate [Ventolin HFA] 90 MCG/PUFF HFA aerosol inhaler 0 puff INH Q4HP PRN (Reason: Shortness Of Breath) lisinopril 10 mg tablet 10 mg PO DAILY Qty: 30 0RF Referrals: Miscellaneous,Doctor, [Primary Care Provider] - Stand Alone Forms: Patient Portal/API, Work Release Note ED Sign-out <Dylon Acosta MD - Last Filed: 07/18/23 18:04> Cosign ED Attending [place] Attestation: I was immediately available in the department for consultation. ?This documentation has been reviewed and I agree with assessment and plan. Supervised by Dylon Acosta MD
== END 2023-07-18 15:18 | disposition home or self-care (01) ==
PROVIDERS: Emergency Provider Student in an Organized Health Care Education/Training Program; Family Provider Family Medicine
DX: M25.511 Pain in right shoulder (principal)
CPT/HCPCS: 99281

== ENCOUNTER 2023-11-07 23:02 | Emergency (ER) | payer OTHER, MEDICAID, SELFPAY ==
[2023-11-07 23:03] VITALS: BP 165/112; PULSE 149; RESP 12; TEMP 37.4; O2SAT 98; BMI 27.3
[2023-11-07 23:06] VITALS: PULSE 128; RESP 20
[2023-11-07 23:08] VITALS: BP 173/114; PULSE 126; RESP 21; O2SAT 97
[2023-11-07] MEDS: SODIUM CHLORIDE 0.9% 1,000 ML 1000 ML IV (23:29)
[2023-11-07 23:30] VITALS: PULSE 115; RESP 13; O2SAT 95
[2023-11-07] MEDS: DEXAMETHASONE 10 MG/ML VIAL IV (23:30)
[2023-11-07] MEDS: diphenhydrAMINE 50 MG/ML VIAL IV (23:30)
[2023-11-07 23:32] VITALS: BP 152/104; PULSE 111; RESP 10; O2SAT 95
[2023-11-07 23:40] LABS: Add Manual Diff / Slide Review NO; Basophils Absolute Auto 100 /uL (0-100); Basophils Percent Auto 0.8 % (0-2); Eosinophils Absolute Auto 100 /uL (0-450); Eosinophils Percent Auto 1.2 % (2-4); Hematocrit 45.3 % (41-53); Hemoglobin 16.1 g/dL (13.5-17.5); Lymphocytes Absolute Auto 3000 /uL (1100-4500); Lymphocytes Percent Auto 23.3 % (25-40); Mean Corpuscular HGB Conc 35.6 % (30-36); Mean Corpuscular Volume 84.3 fL (80-100); Monocytes Absolute Auto 900 /uL (0-900); Monocytes Percent Auto 6.6 % (3-14); Neutrophils Absolute Auto 8800 /uL (1500-7000); Neutrophils Percent Auto 68.1 % (50-75); Platelet Count 156 X10^3/uL (150-400); Red Blood Cell Count 5.37 X10^6/uL (4.5-5.9); Red Cell Distribution Width 12.8 % (11.6-14.8)
[2023-11-07 23:42] LABS: Alanine Aminotransferase 33 IU/L (<50); Albumin Globulin Ratio 1.1 (1.0-2.8); Alkaline Phosphatase 123 U/L (38-126); Aspartate Aminotransferase 56 IU/L (17-59); Bilirubin Total 1.7 mg/dL (0.2-1.3); Blood Urea Nitrogen 9 mg/dL (9-20); Calcium 9.5 mg/dL (8.4-10.2); Carbon Dioxide 21 mmol/L (22-32); Chloride 105 mmol/L (98-107); Estimated Glomerular Filt Rate > 60 mL/min (>60); Globulin 4.4 g/dL (1.7-4.1); Glucose 117 mg/dL (70-100); Potassium 4.4 mmol/L (3.4-5.1); Sodium 141 mmol/L (137-145); Total Protein 9.4 g/dL (6.3-8.2)
--- NOTE | 2023-11-07 23:48 | ED.SKABFB ---
HPI - Skin/Abscess/Foreign Bdy General Chief complaint: Skin/Abscess/Foreign Body Stated complaint: rash/ facial swelling t-7 days Time Seen by Provider: 11/07/23 23:03 Source: patient Mode of arrival: Ambulatory History of Present Illness HPI narrative: 43-year-old male presents for intermittent facial swelling and rash for the last several months. He states that there will be a rash on his arms that is circular with central clearing, but it will resolve and go away for several weeks before it recurs again. He also reports intermittent facial swelling that we will begin in his lips and extend to make his face puff up. He states that he has not sought any medical treatment because he was afraid of any potential diagnoses. Has not tried any therapies at home. He came to the ER today because today both the rash and the facial swelling seemed to occur at the same time. There is no rash visible or swelling noted to the patient's body Related Data Home Medications Medication Instructions Recorded Confirmed atorvastatin 20 mg tablet (Lipitor) 20 mg PO QPM ##0 01/19/17 11/26/19 metoprolol tartrate 25 mg tablet 25 mg PO DAILY ##0 10/09/17 11/26/19 albuterol sulfate 90 mcg/actuation 0 puff INH Q4HP PRN Shortness Of 05/10/19 11/21/19 aerosol inhaler (Ventolin HFA) Breath paroxetine HCl 20 mg tablet 30 mg PO DAILY 05/10/19 11/26/19 valacyclovir 500 mg tablet 500 mg PO DIRECTED PRN Cold 07/22/19 11/21/19 Sores disulfiram 500 mg tablet (Antabuse) 500 mg PO DAILY 11/08/19 11/08/19 methylphenidate HCl 10 mg 10 mg PO BID 11/08/19 11/26/19 tablet,extended release alprazolam 0.5 mg tablet 1.5 mg PO Q8H PRN Anxiety 11/21/19 Previous Rx's Medication Instructions Recorded naproxen 500 mg tablet (Naprosyn) 500 mg PO BID PRN pain #20 tabs 11/08/19 ondansetron HCl 4 mg tablet 4 mg PO Q6H PRN nausea and 11/08/19 (Zofran) vomiting #10 tabs hydrocodone 5 mg-acetaminophen 325 1 tab PO Q6H PRN pain #10 tabs mg tablet ([place]) lisinopril 10 mg tablet 10 mg PO DAILY #30 tabs 10/07/20 cetirizine 10 mg tablet 10 mg PO DAILY PRN allergy 03/16/22 symptoms #30 tabs albuterol sulfate 90 mcg/actuation 2 puff inhalation Q4-6H PRN 07/18/23 aerosol inhaler shortness of breath or wheezing #8.5 grams clotrimazole 1 % topical cream 1 applic topical BID 2 weeks #30 11/08/23 grams Allergies Allergy/AdvReac Type Severity Reaction Status Date / Time amlodipine [AMLODIPINE] Allergy Unknown Verified 11/07/23 23:07 Review of Systems Review of Systems Narrative: Negative except as noted above Patient History Medical History (Updated 11/08/23 @ 01:17 by Isidra Reyes MD) Hypertension Anxiety Surgical History No significant past surgical history Social History marital status: unknown Smoking Status: Former smoker alcohol intake: current substance use type: marijuana Smoking Status: Former smoker alcohol intake frequency: holidays/special occasions only Substance Use Type: does not use and former substance user Exam Initial Vital Signs Initial Vital Signs: Vital Signs Temperature 99.4 F 11/07/23 23:03 Pulse Rate 149 H 11/07/23 23:03 Respiratory Rate 12 11/07/23 23:03 Blood Pressure 165/112 H 11/07/23 23:03 Pulse Oximetry 98 11/07/23 23:03 Oxygen Delivery Method Room Air 11/07/23 23:03 Const: Awake, alert, no acute distress, nontoxic appearing Cardiac: Tachycardia, regular rhythm RESP: unlabored, clear bilaterally, no wheezing GI: Atraumatic, soft, nontender, nondistended, no rebound, no guarding MSK: Atraumatic, full range of motion, pulses equal Skin: Warm, Dry, intact, no rashes Neuro: AO x3, CN II-XII grossly intact, moves all extremities Psych: affect normal, mood normal, not suicidal, not homicidal Course Orders Ordered: ED Orders 11/07/23 23:13 EKG-12 Lead Stat 11/07/23 23:20 CBC Auto Diff [Complete Blood Count AUTO DIFF] Stat CMP [Comprehensive Metabolic Panel] Stat 11/08/23 01:10 UA Complete [Urinalysis and Microscopic] Stat Urine Drug Screen, Rapid Stat Discontinued Medications Dexamethasone (Dexamethasone 10 Mg/Ml Vial) 10 mg IV NOW ONE Stop: 11/07/23 23:25 Last Admin: 11/07/23 23:30 Dose: 10 mg Documented By: MITESH Diphenhydramine HCl (Diphenhydramine 50 Mg/Ml Vial) 50 mg IV NOW ONE Stop: 11/07/23 23:25 Last Admin: 11/07/23 23:30 Dose: 50 mg Documented By: MITESH Sodium Chloride (Normal Saline 0.9%) 1,000 mls @ 1,000 mls/hr IV BOLUS ONE Stop: 11/08/23 00:23 Last Infusion: 11/08/23 00:13 Dose: Infused Documented By: Admin: 11/07/23 23:29 Dose: 1,000 mls/hr Documented By: MITESH Vital Signs Vital signs: Vital Signs - 8 hr 11/07/23 23:03 11/07/23 23:06 11/07/23 23:08 Temperature 99.4 F Pulse Rate 149 H 128 H 126 H Respiratory Rate 12 20 21 Blood Pressure 165/112 H Pulse Oximetry 98 97 Oxygen Delivery Method Room Air Room Air 11/07/23 23:08 11/07/23 23:30 11/07/23 23:32 Temperature Pulse Rate 115 H 111 H Respiratory Rate 13 10 L Blood Pressure 173/114 H Pulse Oximetry 95 95 Oxygen Delivery Method Room Air 11/07/23 23:32 11/08/23 00:00 11/08/23 00:00 Temperature Pulse Rate 92 H Respiratory Rate 20 Blood Pressure 152/104 H 149/92 H Pulse Oximetry 96 Oxygen Delivery Method Room Air 11/08/23 00:30 11/08/23 00:30 11/08/23 01:00 Temperature Pulse Rate 88 103 H Respiratory Rate 18 24 Blood Pressure 134/93 H Pulse Oximetry 97 97 Oxygen Delivery Method Room Air Room Air 11/08/23 01:00 11/08/23 01:30 11/08/23 01:30 Temperature Pulse Rate 84 Respiratory Rate 15 Blood Pressure 160/104 H 149/90 H Pulse Oximetry 94 Oxygen Delivery Method Room Air 11/08/23 01:56 Temperature 97.7 F Pulse Rate Respiratory Rate Blood Pressure Pulse Oximetry Oxygen Delivery Method MDM - Skin/Abscess/Foreign Bdy Differential Diagnosis Differential diagnosis: Likely abscess of skin or subcutaneous tissue, viral exanthem and dermatophytosis Lab Data 11/07/23 23:20 11/07/23 23:20 Labs: Lab Results 11/07/23 11/08/23 11/08/23 Range/Units 23:20 01:10 01:10 WBC 13.0 H (4.5-11.0) X10^3/uL RBC 5.37 (4.5-5.9) X10^6/uL Hgb 16.1 (13.5-17.5) g/dL Hct 45.3 (41-53) % MCV 84.3 (80-100) fL MCH 30.0 (26-34) PG MCHC 35.6 (30-36) % RDW 12.8 (11.6-14.8) % Plt Count 156 (150-400) X10^3/uL Neut % (Auto) 68.1 (50-75) % Lymph % (Auto) 23.3 L (25-40) % [place] % (Auto) 6.6 (3-14) % Eos % (Auto) 1.2 L (2-4) % Baso % (Auto) 0.8 (0-2) % Neut # (Auto) 8800 H (5388-3892) /uL Lymph # (Auto) 3000 (3581-6101) /uL [place] # (Auto) 900 (0-900) /uL Eos # (Auto) 100 (0-450) /uL Baso # (Auto) 100 (0-100) /uL Sodium 141 (137-145) mmol/L Potassium 4.4 (3.4-5.1) mmol/L Chloride 105 (98-107) mmol/L Carbon Dioxide 21 L (22-32) mmol/L BUN 9 (9-20) mg/dL Creatinine 0.82 (0.66-1.25) mg/dL Estimated GFR > 60 (>60) mL/min BUN/Creatinine Ratio 11.0 (6-22) Glucose 117 H (70-100) mg/dL Calcium 9.5 (8.4-10.2) mg/dL Total Bilirubin 1.7 H (0.2-1.3) mg/dL AST 56 (17-59) IU/L ALT 33 (<50) IU/L Alkaline Phosphatase 123 (38-126) U/L Total Protein 9.4 H (6.3-8.2) g/dL Albumin 5.0 (3.5-5.0) g/dL Globulin 4.4 H (1.7-4.1) g/dL Albumin/Globulin Ratio 1.1 (1.0-2.8) Urine Color Yellow Urine Appearance Clear Urine pH 6.0 Normal (4.5-8.0) Ur Specific [place] 1.010 (1.000-1.035) Urine Protein Negative (Negative) Urine Glucose (UA) Negative (Negative) g/dL Urine Ketones Negative (NEGATIVE) Urine Occult Blood Negative (Negative) Urine Nitrate Negative (Negative) Urine Bilirubin Negative (NEGATIVE) Urine Urobilinogen 0.2 (0.2) E.U./dL Ur Leukocyte Esterase Negative (NEGATIVE) Urine RBC None seen (0-5/HPF) Urine WBC None seen (0-5/HPF) Ur Squamous Epith Cells 0-1 /hpf (0-5/HPF) Urine Bacteria None seen (None) Ur Culture Indicated? Cult not indicated Vol Urine Centrifuged 10ml (spun) U Opiates 300ng/mL cut Negative (Negative) Ur Oxycodone Screen Negative (Negative) Urine Methadone Screen Negative (Negative) Ur Barbiturates Screen Negative (Negative) U Tricyclic Antidepress Negative (Negative) Ur Phencyclidine Scrn Negative (Negative) Ur Amphetamines Screen Positive H (Negative) U Methamphetamines Scrn Negative (Negative) Ur MDMA Scrn (Ecstasy) Negative (Negative) U Benzodiazepines Scrn Negative (Negative) Urine Cocaine Screen Negative (Negative) U Marijuana (THC) Screen Negative (Negative) Urine Specific [place] Normal (Normal) Ur Creatinine Normal (Normal) MDM Narrative Medical decision making narrative: Several months of intermittent symptoms. Of note, patient has no symptoms at this time, although he said that he began to develop with a rash in the facial swelling today prompting his visit to the ED. patient noted to be very tachycardic on arrival, he states that he did not feel any symptoms from his tachycardia. When staff left the room and patient was left to rest in the stretcher his heart rate dropped to 85 beats per minute without any interventions. Laboratory work reviewed. No acute abnormalities identified. Patient counseled to take a daily anti allergy tablet to prevent facial swelling and was prescribed clotrimazole cream in case his rash returns. I highly recommended following up with primary care physician and Dermatology for definitive diagnosis of his rash. Signs and symptoms of anaphylaxis discussed and strict ED return precautions counseled. Discharge Plan Departure Patient Disposition: Home Clinical Impression: Rash and nonspecific skin eruption Instructions: DI for Atopic Dermatitis-Adult, DI for Rash Activity Restrictions/Additional Instructions: Today you were seen for a rash and facial swelling. I do not see any obvious cause based on your labs today. I highly recommend that you follow up with a primary care physician as well as a traffic control technician to see if further testing may be needed. I recommend taking a daily allergy medication such as Claritin, Susi, or Zyrtec to see if this helps your intermittent facial swelling. If you notice the rash on your arm I would recommend using the prescribed cream Prescriptions: New clotrimazole 1 % cream 1 applic topical BID 14 Days Qty: 30 0RF No Action atorvastatin [Lipitor] 20 MG tablet 20 mg PO QPM Qty: 0 metoprolol tartrate 25 MG tablet 25 mg PO DAILY Qty: 0 valacyclovir 500 mg tablet 500 mg PO DIRECTED PRN (Reason: Cold Sores) disulfiram [Antabuse] 500 mg Tablet 500 mg PO DAILY methylphenidate HCl 10 mg tablet extended release 10 mg PO BID naproxen [Naprosyn] 500 mg tablet 500 mg PO BID PRN (Reason: pain) Qty: 20 0RF ondansetron HCl [Zofran] 4 mg tablet 4 mg PO Q6H PRN (Reason: nausea and vomiting) Qty: 10 0RF alprazolam 0.5 mg tablet 1.5 mg PO Q8H PRN (Reason: Anxiety) hydrocodone-acetaminophen [[place]] 5-325 mg tablet 1 tab PO Q6H PRN (Reason: pain) Qty: 10 0RF cetirizine 10 mg tablet 10 mg PO DAILY PRN (Reason: allergy symptoms) Qty: 30 0RF paroxetine HCl 20 mg tablet 30 mg PO DAILY albuterol sulfate [Ventolin HFA] 90 MCG/PUFF HFA aerosol inhaler 0 puff INH Q4HP PRN (Reason: Shortness Of Breath) lisinopril 10 mg tablet 10 mg PO DAILY Qty: 30 0RF albuterol sulfate 90 mcg/actuation HFA aerosol inhaler 2 puff inhalation Q4-6H PRN (Reason: shortness of breath or wheezing) Qty: 8.5 0RF Referrals: Miscellaneous,Doctor, MD [Primary Care Provider] - Stand Alone Forms: Patient Portal/API
[2023-11-07 23:58] LABS: HEMOLYSIS 208 (0-50)
[2023-11-08] VITALS: BP 149/92; PULSE 92; RESP 20; O2SAT 96
[2023-11-08 00:30] VITALS: BP 134/93; PULSE 88; RESP 18; O2SAT 97
[2023-11-08 01:00] VITALS: BP 160/104; PULSE 103; RESP 24; O2SAT 97
[2023-11-08 01:18] LABS: Appearance Urine UA CLEAR; Bilirubin Urine UA NEGATIVE (NEGATIVE); Color Urine UA YELLOW; Glucose Urine UA NEGATIVE (Negative); Ketones Urine UA NEGATIVE (NEGATIVE); Leukocyte Esterase Urine UA NEGATIVE (NEGATIVE); Nitrite Urine UA NEGATIVE (Negative); Occult Blood Urine UA NEGATIVE (Negative); Protein Urine UA NEGATIVE (Negative); Urobilinogen Urine UA 0.2 E.U./dL (0.2)
[2023-11-08 01:22] LABS: UR Morphine/Opiate cutoff 300 Negative (Negative); Ur Creatinine Normal (Normal); Ur Specific Gravity Normal (Normal); Urine Amphetamines Positive (Negative); Urine Barbiturates Negative (Negative); Urine Benzodiazepines Negative (Negative); Urine Cocaine Negative (Negative); Urine MDMA Negative (Negative); Urine Methadone Negative (Negative); Urine Methamphetamines Negative (Negative); Urine Oxycodone Negative (Negative); Urine Phencyclidine Negative (Negative); Urine Tetrahydrocannabinol Negative (Negative); Urine Tricyclic Antidepressant Negative (Negative); Urine pH Normal (Normal)
[2023-11-08 01:30] VITALS: BP 149/90; PULSE 84; RESP 15; O2SAT 94
[2023-11-08 01:30] LABS: Bacteria Urine None Seen; Culture Indicated Urine Cult Not Indicated; RBC Urine None Seen (0-5/HPF); Squamous Epithelial Cell Urine 0-1 /HPF (0-5/HPF); Urine Volume 10mL (spun); WBC Urine None Seen (0-5/HPF)
[2023-11-08 01:56] VITALS: TEMP 36.5
== END 2023-11-08 01:58 | disposition home or self-care (01) ==
PROVIDERS: Emergency Provider Emergency Medicine; Family Provider Family Medicine
DX: R21 Rash and other nonspecific skin eruption (principal); Z79.899 Other long term (current) drug therapy
CPT/HCPCS: 36415; 80053; 80305; 81001; 85025; 93005; 93010; 96361; 96374; 96375; 99284; J1100; J1200